=== PATIENT | male | born 1980 | race Caucasian/White ===

== ENCOUNTER 2016-07-14 01:48 | Emergency (ER) | payer MEDICARE, MEDICAID ==
[~2016-07-14] VITALS: Ht 182.9 cm; Wt 108.9 kg
[~2016-07-14 01:48] MED LIST: /OLAN5ZYD OR; FLEXERIL OR; NAPR500T OR; NEUR600T OR; RISP1TAB OR; TRAM50TA2 OR; TRIL600T OR; ZYPR5TAB OR
[2016-07-14] MEDS ORDERED: VITA50003 (02:06)
[2016-07-14] MEDS ORDERED: FLUO20CA9 (02:06)
[2016-07-14] MEDS ORDERED: RANI150T (02:06)
[2016-07-14] MEDS ORDERED: OLAN10TA2 (02:06)
[2016-07-14] MEDS ORDERED: PRAV40TA2 (02:06)
[2016-07-14] MEDS ORDERED: OXCA600T (02:06)
[2016-07-14] MEDS ORDERED: MIRT30TA3 (02:06)
[2016-07-14] MEDS ORDERED: VITA-130 (02:06)
[2016-07-14] MEDS ORDERED: TIZA4CAP3 (02:06)
[2016-07-14] MEDS ORDERED: LISI10TA4 (02:06)
[2016-07-14] MEDS ORDERED: KETOROLAC 60 MG/2 ML VIAL (J1885) IM ONE (04:00)
--- NOTE | 2016-07-14 04:10 | REPUSA ---
REASON FOR EXAM: Pain. TECHNIQUE: Axial CT scan images without contrast. Reformatted coronal and sagittal images. COMPARISON: None FINDINGS: There is normal signal intensity from the visualized bone marrow without evidence of replacement or a cute fracture. The conus is unremarkable. Straightening of the lumbar lordosis. This can secondary to muscular spasm and pain. The vertebral alignment is within normal limits. Evaluation of the individual levels revealed the following: L5-S1: There is mild diffuse disc bulge. The spinal canal is not narrowed. There is mild bilateral ne ural foramina narrowing. L4-5: There is 3.2 mm retrolisthesis of L4 on L5. Moderate diffuse disc bulge. Superimposed broad-bas ed right paracentral/posterolateral disc protrusion measuring 4.7 mm in its largest anteroposterior d imension. The spinal canal is mildly narrowed. There is moderate bilateral neural foramina narrowing. L3-4: There is moderate diffuse disc bulge. The spinal canal is not narrowed. There is mild bilateral neural foramina narrowing. L2-3: There is mild diffuse disc bulge. The spinal canal is not narrowed. There is no evidence of sal ral foramina narrowing. L1-2: There is mild diffuse disc bulge. The spinal canal is not narrowed. There is no evidence of sal ral foramina narrowing. Normal visualized paraspinous soft tissue structures. Impression: Straightening of normal lordosis. Spondylosis. Multilevel degenerative disc disease. Findings are more prominent at L3-L4 and L4-L5 levels.
[2016-07-14 04:52] VITALS: BP 121/56
== END 2016-07-14 04:53 | disposition home or self-care (01) ==
LOC: M ED 04:15
DX: M54.9 Dorsalgia, unspecified (principal); G89.29 Other chronic pain; M51.36 Other intervertebral disc degeneration, lumbar region; M51.37 Other intervertebral disc degeneration, lumbosacral region; I10 Essential (primary) hypertension; E78.5 Hyperlipidemia, unspecified; F17.200 Nicotine dependence, unspecified, uncomplicated; Z88.5 Allergy status to narcotic agent; Z79.899 Other long term (current) drug therapy
CPT/HCPCS: 72131; 96372; 99282; J1885

== ENCOUNTER → 2016-08-07 | Outpatient (CLI) | payer MEDICARE, MEDICAID ==
[~2016-08-07] MED LIST changes: +FLUO20CA9; +LISI10TA4; +MIRT30TA3; +OLAN10TA2; +OXCA600T; +PRAV40TA2; +RANI150T; +TIZA4CAP3; +VITA-130; +VITA50003
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
== END ==
LOC: M PAIN 13:20
PROVIDERS: ATTEND Nurse Practitioner Family
DX: G89.29 Other chronic pain (principal); M51.26 Other intervertebral disc displacement, lumbar region; M54.16 Radiculopathy, lumbar region; K21.9 Gastro-esophageal reflux disease without esophagitis; I10 Essential (primary) hypertension; F31.9 Bipolar disorder, unspecified; F17.210 Nicotine dependence, cigarettes, uncomplicated; E78.00 Pure hypercholesterolemia, unspecified; E55.9 Vitamin D deficiency, unspecified; J45.909 Unspecified asthma, uncomplicated; Z79.1 Long term (current) use of non-steroidal anti-inflammatories (NSAID); Z79.899 Other long term (current) drug therapy; Z88.5 Allergy status to narcotic agent; Z88.6 Allergy status to analgesic agent

== ENCOUNTER → 2016-08-27 | Outpatient (CLI) | payer MEDICARE, MEDICAID ==
[~2016-08-27] MED LIST changes: +ISOVUE-M 300 61% 15ML VIAL (Q9967) As Ordered ONE; +LIDOCAINE 1% SDV INJ 30 ML VIAL As Ordered ONE; +diazePAM 5 MG TAB As Ordered ONE; +methylPREDNISolone SUSP 40 MG/ML (DEPO-medrol) VIAL (J1030) As Ordered ONE; +oxyCODONE 5MG TAB As Ordered ONE
--- NOTE | 2016-08-27 14:48 | REP ---
FLUOROSCOPIC GUIDANCE SPINAL INJECTION: The images were reviewed with Dr. Sheldon. The patient has a history of back pain. The portable C-arm is provided in the OR for Dr. Marrero for fluoroscopic guidance. Three intraoperative fluoroscopic spot films are obtained for needle placement verification for lumbar epidural injection The films are on the PACS system and are available for review. 24 seconds of fluoroscopy time was utilized for this procedure. Reviewed by LLUVIA Gandhi 08/27/2016 05:05 PEdited and Signed by Krishna Sheldon MD 08/27/2016 05:15 P
--- NOTE | 2016-09-07 00:24 | ECWPNPC ---
PATIENT NAME: BENITA ANGEL : 1980 GENDER: MALE VISIT DATE: 08/27/2016 DISCHARGE DATE: 08/27/16 1411 VISIT LOCKED DATE TIME: PHYSICIAN: SANTOSH COLBERT RESOURCE: SANTOSH COLBERT REASON FOR APPOINTMENT 1. INTERFARAMINAL LE, L4/5 HISTORY OF PRESENT ILLNESS HISTORY OF PRESENT ILLNESS: PAIN THE PATIENT DESCRIBES THE PAIN... FALL RISK SCREENING: SCREENING :NO FALLS IN THE PAST YEAR CURRENT MEDICATIONS TAKING PROZAC 10 MG CAPSULE 1 CAPSULE IN THE MORNING ORALLY ONCE A DAY, NOTES: 08/26/16 0900 TAKING TRILEPTAL 300 MG TABLET ORALLY , NOTES: 08/26/162099 TAKING EPIPEN SUBCUTANEOUSLY PRN, NOTES: NEVER USED TAKING ZANTAC 150 MAXIMUM STRENGTH 150 MG TABLET 1 TABLET AT BEDTIME ORALLY BID, NOTES: 08/26/162099 TAKING LISINOPRIL 10 MG TABLET 1 TABLET ORALLY ONCE A DAY, NOTES: 08/26/16899 TAKING ERGOCALCIFEROL 78273 UNIT CAPSULE 1 CAPSULE ORALLY WEEKLY, NOTES: 08/22/16 TAKING PRAVACHOL 40 MG TABLET 1 TABLET ORALLY ONCE A DAY, NOTES: 08/26/162099 TAKING PRAVASTATIN SODIUM 40 MG TABLET 1 TABLET ORALLY ONCE A DAY, NOTES: 08/26/162099 TAKING OXCARBAZEPINE 600 MG TABLET 1 CAP ORALLY BID, NOTES: 08/26/162099 TAKING SYMBYAX 6-25 MG CAPSULE 1 CAPSULE IN THE EVENING ORALLY ONCE A DAY, NOTES: 08/26/162099 TAKING OLANZAPINE-FLUOXETINE HCL 6-25 MG CAPSULE 1 CAPSULE IN THE EVENING ORALLY ONCE A DAY, NOTES: 08/26/162099 TAKING IBUPROFEN 800 MG TABLET 1 TABLET WITH FOOD OR MILK ORALLY THREE TIMES A DAY, NOTES: 1 WEEK AGO TAKING VITAMIN C 1000 MG TABLET CHEWABLE 1 TABLET ORALLY ONCE A DAY, NOTES: 08/26/162099 TAKING TIZANIDINE HCL 4 MG TABLET 1 TABLET NEEDED ORALLY THREE TIMES A DAY, NOTES: 08/26/162099 NOT-TAKING DRISDOL 22864 UNIT CAPSULE 1 CAPSULE ORALLY WEEKLY UNKNOWN CHANTIX 1 MG TABLET 1 TABLET ORALLY TWICE A DAY MEDICATION LIST REVIEWED AND RECONCILED WITH THE PATIENT PAST MEDICAL HISTORY GERD HTN BIPOLAR HYPERCHOLESTEROLEMIA INTERVERTEBRAL DISC DEGENERATION VITAMIN D DEFICIANCY HYPERCHOLESTEROLEMIA ASTHMA ALLERGIES TYLENOL: NAUSEA/VOMITING CODEINE SULFATE: HIVES REVIEW OF SYSTEMS REVIEWED BY: PROVIDER: . CONSTITUTIONAL: ANY CHANGE IN YOUR MEDICAL CONDITION? NO . CHILLS NO . FEVER NO . INFECTION: DO YOU HAVE NEW INFECTIONS? NO . DO YOU HAVE HISTORY OF MRSA? NO . MUSCULOSKELETAL: ANY NEW PATTERNS OF PAIN OR NUMBNESS? NO . GASTROENTEROLOGY: ANY NEW CHANGE IN BOWEL CONTROL? NO . GENITOURINARY: ANY NEW CHANGE IN BLADDER CONTROL? NO . IS THERE A CHANCE YOU COULD BE ? NO . HEMATOLOGY/LYMPH: DO YOU TAKE ANY BLOOD THINNERS? (FOR EXAMPLE- COUMADIN, PLAVIX, AGGRENOX, PLATEL, PRADAXA, OR XARELTO) NO . WHEN WAS YOUR LAST DOSE? DATE: TIME: . NEUROLOGY: HAVE YOU FALLEN IN THE PAST 6 MONTHS? NO . ANY NEW EXTREMITY NUMBNESS OR WEAKNESS? NO . CARDIOLOGY: DO YOU HAVE A PACEMAKER OR DEFIBRILLATOR? NO . RESPIRATORY: HAVE YOU BEEN SICK IN THE PAST WEEK? NO . FEVER NO . FLU LIKE SYMPTOMS? NO . COUGH NO . INTEGUMENTARY: DO YOU HAVE ANY RASHES OR OPEN SORES? NO . ALLERGIC/IMMUNO: ARE YOU ALLERGIC TO SHELLFISH OR IV DYE? NO . ANY NEW ALLERGIES? NO . PSYCHIATRIC: DO YOU HAVE THOUGHTS OF HURTING YOURSELF OR SOMEONE ELSE? NO . ARE YOU ABUSED, NEGLECTED, OR IN AN UNSAFE ENVIRONMENT? NO . ENDOCRINOLOGY: ARE YOU DIABETIC? NO . OTHER: DO YOU NEED ANY PRESCRIPTIONS? NO . IF YES, PLEASE LIST: ____ . ANY NEW PROBLEMS WITH YOUR MEDICATIONS? NO . WHEN DID YOU LAST EAT? ____08/26/16 1900 . WHEN DID YOU LAST DRINK? ____08/26/16 2400 . WHAT DID YOU LAST DRINK? ____WATER . NAME OF PERSON DRIVING YOU HOME? ____WOODY . DO YOU HAVE ANY OTHER QUESTIONS OR CONCERNS NO . VITAL SIGNS WT 229.8 LBS, HT 70 IN, BMI 32.97 INDEX, BP 140/73 MM HG, HR 71 /MIN, RR 16 /MIN, TEMP 98.0 F, OXYGEN SAT % 94%, NA INITIALS TL 1154, REVIEWED BY: NL. ASSESSMENTS INTERVERTEBRAL DISC DISORDERS WITH RADICULOPATHY, LUMBOSACRAL REGION - M51.17 (PRIMARY) PROCEDURES PRE PROCEDURE DIAGNOSIS LUMBOSACRAL DISC DISORDER WITH RADICULOPATHY POST PROCEDURE DIAGNOSIS LUMBOSACRAL DISC DISORDER WITH RADICULOPATHY PROCEDURE LUMBAR EPIDURAL STEROID INJECTION UNDER FLUOROSCOPIC GUIDANCE SURGEON DR. SANTOSH COLBERT COMPUTER SYSTEMS TECHNOLOGY INSTRUCTOR NONE ANESTHESIA LOCAL PRE PROCEDURE NOTE THE PATIENT HAS A HISTORY OF CHRONIC LOW BACK PAIN. I EVALUATE THE PATIENT AND REVIEWED THE CHART. I WENT OVER THE RISKS, ALTERNATIVES, AND BENEFITS ASSOCIATED WITH THIS PROCEDURE. THE PATIENT WOULD LIKE TO PROCEED AND GIVE CONSENT TO PERFORMED THE PROCEDURE. THE PATIENT DENIES UNEXPLAINABLE WEIGHT LOSS, FEVER, CHILLS, OR NEW CHANGES IN URINARY OR BOWEL CONTROL DESCRIPTION OF PROCEDURE THE PATIENT WAS BROUGHT TO THE PROCEDURE ROOM AND PLACED IN THE PRONE POSITION. THE LUMBOSACRAL AREA WAS CLEANED WITH BETADINE SOLUTION AND DRAPED ASEPTICALLY. THE PROCEDURE WAS DONE UNDER STERILE CONDITIONS. I CHECKED LATERALITY AND THE LEVEL WHERE THE PROCEDURE WAS GOING TO BE PERFORMED WITH THE PATIENT AND THE SUPPORTING STAFF AT THE MOMENT OF THE TIME OUT IN THE PROCEDURE ROOM. UNDER FLUOROSCOPIC GUIDANCE, THE TARGET POINT WAS SELECTED AT THE INTERLAMINAR LEVEL OF L5-S1. LIDOCAINE WAS USED TO NUMB THE SKIN AND THE SUBCUTANEOUS TISSUE BELOW IT. EPIDURAL TUOHY NEEDLE, 17-GAUGE, WAS ADVANCED UNDER FLUOROSCOPIC GUIDANCE AND FOLLOWING PATIENT FEEDBACK UNTIL THE EPIDURAL SPACE WAS REACHED, 7 CM DEEP INTO THE SKIN BY THE LOSS OF RESISTANCE TECHNIQUE. ISOVUE M DYE 30%, 0.25 ML, WAS INJECTED SHOWING ADEQUATE SPREAD OF THE DYE. THEN, A SOLUTION OF 3 ML OF NORMAL SALINE WITH DEPO-MEDROL 60 MG WAS INJECTED SLOWLY FOLLOWING PATIENT FEEDBACK. THERE WAS NO EVIDENCE OF BLOOD, PARESTHESIA OR CEREBROSPINAL FLUID DURING THE PROCEDURE. THE PATIENT WAS SENT TO THE RECOVERY ROOM. THE PATIENT WAS MOVING THE EXTREMITIES AND DOING WELL. THERE WAS NO COMPLICATION DURING THE PROCEDURE. FLUOROSCOPY TIME WAS 24 SECONDS POST PROCEDURE NOTE THE PATIENT WILL BE SEEN IN A FOLLOW UP IN THE NEXT FEW WEEKS. INSTRUCTIONS WERE GIVEN, QUESTIONS WERE ANSWERED, AND THE PATIENT EXPRESSED UNDERSTANDING AND AGREES WITH THE PLAN. I, ERIC ELIAS, DOCUMENTED THE ABOVE INFORMATION ACTING A SCRIBE FOR DR. COLBERT. I HAVE REVIEWED THE ABOVE DOCUMENT, WRITTEN BY ERIC HARMON AND I VERIFY THAT IT IS ACCURATE DIAGNOSTIC IMAGING [facility] FLUORO GUIDE SPINE INJECTION (PAIN)[id number] PROCEDURE CODES 05825 LUMBAR/SACRAL W/ IMAGING 6045F RADXPS IN END [id number] PXD DISPOSITION & COMMUNICATION FOLLOW UP 3 WEEKS ELECTRONICALLY SIGNED BY SANTOSH COLBERT MD ON 09/06/2016 AT 12:32 PM EDT DISCLAIMER : THIS IS A VISIT SUMMARY EXTRACTED FROM THE [employer] CHART. IT IS NOT A COPY OF THE [employer] PROGRESS NOTE. ZONIA
== END ==
LOC: M PAIN 11:40
PROVIDERS: ATTEND Anesthesiology
DX: G89.29 Other chronic pain (principal); M51.17 Intervertebral disc disorders with radiculopathy, lumbosacral region; K21.9 Gastro-esophageal reflux disease without esophagitis; I10 Essential (primary) hypertension; F31.9 Bipolar disorder, unspecified; E78.00 Pure hypercholesterolemia, unspecified; E55.9 Vitamin D deficiency, unspecified; J45.909 Unspecified asthma, uncomplicated; Z88.5 Allergy status to narcotic agent; Z88.6 Allergy status to analgesic agent; Z79.1 Long term (current) use of non-steroidal anti-inflammatories (NSAID); Z79.899 Other long term (current) drug therapy
CPT/HCPCS: 62323; J1030; Q9967

== ENCOUNTER 2016-09-23 03:32 | Emergency (ER) | payer MEDICARE, MEDICAID ==
[~2016-09-23 03:32] MED LIST changes: +FLUO20CA19; -FLUO20CA9; -ISOVUE-M 300 61% 15ML VIAL (Q9967) As Ordered ONE; -LIDOCAINE 1% SDV INJ 30 ML VIAL As Ordered ONE; -VITA-130; +VITA1CAP40; -VITA50003; +VITA500T; -diazePAM 5 MG TAB As Ordered ONE; -methylPREDNISolone SUSP 40 MG/ML (DEPO-medrol) VIAL (J1030) As Ordered ONE; -oxyCODONE 5MG TAB As Ordered ONE
== END 2016-09-23 03:46 | disposition left against medical advice (07) ==
LOC: M ED 03:32
DX: H92.20 Otorrhagia, unspecified ear (principal); Z53.29 Procedure and treatment not carried out because of patient's decision for other reasons

== ENCOUNTER → 2017-02-11 | Outpatient (CLI) | payer MEDICARE, MEDICAID | LOC: M PAIN 14:00 | PROVIDERS: ATTEND Nurse Practitioner Family | DX: M51.26 Other intervertebral disc displacement, lumbar region (principal); M54.16 Radiculopathy, lumbar region; G89.29 Other chronic pain; F17.210 Nicotine dependence, cigarettes, uncomplicated; Z79.899 Other long term (current) drug therapy; Z88.8 Allergy status to other drugs, medicaments and biological substances; Z88.5 Allergy status to narcotic agent ==

== ENCOUNTER → 2017-04-02 | Outpatient (CLI) | payer MEDICARE, MEDICAID ==
[~2017-04-02] MED LIST changes: -/OLAN5ZYD OR; -FLEXERIL OR; -FLUO20CA19; +ISOVUE-M 300 61% 15ML VIAL (Q9967) As Ordered; +LIDOCAINE 1% SDV INJ 30 ML VIAL As Ordered; -LISI10TA4; -MIRT30TA3; -NAPR500T OR; -NEUR600T OR; -OLAN10TA2; -OXCA600T; -PRAV40TA2; -RANI150T; -RISP1TAB OR; -TIZA4CAP3; -TRAM50TA2 OR; -TRIL600T OR; -VITA1CAP40; -VITA500T; -ZYPR5TAB OR; +diazePAM 5 MG TAB As Ordered; +methylPREDNISolone SUSP 40 MG/ML (DEPO-medrol) VIAL (J1030) As Ordered; +oxyCODONE 5MG TAB As Ordered
== END ==
LOC: M PAIN 14:00
DX: G89.29 Other chronic pain (principal); M51.16 Intervertebral disc disorders with radiculopathy, lumbar region; I10 Essential (primary) hypertension; F31.9 Bipolar disorder, unspecified; E78.00 Pure hypercholesterolemia, unspecified; J45.909 Unspecified asthma, uncomplicated; F17.210 Nicotine dependence, cigarettes, uncomplicated; Z88.5 Allergy status to narcotic agent; Z88.8 Allergy status to other drugs, medicaments and biological substances; Z79.899 Other long term (current) drug therapy
CPT/HCPCS: J1030

== ENCOUNTER 2017-04-24 19:55 | Emergency (ER) | payer MEDICARE, MEDICAID ==
[2017-04-24] MEDS: traMADol 50 MG TAB PO (22:36)
== END 2017-04-24 23:12 | disposition home or self-care (01) ==
LOC: M ED 19:55
DX: S92.424A Nondisplaced fracture of distal phalanx of right great toe, initial encounter for closed fracture (principal); X58.XXXA Exposure to other specified factors, initial encounter; Y92.009 Unspecified place in unspecified non-institutional (private) residence as the place of occurrence of the external cause; J45.909 Unspecified asthma, uncomplicated; I10 Essential (primary) hypertension; K21.9 Gastro-esophageal reflux disease without esophagitis; M54.9 Dorsalgia, unspecified; G89.29 Other chronic pain; E78.9 Disorder of lipoprotein metabolism, unspecified; F31.9 Bipolar disorder, unspecified; Z79.899 Other long term (current) drug therapy; Z88.5 Allergy status to narcotic agent
CPT/HCPCS: 73630

== ENCOUNTER 2017-06-03 00:09 | Emergency (ER) | payer MEDICARE, MEDICAID ==
[2017-06-03] MEDS: KETOROLAC 30 MG/ML VIAL (J1885) IV (02:07)
[2017-06-03] MEDS: dexameTHASONE 20 MG/5 ML VIAL (J1100) IV (02:10)
== END 2017-06-03 02:59 | disposition home or self-care (01) ==
LOC: M ED 00:09
DX: J42 Unspecified chronic bronchitis (principal); R07.89 Other chest pain; I10 Essential (primary) hypertension; E78.5 Hyperlipidemia, unspecified; F33.9 Major depressive disorder, recurrent, unspecified; F17.200 Nicotine dependence, unspecified, uncomplicated; Z88.5 Allergy status to narcotic agent; Z79.899 Other long term (current) drug therapy
CPT/HCPCS: J1100

== ENCOUNTER 2017-12-20 07:24 | Emergency (ER) | payer MEDICARE, MEDICAID ==
[2017-12-20] MEDS: LIDOCAINE 2% MDV 20 ML VIAL SC (08:00)
[2017-12-20] MEDS: CLINDAMYCIN 150 MG CAP PO (08:01)
[2017-12-20] MEDS: NORCO, ANEXSIA 5/325MG TABLET (HYDROcodone/ACETAMINOPHEN) PO (08:01)
[2017-12-20] MEDS: ONDANSETRON 4 MG ORAL DISINTEGRATING TAB (Q0162 PER 1MG) PO (09:53)
== END 2017-12-20 10:00 | disposition home or self-care (01) ==
LOC: M ED 07:24
DX: L02.214 Cutaneous abscess of groin (principal); I10 Essential (primary) hypertension
CPT/HCPCS: Q0162

== ENCOUNTER 2017-12-22 16:26 | Emergency (ER) | payer MEDICARE, MEDICAID | END 2017-12-22 17:09 | disposition home or self-care (01) | LOC: M ED 16:26 | DX: L02.214 Cutaneous abscess of groin (principal); Z48.00 Encounter for change or removal of nonsurgical wound dressing; I10 Essential (primary) hypertension; E78.5 Hyperlipidemia, unspecified; E11.9 Type 2 diabetes mellitus without complications; R51 Headache; Z77.098 Contact with and (suspected) exposure to other hazardous, chiefly nonmedicinal, chemicals; Z79.899 Other long term (current) drug therapy; Z79.2 Long term (current) use of antibiotics; Z79.84 Long term (current) use of oral hypoglycemic drugs | CPT/HCPCS: 99282 ==

== ENCOUNTER 2017-12-25 13:01 | Emergency (ER) | payer MEDICARE, MEDICAID | END 2017-12-25 14:13 | disposition home or self-care (01) | LOC: M ED 13:01 | DX: Z48.00 Encounter for change or removal of nonsurgical wound dressing (principal); I10 Essential (primary) hypertension; J45.909 Unspecified asthma, uncomplicated; F31.9 Bipolar disorder, unspecified; Z79.899 Other long term (current) drug therapy; Z88.5 Allergy status to narcotic agent | CPT/HCPCS: 99283 ==

== ENCOUNTER → 2018-01-27 | Outpatient (REF) | payer MEDICARE, MEDICAID ==
[2018-01-27 18:14] LABS: RUBELLA IgG QUALITATIVE IMMUNE (IMMUNE)
[2018-01-29 08:15] LABS: MUMPS VIRUS IgG ANTIBODY <9.0 AU/mL (Immune >10.9)
[2018-01-29 08:15] LABS: RUBEOLA IgG ANTIBODY >300.0 AU/mL (Immune >29.9)
== END ==
LOC: M LAB REF 16:50
DX: Z01.84 Encounter for antibody response examination (principal)
CPT/HCPCS: 86762

== ENCOUNTER → 2018-05-09 | Outpatient (REF) | payer MEDICARE, MEDICAID ==
[~2018-05-09] MED LIST changes: +/OLAN5ZYD OR; +AMOX875T2; +CLEO300C2 PO; +CLON0.2T; +DULO1CAP3; +FLEXERIL OR; +FLUO20CA19; +GABA600T4; -ISOVUE-M 300 61% 15ML VIAL (Q9967) As Ordered; +KETO10TAB PO; -LIDOCAINE 1% SDV INJ 30 ML VIAL As Ordered; +LISI10TA4; +METF10004; +MIRT30TA3; +NAPR-50 PO; +NAPR500T OR; +NEUR600T OR; +NORCOTAB PO; +OLAN10TA2; +OXCA600T8; +PRAV40TA2; +PRED20TA PO; +RANI150T; +RISP1TAB OR; +TIZA4CAP; +TRAM50TA2 OR; +TRIL600T OR; +VITA50005; +VITA500T; +ZYPR5TAB OR; -diazePAM 5 MG TAB As Ordered; -methylPREDNISolone SUSP 40 MG/ML (DEPO-medrol) VIAL (J1030) As Ordered; -oxyCODONE 5MG TAB As Ordered
[2018-05-09 19:37] LABS: BASO % 0.3 % (0.0-1.0); EOS # 0.2 10^3/uL (0.0-0.50); EOS % 1.9 % (0.0-3.0); HEMATOCRIT 45.9 % (42.0-52.0); HEMOGLOBIN 15.7 g/dl (13.5-17.5); LYMPH # 2.2 10^3/uL (1.5-4.5); LYMPH % 21.4 % (24.0-44.0); MEAN CORPUSCULAR HEMOGLOBIN 29.3 pg (27.0-33.0); MEAN CORPUSCULAR HGB CONC 34.2 g/dl (32.0-36.5); MEAN CORPUSCULAR VOLUME 85.8 fl (80.0-96.0); MONO # 0.6 10^3/uL (0.0-0.8); MONO % 5.8 % (0.0-5.0); NEUTROPHILS # 7.3 10^3/uL (1.8-7.7); NEUTROPHILS % 70.3 % (36.0-66.0); PLATELET COUNT, AUTOMATED 235 10^3/uL (150-450); RED BLOOD COUNT 5.35 10^6/uL (4.30-6.10); WHITE BLOOD COUNT 10.3 10^3/uL (4.0-10.0)
[2018-05-09 19:51] LABS: ALBUMIN 3.9 GM/DL (3.2-5.2); ALT/SGPT 39 U/L (12-78); BILIRUBIN,TOTAL 0.4 MG/DL (0.2-1.0); BLOOD UREA NITROGEN 5 MG/DL (7-18); CALCIUM LEVEL 8.6 MG/DL (8.5-10.1); CARBON DIOXIDE LEVEL 27 MEQ/L (21-32); CHLORIDE LEVEL 105 MEQ/L (98-107); CHOLESTEROL LEVEL 203 MG/DL (<200); CHOLESTEROL RISK RATIO 4.833 (<5); CREATININE FOR GFR 0.89 MG/DL (0.70-1.30); GLOMERULAR FILTRATION RATE > 60.0 (>60); GLUCOSE, FASTING 99 MG/DL (70-100); HDL CHOLESTEROL 42 MG/DL (>40); LDL CHOLESTEROL 125 MG/DL (<100); NON-HDL-C 161 MG/DL; POTASSIUM SERUM 3.8 MEQ/L (3.5-5.1); SODIUM LEVEL 142 MEQ/L (136-145); TOTAL PROTEIN 7.4 GM/DL (6.4-8.2); TRIGLYCERIDES LEVEL 181 MG/DL (<150)
[2018-05-09 19:53] LABS: HEMOGLOBIN A1c 5.9 %
[2018-05-09 19:54] LABS: TOTAL 25(OH) VITAMIN D 8.7 NG/ML (30.0-100.0); VITAMIN B12 LEVEL 538 PG/ML
[2018-05-12 11:24] LABS: FOLATE 6.1 NG/ML
== END ==
LOC: M LAB REF 19:16
PROVIDERS: ATTEND Nurse Practitioner Family
DX: I10 Essential (primary) hypertension (principal); Z13.9 Encounter for screening, unspecified

== ENCOUNTER 2018-05-30 10:09 | Emergency (ER) | payer MEDICARE, MEDICAID ==
[~2018-05-30] VITALS: Ht 182.9 cm; Wt 116.3 kg
[2018-05-30] MEDS ORDERED: TRAM50TA2 (10:43)
[2018-05-30] MEDS ORDERED: MIRT30TA3 PO (10:43)
[2018-05-30] MEDS ORDERED: KETOROLAC TROMETHAMINE 10 MG TAB PO ONE (10:45)
--- NOTE | 2018-05-30 11:53 | REP ---
RIGHT ANKLE COMPLETE: 05/30/2018. Clinical history: Ankle pain. Findings: Four views were provided. The mortise joint is symmetric and preserved. There is no talar dome osteochondral defect. No fracture or focal bone lesion in the distal tibia or fibula. No avulsion. Subtalar joints are intact. No heel spurs. Calcaneus and talus and their articulations with the tarsal bones and each other are normal. Impression: 1. Negative right ankle series for fracture, avulsion, disruption of the mortise joint nor any acute bony finding. I see no heel spurs. Subtalar joints intact. Electronically Signed by Jordy Burciaga MD 05/30/2018 06:35 P
[2018-05-30] MEDS ORDERED: IBUP80TA PO (12:03)
[2018-05-30 12:21] VITALS: BP 123/64
== END 2018-05-30 12:23 | disposition home or self-care (01) ==
LOC: M ED 10:09
DX: S93.411A Sprain of calcaneofibular ligament of right ankle, initial encounter (principal); W19.XXXA Unspecified fall, initial encounter; Y92.410 Unspecified street and highway as the place of occurrence of the external cause

== ENCOUNTER 2018-08-06 01:48 | Emergency (ER) | payer MEDICARE, MEDICAID ==
[~2018-08-06] VITALS: Ht 182.9 cm; Wt 118.2 kg
[~2018-08-06 01:48] MED LIST changes: -/OLAN5ZYD OR; +HYDR-3715 PO; +IBUP80TA PO; +MIRT30TA3 PO; -NAPR-50 PO; +NAPR-837 PO; -NORCOTAB PO; +TRAM50TA2; +ZYPR1TAB3 OR
[2018-08-06] MEDS ORDERED: KETOROLAC 30 MG/ML VIAL (J1885) IV ONE (03:30)
[2018-08-06] MEDS ORDERED: METOCLOPRAMIDE INJ 10MG/2ML VIAL (J2765) IV ONE (03:30)
[2018-08-06] MEDS ORDERED: PSEU30TA88 PO (04:46)
[2018-08-06 04:53] VITALS: BP 120/80
== END 2018-08-06 04:56 | disposition home or self-care (01) ==
LOC: M ED 01:48
DX: R51 Headache (principal); I10 Essential (primary) hypertension; F31.9 Bipolar disorder, unspecified; F11.11 Opioid abuse, in remission; Z79.899 Other long term (current) drug therapy; Z88.5 Allergy status to narcotic agent; F17.210 Nicotine dependence, cigarettes, uncomplicated
CPT/HCPCS: 96374; 96375; 99284; J1885; J2765

== ENCOUNTER 2018-08-24 21:00 | Emergency (ER) | payer MEDICARE, MEDICAID ==
[~2018-08-24] VITALS: Ht 180.3 cm; Wt 122.7 kg
[~2018-08-24 21:00] MED LIST changes: +PSEU30TA88 PO
[2018-08-24] MEDS ORDERED: NS 1,000 ML IV ONE (21:15)
[2018-08-24 22:45] VITALS: BP 140/77
--- NOTE | 2018-08-25 07:08 | ECGEPIP ---
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
== END 2018-08-24 22:55 | disposition home or self-care (01) ==
LOC: M ED 21:00
DX: E86.0 Dehydration (principal); F31.9 Bipolar disorder, unspecified; J45.909 Unspecified asthma, uncomplicated; Z72.0 Tobacco use; Z79.899 Other long term (current) drug therapy; Z88.5 Allergy status to narcotic agent; Z79.84 Long term (current) use of oral hypoglycemic drugs

== ENCOUNTER 2018-09-08 03:53 | Emergency (ER) | payer MEDICARE, MEDICAID ==
[~2018-09-08] VITALS: Ht 180.3 cm; Wt 111.4 kg
[2018-09-08 05:44] VITALS: BP 135/76
[2018-09-08] MEDS ORDERED: KETOROLAC 60 MG/2 ML VIAL (J1885) IM ONE (05:45)
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
--- NOTE | 2018-09-08 07:02 | REP ---
Clinical: Trauma. Technique: AP, lateral, bilateral oblique views left wrist . Findings: The carpal bones, surrounding osseous structures, soft tissues, and joint spaces are normal. There is no evidence for acute fracture or dislocation. No subcutaneous emphysema or radiodense foreign body. Impression: Normal left wrist series. No acute fracture or dislocation Electronically Signed by Medhat Peterson MD 09/08/2018 06:53 A
== END 2018-09-08 05:54 | disposition home or self-care (01) ==
LOC: M ED 03:53
DX: S96.212A Strain of intrinsic muscle and tendon at ankle and foot level, left foot, initial encounter (principal); S66.912A Strain of unspecified muscle, fascia and tendon at wrist and hand level, left hand, initial encounter; X58.XXXA Exposure to other specified factors, initial encounter; Y92.830 Public park as the place of occurrence of the external cause; Y93.64 Activity, baseball; G89.29 Other chronic pain; F17.200 Nicotine dependence, unspecified, uncomplicated; Z88.5 Allergy status to narcotic agent; Z79.899 Other long term (current) drug therapy; Z79.84 Long term (current) use of oral hypoglycemic drugs
CPT/HCPCS: 73110; 73610; 96372; 99283; J1885

== ENCOUNTER → 2018-09-16 | Outpatient (CLI) | payer MEDICARE, MEDICAID ==
[~2018-09-16] MED LIST changes: -DULO1CAP3; +DULO1CAP6
--- NOTE | 2018-09-16 16:41 | REP ---
Clinical: Wrist sprain. Technique: AP and lateral views of the left wrist. Findings: The carpal bones, surrounding osseous structures, soft tissues, and joint spaces are normal. There is no evidence for acute fracture or dislocation. No subcutaneous emphysema or radiodense foreign body. Impression: Normal wrist series. No acute fracture or dislocation Electronically Signed by Medhat Peterson MD 09/16/2018 04:32 P
== END ==
LOC: M RAD 16:23
PROVIDERS: ATTEND Physician Assistant Medical
DX: S63.502A Unspecified sprain of left wrist, initial encounter (principal); X58.XXXA Exposure to other specified factors, initial encounter; Y92.9 Unspecified place or not applicable

== ENCOUNTER 2019-09-17 20:36 | Emergency (ER) | payer MEDICARE, MEDICAID ==
[~2019-09-17] VITALS: Ht 182.9 cm; Wt 115.2 kg
[2019-09-17 20:36] VITALS: BP 165/87
[~2019-09-17 20:36] MED LIST changes: -FLUO20CA19; +FLUO20CA22; +VITA-243; -VITA500T
[2019-09-17] MEDS ORDERED: FLUTISP (20:42)
[2019-09-17] MEDS ORDERED: AZEL0.055 (20:42)
[2019-09-17] MEDS ORDERED: LATU40TA (20:42)
[2019-09-17] MEDS ORDERED: QUET100T2 (20:42)
[2019-09-17] MEDS ORDERED: ASPE4PAD TOP (21:45)
[2019-09-17] MEDS ORDERED: methocarbamoL 750 MG TAB PO ONE (21:45)
[2019-09-17] MEDS ORDERED: ROBA750T4 PO (21:45)
[2019-09-17] MEDS ORDERED: BIOF4GEL4 TOP (21:45)
== END 2019-09-17 21:50 | disposition home or self-care (01) ==
LOC: M ED 20:36
DX: M54.5 Low back pain (principal); F17.200 Nicotine dependence, unspecified, uncomplicated; G43.709 Chronic migraine without aura, not intractable, without status migrainosus; I10 Essential (primary) hypertension; E78.00 Pure hypercholesterolemia, unspecified; J45.909 Unspecified asthma, uncomplicated; F41.9 Anxiety disorder, unspecified; F32.9 Major depressive disorder, single episode, unspecified; Z79.899 Other long term (current) drug therapy; Z88.5 Allergy status to narcotic agent

== ENCOUNTER → 2019-09-24 | Outpatient (REF) | payer MEDICARE, MEDICAID ==
[~2019-09-24] MED LIST changes: +ASPE4PAD TOP; +AZEL0.055; +BIOF4GEL4 TOP; +FLUTISP; +LATU40TA; +MEDR4PAK PO; +QUET100T2; +ROBA750T4 PO
[2019-09-24 15:54] LABS: BASO % 0.3 % (0.0-1.0); EOS # 0.2 10^3/uL (0.0-0.5); EOS % 1.5 % (0.0-3.0); HEMATOCRIT 46.3 % (42.0-52.0); HEMOGLOBIN 15.9 g/dl (13.5-17.5); LYMPH # 2.7 10^3/uL (1.5-5.0); LYMPH % 23.1 % (24.0-44.0); MEAN CORPUSCULAR HEMOGLOBIN 29.9 pg (27.0-33.0); MEAN CORPUSCULAR HGB CONC 34.3 g/dl (32.0-36.5); MONO # 0.9 10^3/uL (0.0-0.8); MONO % 7.9 % (0.0-5.0); NEUTROPHILS # 7.8 10^3/uL (1.5-8.5); NEUTROPHILS % 66.9 % (36.0-66.0); PLATELET COUNT, AUTOMATED 243 10^3/uL (150-450); RED BLOOD COUNT 5.32 10^6/uL (4.30-6.10); WHITE BLOOD COUNT 11.7 10^3/uL (4.0-10.0)
[2019-09-24 16:29] LABS: ALBUMIN 3.6 GM/DL (3.2-5.2); ALT/SGPT 32 U/L (12-78); BILIRUBIN,TOTAL 0.2 MG/DL (0.2-1.0); BLOOD UREA NITROGEN 10 MG/DL (7-18); CALCIUM LEVEL 9.2 MG/DL (8.5-10.1); CARBON DIOXIDE LEVEL 28 MEQ/L (21-32); CHLORIDE LEVEL 108 MEQ/L (98-107); CHOLESTEROL LEVEL 201 MG/DL (<200); CHOLESTEROL RISK RATIO 5.911 (<5); CREATININE FOR GFR 0.91 MG/DL (0.70-1.30); FREE T4 1.24 NG/DL (0.76-1.46); GLOMERULAR FILTRATION RATE > 60.0 (>60); GLUCOSE, FASTING 75 MG/DL (70-100); HDL CHOLESTEROL 34 MG/DL (>40); LDL CHOLESTEROL 134 MG/DL (<100); NON-HDL-C 167 MG/DL; SODIUM LEVEL 142 MEQ/L (136-145); TOTAL PROTEIN 7.4 GM/DL (6.4-8.2); TRIGLYCERIDES LEVEL 167 MG/DL (<150)
[2019-09-24 17:02] LABS: HEMOGLOBIN A1c 5.9 %
== END ==
LOC: M LAB REF 15:22
PROVIDERS: ATTEND Nurse Practitioner Family
DX: R73.03 Prediabetes (principal); Z13.9 Encounter for screening, unspecified; M54.89 Other dorsalgia; F17.290 Nicotine dependence, other tobacco product, uncomplicated; I10 Essential (primary) hypertension; Z79.899 Other long term (current) drug therapy

== ENCOUNTER 2019-10-17 09:10 | Emergency (ER) | payer MEDICARE, MEDICAID ==
[~2019-10-17 09:10] MED LIST changes: +ACETAMINOPHEN 500 MG TAB As Ordered ONE; +ACETAMINOPHEN 500 MG TAB ONE; +IBUPROFEN 600MG TAB As Ordered ONE; +IBUPROFEN 600MG TAB ONE; -MEDR4PAK PO
== END 2019-10-17 10:45 | disposition home or self-care (01) ==
LOC: M ED 09:10
DX: S99.911A Unspecified injury of right ankle, initial encounter (principal); X50.1XXA Overexertion from prolonged static or awkward postures, initial encounter; Y92.410 Unspecified street and highway as the place of occurrence of the external cause; M54.9 Dorsalgia, unspecified; F31.9 Bipolar disorder, unspecified; F17.220 Nicotine dependence, chewing tobacco, uncomplicated; Z88.5 Allergy status to narcotic agent

== ENCOUNTER 2019-10-30 18:57 | Emergency (ER) | payer MEDICARE, MEDICAID ==
[~2019-10-30 18:57] MED LIST changes: -ACETAMINOPHEN 500 MG TAB As Ordered ONE; -ACETAMINOPHEN 500 MG TAB ONE; -IBUPROFEN 600MG TAB As Ordered ONE; -IBUPROFEN 600MG TAB ONE
--- NOTE | 2019-11-30 14:18 | ECGEPIP ---
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
== END 2019-10-30 20:59 | disposition left against medical advice (07) ==
LOC: M ED 18:57
DX: Z53.21 Procedure and treatment not carried out due to patient leaving prior to being seen by health care provider (principal)

== ENCOUNTER 2019-12-05 07:20 | Emergency (ER) | payer MEDICARE, MEDICAID ==
[~2019-12-05] VITALS: Ht 182.9 cm; Wt 112.1 kg
[2019-12-05] MEDS ORDERED: MEDR4PAK PO (08:48)
[2019-12-05 08:58] VITALS: BP 140/67
== END 2019-12-05 08:59 | disposition home or self-care (01) ==
LOC: M ED 07:20
DX: G89.29 Other chronic pain (principal); M54.5 Low back pain; E11.9 Type 2 diabetes mellitus without complications; I10 Essential (primary) hypertension; E78.5 Hyperlipidemia, unspecified; J45.909 Unspecified asthma, uncomplicated; F41.9 Anxiety disorder, unspecified; F31.9 Bipolar disorder, unspecified; F17.200 Nicotine dependence, unspecified, uncomplicated; Z88.6 Allergy status to analgesic agent; Z79.899 Other long term (current) drug therapy

== ENCOUNTER 2019-12-09 23:15 | Emergency (ER) | payer MEDICARE, MEDICAID ==
[~2019-12-09] VITALS: Ht 185.4 cm; Wt 112.8 kg
[2019-12-09 23:15] VITALS: BP 151/88
[~2019-12-09 23:15] MED LIST changes: +MEDR4PAK PO
== END 2019-12-10 00:04 | disposition home or self-care (01) ==
LOC: M ED 23:15
DX: S80.812A Abrasion, left lower leg, initial encounter (principal); W18.49XA Other slipping, tripping and stumbling without falling, initial encounter; Y92.320 Baseball field as the place of occurrence of the external cause; Y93.64 Activity, baseball; Y99.9 Unspecified external cause status; Z88.6 Allergy status to analgesic agent; F17.200 Nicotine dependence, unspecified, uncomplicated; Z79.899 Other long term (current) drug therapy

== ENCOUNTER 2021-01-11 02:31 | Emergency (ER) | payer MEDICARE, MEDICAID ==
[~2021-01-11] VITALS: Ht 182.9 cm; Wt 118.2 kg
[~2021-01-11 02:31] MED LIST changes: +LISI10TA22; -LISI10TA4; -OLAN10TA2; +OLAN1TAB20
--- OUTSIDE RECORDS SUMMARY | 2021-01-11 02:38 | CCD ---
Author Author Curtis Perez Organization Unknown Address [address] [address] Phone Care Team Providers Care Radial Arm Saw Operator Name Role Phone ChrisVladimirJulieta PCP Allergies, Adverse Reactions, Alerts Concept Allergy Name Reaction Severity Onset Date Status Documentation Date Phone Number Npid Taxonomy Code Taxonomy Desc Author Last Name Author Fi rst Name Concept Type 2670 codeine sulfate vomiting 12/30/2014 Active 12/30/2014 3 [id number] Psych[facility] RX NORM Problem List Concept Problem Description Status Start Date Created Date Resolv ed Date Snomed Code F31.31 Bipolar I Disorder, Current or most rece nt episode depressed, Mild Active 02/17/2015 02/17/2015 F63.81 Intermittent Explosive Disorder Active 02/17/2015 015 F17.219 Nicotine dependence, cigarettes, wunsp disorders Activ e 07/02/2016 07/02/2016 M54.31 Sciatica, right side Active 07/19/2016 07/19/2016 Medications Rx Norm Medication Route Route Concept Start Date Stop Date Dosage Chalo quency Duration Formula Strength Dosage Form Dosage Form Code Dosage Description Medication Id Account Npid Author First Name Author Last Name Taxonomy Code Taxonomy Desc Phone Number [id number] Cymbalta 08/16/2016 once a day 60 mg capsule,delayed release(DR/EC) 73559 [id number] Claribel Duckworth [id number] Nurse Practitioner [phone] [id number] quetiapine by mouth T18770 07/22/2019 at bedtime 100 mg ta blet 64388 350575 [id number] Claribel Duckworth [id number] Nurse Practitioner [phone] [id number] Zyprexa Zydis by mouth L12815 10/18/2020 11/17/2020 at bedtime 30 15 mg tablet,disintegrating as needed 25221 554044 [phone] Claribel evangelista [id number] Nurse Practitioner [phone] Latuda by mouth [id number] 10/06/2019 01/16/2021 once a day 30 60 m g tablet 68052 332227 [phone] Claribel Duckworth [id number] Nurse Pra ctitioner [phone] 251929 gabapentin 01/06/2019 02/15/2021 three times a day 30 600 mg tablet as needed 33137 828769 [id number] Claribel Duckworth [id number] Nurse P ractitioner [phone] Social History Social History Element Description Concept Effective Date Smoking Status Unknown if ever smoked [id number] Immunizations No Data in Section Vital Signs No Data in Section Procedures Date Concept Id Description Targeted Site Concept Targeted Site Concept Type 10/26/2020 45036 Extended Individual Psychotherapy - 45 min CPT Patient has no history of implantable de vices Encounters Encounter Start Date End Date Encounter Type Description Diagnosis Di agnosis Desc Location Author First Name Author Last Name Npid Taxonomy Cod e Taxonomy Desc Phone Number Location Addr1 Location Addr2 Location [facility] Location Sta te Location Zip [id number] 10/26/2020 10/26/2020 76260 Extended Individual Psych otherapy - 45 min F31.31 Bipolar Disorder, Current Episode Depressed, Mild Comm [facility] Chris Julieta [phone] [id number] Watch Assembler [id number] [address] Plan of Treatment No Data in Section Lab Results No Data in Section Instructions No Data in Section Insurance Providers Insurance Id Policy Effective Date Policy Thru Date Company [employer] [id number] 2016 MEDICARE [id number] MEDICAID
--- OUTSIDE RECORDS SUMMARY | 2021-01-11 02:38 | CCD ---
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 12/30/2014 Active 12/30/2014 3 [id number] Psychiatric/[facility]ental [facility] RX NORM Problem [...] Name Taxonomy Code Taxonomy Desc Phone Number [id number] Cymbalta 08/16/2016 once a day 60 mg capsule,delayed release(DR/EC) 85980 935324 [id number] Claribel Duckworth [id number] 0000X Nurse Practitioner [id number] 127370 quetiapine by mouth [id number] 07/22/2019 at bedtime 100 mg ta blet 10014 556470 [id number] Claribel Duckworth [id number] Nurse Practitioner [phone] 228521 gabapentin 01/06/2019 03/15/2021 three times a day 30 600 mg tablet as needed 27205 174647 [id number] Claribel Duckworth [id number] Nurse P ractitioner [id number] Latuda by mouth [id number] 10/06/2019 02/13/2021 once a day 30 60 m g tablet 80893 525575 [id number] Claribel Duckworth [id number] Nurse Bryan ctitioner [id number] 130485 Zyprexa Zydis by mouth [id number] 10/18/2020 12/15/2020 at bedtime 30 15 mg tablet,disintegrating as needed 97349 648374 [id number] Claribeljoby Grady tonja [id number] Nurse Practitioner [id number] Social History Social History Element Description Concept Effective Date Smoking Status Unknown if ever smoked [id number] Immunizations No Data in Section Vital Signs No Data in Section Procedures Date Concept Id Description Targeted Site Concept Targeted Site Concept Type 12/01/2020 25095 Extended Individual Psychotherapy - 45 min CPT Patient has no history of implantable de vices Encounters Encounter Start Date End Date Encounter Type Description Diagnosis Di agnosis Desc Location Author First Name Author Last Name Npid Taxonomy Cod e Taxonomy Desc Phone Number Location Addr1 Location Addr2 Location [facility] Location Sta te Location Zip [id number] 12/01/2020 12/01/2020 93526 Extended Individual Psych otherapy - 45 min F31.31 Bipolar Disorder, Current Episode Depressed, Mild Comm [facility] Chris Julieta [phone] [id number] [place] [id number] [address] Plan of Treatment No Data in Section Lab Results No Data in Section Instructions No Data in Section Insurance Providers Insurance Id Policy Effective Date Policy Thru Date Company [employer] [id number] 2016 MEDICARE [id number] 2016 MEDICAID
--- OUTSIDE RECORDS SUMMARY | 2021-01-11 02:38 | CCD ---
Author Author Curtis Duckworth Organization Unknown Address [address] [place] [address] Phone Care Team Providers Care Child Development Consultant Name Role Phone Claribel Duckworth PCP Allergies, Adverse Reactions, Alerts Concept Allergy Name Reaction Severity Onset Date Status Documentation Date Phone Number Npid Taxonomy Code Taxonomy Desc Author Last Name Author Fi rst Name Concept Type 2670 codeine sulfate vomiting 12/30/2014 Active 12/30/2014 3 [id number] Psychiatric/Mental [facility] RX NORM Problem [...] Name Taxonomy Code Taxonomy Desc Phone Number [id number] Cymbalta 08/16/2016 once a day 60 mg capsule,delayed release(DR/EC) 82032 994129 [id number] Claribel Duckworth [id number] 0000X Nurse Practitioner [phone] 652341 quetiapine by mouth [id number] 07/22/2019 at bedtime 100 mg ta blet 66901 250103 [id number] Claribel Duckworth [id number] Nurse Practitioner [phone] 019995 gabapentin 01/06/2019 01/18/2021 three times a day 30 600 mg tablet as needed 17250 199570 [id number] Claribel Duckworth [id number] Nurse Mario bahenatitionvandana [phone] 0368255 Latuda by mouth [id number] 10/06/2019 12/19/2020 once a day 30 60 m g tablet 23647 563646 [id number] Claribel Duckworth [id number] Nurse Bryan ctitionvandana [id number] Social History Social History Element Description Concept Effective Date Smoking Status Unknown if ever smoked [id number] Immunizations No Data in Section Vital Signs No Data in Section Procedures Date Concept Id Description Targeted Site Concept Targeted Site Concept Type 10/18/2020 48557 E/M Level 3 - Established Patient CPT Patient has no history of implantable de vices Encounters Encounter Start Date End Date Encounter Type Description Diagnosis Di agnosis Desc Location Author First Name Author Last Name Npid Taxonomy Cod e Taxonomy Desc Phone Number Location Addr1 Location Addr2 Location City Location [place] Location Zip [id number] 10/18/2020 10/18/2020 81485 E/M Level 3 - Established [place] rosendo F31.31 Bipolar Disorder, Current Episode Depressed, Mild Community [facility] Gucci Chavezia [phone] [id number] Nurse Practitioner [phone] [phone] [address] Plan of Treatment No Data in Section Lab Results No Data in Section Instructions No Data in Section Functional Cognitive Status No Data in Section Insurance Providers Insurance Id Policy Effective Date Policy Thru Date Company [employer] [id number] 2016 MEDICARE [id number] 2016 MEDICAID
--- OUTSIDE RECORDS SUMMARY | 2021-01-11 02:38 | CCD ---
Author Author Curtis Duckworth Organization Unknown Address [address] [address] Phone Care Team Providers Care Apprentice Plumber Name Role Phone Claribel Duckworth PCP Allergies, Adverse Reactions, Alerts Concept Allergy Name Reaction Severity Onset Date Status Documentation Date Phone Number Npid Taxonomy Code Taxonomy Desc Author Last Name Author Fi rst Name Concept Type 2670 codeine sulfate vomiting 12/30/2014 Active 12/30/2014 3 [id number] Psychiatric[facility]ental [facility] RX NORM Problem [...] Name Taxonomy Code Taxonomy Desc Phone Number [id number] Cymbalta 08/16/2016 once a day 60 mg capsule,delayed release(DR/EC) 63597 052466 [id number] Claribel Duckworth [id number] 0000X Nurse Practitioner [phone] 311002 quetiapine by mouth [id number] 07/22/2019 at bedtime 100 mg ta blet 71010 162498 [phone] Claribel Duckworth [id number] Nurse Practitioner [id number] Zyprexa Zydis by mouth [id number] 10/18/2020 12/15/2020 at bedtime 30 15 mg tablet,disintegrating as needed 42108 572426 [id number] Claribel evangelista [id number] Nurse Practitioner [id number] 3117988 Latuda by mouth [id number] 10/06/2019 02/13/2021 once a day 30 60 m g tablet 21823 377986 [id number] Claribel Duckworth [id number] Nurse Pra ctitioner [id number] 229247 gabapentin 01/06/2019 03/15/2021 three times a day 30 600 mg tablet as needed 37035 396776 [id number] Claribel Duckworth [id number] Nurse P ractitioner [id number] Social History Social History Element Description Concept Effective Date Smoking Status Unknown if ever smoked [id number] Immunizations No Data in Section Vital Signs No Data in Section Procedures Date Concept Id Description Targeted Site Concept Targeted Site Concept Type 12/13/2020 19940 E/M Level 3 - Established Patient CPT Patient has no history of implantable de vices Encounters Encounter Start Date End Date Encounter Type Description Diagnosis Di agnosis Desc Location Author First Name Author Last Name Npid Taxonomy Cod e Taxonomy Desc Phone Number Location Addr1 Location Addr2 Location City Location [place] Location Zip [id number] 12/13/2020 12/13/2020 16804 E/M Level 3 - Established [place] rosendo F31.31 Bipolar Disorder, Current Episode Depressed, Mild Community [facility] Gucci Claribel [phone] [id number] Nurse Practitioner [phone] [address] Plan of Treatment No Data in Section Lab Results No Data in Section Instructions No Data in Section Functional Cognitive Status No Data in Section Insurance Providers Insurance Id Policy Effective Date Policy Thru Date Company N hermila [id number] 2016 MEDICARE [id number] 2016 MEDICAID
--- OUTSIDE RECORDS SUMMARY | 2021-01-11 02:39 | CCD ---
Author Author Curtis Perez Organization Unknown Address [address] [address] Phone Care Team Providers Care Fur Buyer Name Role Phone ChrisGopal rodrigueza PCP Allergies, Adverse Reactions, Alerts Concept Allergy Name Reaction Severity Onset Date Status Documentation Date Phone Number Npid Taxonomy Code Taxonomy Desc Author Last Name Author Fi rst Name Concept Type 2670 codeine sulfate vomiting 12/30/2014 Active 12/30/2014 3 [id number] Psychiatric/Mental [facility] RX NORM Problem [...] Name Taxonomy Code Taxonomy Desc Phone Number [id number] Cymbalta 08/16/2016 once a day 60 mg capsule,delayed release(DR/EC) 58168 166472 [id number] Claribel Gucci [id number] 0000X Nurse Practitioner [phone] 054617 gabapentin 01/06/2019 01/18/2021 three times a day 30 600 mg tablet as needed 36261 258307 [id number] Claribel Gucci [id number] Nurse P landener [phone] [id number] Latuda by mouth [id number] 10/06/2019 12/19/2020 once a day 30 60 m g tablet 82059 366850 [id number] Claribel Duckworth [id number] Nurse Pra ctitioner [phone] 016732 quetiapine by mouth [id number] 07/22/2019 at bedtime 100 mg ta blet 21436 763801 [id number] Claribel Duckworth [id number] Nurse Practitioner [id number] Social History Social History Element Description Concept Effective Date Smoking Status Unknown if ever smoked [id number] Immunizations No Data in Section Vital Signs No Data in Section Procedures Date Concept Id Description Targeted Site Concept Targeted Site Concept Type 10/12/2020 43667 Extended Individual Psychotherapy - 45 min CPT Patient has no history of implantable de vices Encounters Encounter Start Date End Date Encounter Type Description Diagnosis Di agnosis Desc Location Author First Name Author Last Name Npid Taxonomy Cod e Taxonomy Desc Phone Number Location Addr1 Location Addr2 Location [facility] Location Sta te Location [facility] [id number] 10/12/2020 10/12/2020 41184 Extended Individual Psych otherapy - 45 min F31.31 Bipolar Disorder, Current Episode Depressed, Mild Comm [facility] Chris Herrona [phone] [id number] Benefit Director [id number] [address] [address] Plan of Treatment No Data in Section Lab Results No Data in Section Instructions No Data in Section Insurance Providers Insurance Id Policy Effective Date Policy Thru Date Company [employer] [id number] 2016 MEDICARE [id number] 2016 MEDICAID
--- OUTSIDE RECORDS SUMMARY | 2021-01-11 02:39 | CCD ---
Author Author [facility] Organization [facility] Address Unknown Phone Unavailable Care Team Providers Care Senior Ui Web Developer Name Role Phone KevinKeeshaMago CDL FLATBED TRUCK DRIVER CDL FLATBED TRUCK DRIVER Unavailable Unavailable Peña Benoit MD Unavailable Unavailable Peña Benoit MD Unavailable Unavailable Peña Benoit MD Unavailable Unavailable Peña Benoit MD Unavailable Unavailable Peña Benoit MD Unavailable Unavailable Peña Benoit MD Unavailable Unavailable Peña Benoit MD Unavailable Unavailable Peña Benoit MD Unavailable Unavailable Peña Benoit MD Unavailable Unavailable Peña Benoit MD Unavailable Unavailable Peña Benoit MD Unavailable Unavailable Peña Benoit MD Unavailable Unavailable Peña Benoit MD Unavailable Unavailable Peña Benoit MD Unavailable Unavailable Peña Benoit MD Unavailable Unavailable Peña Benoit MD Unavailable Unavailable Peña Benoit MD Unavailable Unavailable Peña Benoit MD Unavailable Unavailable Peña Benoit MD Unavailable Unavailable Peña Benoit MD Unavailable Unavailable Peña Benoit MD Unavailable Unavailable Peña Benoit MD Unavailable Unavailable Peña Benoit MD Unavailable Unavailable Peña Benoit MD Unavailable Unavailable Peña Benoit MD Unavailable Unavailable Peña Benoit MD Unavailable Unavailable Peña Benoit MD Unavailable Unavailable Peña Benoit MD Unavailable Unavailable Peña Benoit MD Unavailable Unavailable Peña Benoit MD Unavailable Unavailable Peña Benoit MD Unavailable Unavailable Peña Benoit MD Unavailable Unavailable Peña Benoit MD Unavailable Unavailable Peña Benoit MD Unavailable Unavailable Peña Benoit MD Unavailable Unavailable Peña Benoit MD Unavailable Unavailable Peña Benoit MD Unavailable Unavailable Peña Benoit MD Unavailable Unavailable Peña Benoit MD Unavailable Unavailable Peña Benoit MD Unavailable Unavailable Peña Benoit MD Unavailable Unavailable Peña Benoit MD Unavailable Unavailable Peña Benoit MD Unavailable Unavailable Peña Benoit MD Unavailable Unavailable Peña Benoit MD Unavailable Unavailable Peña Benoit MD Unavailable Unavailable Peña Benoit MD Unavailable Unavailable Peña Benoit MD Unavailable Unavailable Peña Benoit MD Unavailable Unavailable Peña Benoit MD Unavailable Unavailable Peña Benoit MD Unavailable Unavailable Peña Benoit MD Unavailable Unavailable Peña Benoit MD Unavailable Unavailable Peña Benoit MD Unavailable Unavailable Peña Benoit MD Unavailable Unavailable Peña Benoit MD Unavailable Unavailable Peña Benoit MD Unavailable Unavailable Peña Benoit MD Unavailable Unavailable Peña Benoit MD Unavailable Unavailable Peña Benoit MD Unavailable Unavailable Peña Benoit MD Unavailable Unavailable Peña Benoit MD Unavailable Unavailable Peña Benoit MD Unavailable Unavailable Peña Benoit MD Unavailable Unavailable Peña Benoit MD Unavailable Unavailable Peña Benoit MD Unavailable Unavailable Peña Benoit MD Unavailable Unavailable Peña Benoit MD Unavailable Unavailable Peña Benoit MD Unavailable Unavailable Peña Benoit MD Unavailable Unavailable Peña Benoit MD Unavailable Unavailable Peña Benoit MD Unavailable Unavailable Peña Benoit MD Unavailable Unavailable Peña Benoit MD Unavailable Unavailable Peña Benoit MD Unavailable Unavailable Peña Benoit MD Unavailable Unavailable Peña Benoit MD Unavailable Unavailable Peña Benoit MD Unavailable Unavailable Peña Benoit MD Unavailable Unavailable Peña Benoit MD Unavailable Unavailable Peña Benoit MD Unavailable Unavailable Peña Benoit MD Unavailable Unavailable Peña Benoit MD Unavailable Unavailable Peña Benoit MD Unavailable Unavailable Peña Benoit MD Unavailable Unavailable Peña Benoit MD Unavailable Unavailable Peña Benoit MD Unavailable Unavailable Peña Benoit MD Unavailable Unavailable Peña Benoit MD Unavailable Unavailable Peña eBnoit MD Unavailable Unavailable Peña Benoit MD Unavailable Unavailable Peña Benoit MD Unavailable Unavailable Peña Benoit MD Unavailable Unavailable Feola, T Ariadne PA Unavailable Unavailable Feola, T Ariadne PA Unavailable Unavailable Feola, T Ariadne PA Unavailable Unavailable Feola, T Ariadne PA Unavailable Unavailable Feola, T Ariadne PA Unavailable Unavailable Feola, T Ariadne PA Unavailable Unavailable Feola, T Ariadne PA Unavailable Unavailable Feola, T Ariadne PA Unavailable Unavailable Feola, T Ariadne PA Unavailable Unavailable Feola, T Ariadne PA Unavailable Unavailable Feola, T Ariadne PA Unavailable Unavailable Feola, T Ariadne PA Unavailable Unavailable Feola, T Ariadne PA Unavailable Unavailable Feola, T Ariadne PA Unavailable Unavailable Feola, T Ariadne PA Unavailable Unavailable Feola, T Ariadne PA Unavailable Unavailable Feola, T Ariadne PA Unavailable Unavailable Feola, T Ariadne PA Unavailable Unavailable Feola, T Ariadne PA Unavailable Unavailable Feola, T Ariadne PA Unavailable Unavailable Feola, T Ariadne PA Unavailable Unavailable Feola, T Ariadne PA Unavailable Unavailable Feola, T Ariadne PA Unavailable Unavailable Feola, T Ariadne PA Unavailable Unavailable Feola, T Ariadne PA Unavailable Unavailable Feola, T Ariadne PA Unavailable Unavailable Feola, T Ariadne PA Unavailable Unavailable Feola, T Ariadne PA Unavailable Unavailable Feola, T Ariadne PA Unavailable Unavailable Feola, T Ariadne PA Unavailable Unavailable Feola, T Ariadne PA Unavailable Unavailable Feola, T Ariadne PA Unavailable Unavailable Feola, T Ariadne PA Unavailable Unavailable Feola, T Ariadne PA Unavailable Unavailable Feola, T Ariadne PA Unavailable Unavailable Feola, T Ariadne PA Unavailable Unavailable Feola, T Ariadne PA Unavailable Unavailable Feola, T Ariadne PA Unavailable Unavailable Feola, T Ariadne PA Unavailable Unavailable Feola, T Ariadne PA Unavailable Unavailable Feola, T Ariadne PA Unavailable Unavailable Ede Pillai MD Unavailable Unavailable Ede Pillai MD Unavailable Unavailable Ede Pillai MD Unavailable Unavailable Ede Pillai MD Unavailable Unavailable Ede Pillai MD Unavailable Unavailable Ede Pillai MD Unavailable Unavailable WHYTE, G EDWARD RPA Unavailable Unavailable WHYTE, G EDWARD RPA Unavailable Unavailable WHYTE, G EDWARD RPA Unavailable Unavailable WHYTE, G EDWARD RPA Unavailable Unavailable WHYTE, G EDWARD RPA Unavailable Unavailable WHYTE, G EDWARD RPA Unavailable Unavailable WHYTE, G EDWARD RPA Unavailable Unavailable WHYTE, G EDWARD RPA Unavailable Unavailable WHYTE, G EDWARD RPA Unavailable Unavailable WHYTE, G EDWARD RPA Unavailable Unavailable WHYTE, G EDWARD RPA Unavailable Unavailable WHYTE, G EDWARD RPA Unavailable Unavailable WHYTE, G EDWARD RPA Unavailable Unavailable WHYTE, G EDWARD RPA Unavailable Unavailable WHYTE, G EDWARD RPA Unavailable Unavailable WHYTE, G EDWARD RPA Unavailable Unavailable WHYTE, G EDWARD RPA Unavailable Unavailable WHYTE, G EDWARD RPA Unavailable Unavailable WHYTE, G EDWARD RPA Unavailable Unavailable WHYTE, G EDWARD RPA Unavailable Unavailable WHYTE, G EDWARD RPA Unavailable Unavailable WHYTE, G EDWARD RPA Unavailable Unavailable WHYTE, G EDWARD RPA Unavailable Unavailable WHYTE, G EDWARD RPA Unavailable Unavailable WHYTE, G EDWARD RPA Unavailable Unavailable WHYTE, G EDWARD RPA Unavailable Unavailable WHYTE, G EDWARD RPA Unavailable Unavailable WHYTE, G EDWARD RPA Unavailable Unavailable WHYTE, G EDWARD RPA Unavailable Unavailable WHYTE, G EDWARD RPA Unavailable Unavailable WHYTE, G EDWARD RPA Unavailable Unavailable WHYTE, G EDWARD RPA Unavailable Unavailable WHYTE, G EDWARD RPA Unavailable Unavailable WHYTE, G EDWARD RPA Unavailable Unavailable WHYTE, G EDWARD RPA Unavailable Unavailable GUCCI, H MALATHI MEDICAL I D SALES Unavailable Unavailable GUCCI, H MALATHI MEDICAL I D SALES Unavailable Unavailable GUCCI, H MALATHI MEDICAL I D SALES Unavailable Unavailable GUCCI, H MALATHI MEDICAL I D SALES Unavailable Unavailable GUCCI, H MALATHI MEDICAL I D SALES Unavailable Unavailable GUCCI, H MALATHI MEDICAL I D SALES Unavailable Unavailable GUCCI, H MALATHI MEDICAL I D SALES Unavailable Unavailable GUCCI, H MALATHI MEDICAL I D SALES Unavailable Unavailable GUCCI, H MALATHI MEDICAL I D SALES Unavailable Unavailable Oscar LESTER MD Unavailable Unavailable Oscar LESTER MD Unavailable Unavailable Oscar LESTER MD Unavailable Unavailable Oscar LESTER MD Unavailable Unavailable Oscar LESTER MD Unavailable Unavailable Oscar LESTER MD Unavailable Unavailable Oscar LESTER MD Unavailable Unavailable Oscar LESTER MD Unavailable Unavailable Oscar LESTER MD Unavailable Unavailable Julieta Perez Unavailable Kevin, A Mago CDL FLATBED TRUCK DRIVER Unavailable Unavailable Kevin, A Mago CDL FLATBED TRUCK DRIVER Unavailable Unavailable Kevin, A Mago CDL FLATBED TRUCK DRIVER Unavailable Unavailable Kevin, A Mago CDL FLATBED TRUCK DRIVER Unavailable Unavailable Kevin, A Mago CDL FLATBED TRUCK DRIVER Unavailable Unavailable Kevin, A Mago CDL FLATBED TRUCK DRIVER Unavailable Unavailable Kevin, A Mago CDL FLATBED TRUCK DRIVER Unavailable Unavailable Kevin, A Mago CDL FLATBED TRUCK DRIVER Unavailable Unavailable Kevin, A Mago CDL FLATBED TRUCK DRIVER Unavailable Unavailable Kevin, A Mago CDL FLATBED TRUCK DRIVER Unavailable Unavailable Kevin, A Mago CDL FLATBED TRUCK DRIVER Unavailable Unavailable Kevin, A Mago CDL FLATBED TRUCK DRIVER Unavailable Unavailable Kevin, A Mago CDL FLATBED TRUCK DRIVER Unavailable Unavailable Kevin, A Mago CDL FLATBED TRUCK DRIVER Unavailable Unavailable Kevin, A Mago CDL FLATBED TRUCK DRIVER Unavailable Unavailable Kevin, A Mago CDL FLATBED TRUCK DRIVER Unavailable Unavailable Kevin, A Mago CDL FLATBED TRUCK DRIVER Unavailable Unavailable Kevin, A Mago CDL FLATBED TRUCK DRIVER Unavailable Unavailable Kevin, A Mago CDL FLATBED TRUCK DRIVER Unavailable Unavailable Kevin, A Mago CDL FLATBED TRUCK DRIVER Unavailable Unavailable Kevin, A Mago CDL FLATBED TRUCK DRIVER Unavailable Unavailable Kevin, A Mago CDL FLATBED TRUCK DRIVER Unavailable Unavailable Kevin, A Mago CDL FLATBED TRUCK DRIVER Unavailable Unavailable Kevin, A Mago CDL FLATBED TRUCK DRIVER Unavailable Unavailable Kevin, A Mago CDL FLATBED TRUCK DRIVER Unavailable Unavailable Kevin, A Mago CDL FLATBED TRUCK DRIVER Unavailable Unavailable Kevin, A Mago CDL FLATBED TRUCK DRIVER Unavailable Unavailable Kevin, A Mago CDL FLATBED TRUCK DRIVER Unavailable Unavailable Kevin, A Mago CDL FLATBED TRUCK DRIVER Unavailable Unavailable Kevin, A Mago CDL FLATBED TRUCK DRIVER Unavailable Unavailable Kevin, A Mago CDL FLATBED TRUCK DRIVER Unavailable Unavailable Aaron Malgorzata Unavailable Re-disclosure Warning The records that you are about to access may contain information from federally-assisted alcohol or drug abuse programs. If such information is present, then the following federally mandated warning applies: This information has been disclosed to you from records protected by federal confidentiality rules (42 CFR part 2). The federal rules prohibit you from making any further disclosure of this information unless further disclosure is expressly permitted by the written consent of the person to whom it pertains or as otherwise permitted by 42 CFR part 2. A general authorization for the release of medical or other information is NOT sufficient for this purpose. The Federal rules restrict any use of the information to criminally investigate or prosecute any alcohol or drug abuse patient.The records that you are about to access may contain highly sensitive health information, the redisclosure of which is protected by Article 27-F of the [place] Public Health law. If you continue you may have access to information: Regarding HIV / AIDS; Provided by facilities licensed or operated by the [facility] Office of Mental Health; or Provided by the [facility] Office for People With Developmental Disabilities. If such information is present, then the following [facility] mandated warning applies: This information has been disclosed to you from confidential records which are protected by state law. State law prohibits you from making any further disclosure of this information without the specific written consent of the person to whom it pertains, or as otherwise permitted by law. Any unauthorized further disclosure in violation of state law may result in a fine or skilled nursing sentence or both. A general authorization for the release of medical or other information is NOT sufficient authorization for further disc losure. Allergies and Adverse Reactions Type Description Substance Reaction Status Data Source(s ) Propensity to adverse reactions to substance codeine sulfate Codein e vomiting Active [facility] ([facility]) Encounters Encounter Providers Location Date Indications Data Source(s ) Outpatient Attender: MALATHI BRUSH NP [facility] 12/13/2020 03:30:00 AM EDT - 12/13/2020 03:30:00 AM EDT [facility] ([facility]) Attender: MALATHI BRUSH NP 12/13/2020 12:00:00 AM EDT [facility] ([facility]) Extended Individual Psychotherapy - 45 min Attender: Robert ballard Chris [facility] 12/01/2020 03:00:00 AM EDT - 12/01/2020 03:00:00 AM EDT [facility] ([facility]) Attender: Julieta Perez 12/01/2020 12:00:00 AM EDT [facility] ([facility]) Extended Individual Psychotherapy - 45 min Attender: Robert ballard [facility] 10/26/2020 03:00:00 AM EDT - 10/26/2020 03:00:00 AM EDT [facility] ([facility]) Attender: Julieta Perez 10/26/2020 12:00:00 AM EDT [facility] ([facility]) Outpatient Attender: MALATHI BRUSH NP [facility] 10/18/2020 01:30:00 AM EDT - 10/18/2020 01:30:00 AM EDT [facility] ([facility]) Attender: MALATHI BRUSH NP 10/18/2020 12:00:00 AM EDT [facility] ([facility]) Attender: Julieta Perez 10/14/2020 12:00:00 AM EDT [facility] ([facility]) Extended Individual Psychotherapy - 45 min Attender: Robert Perez [facility] 10/12/2020 03:00:00 AM EDT - 10/12/2020 03:00:00 AM EDT [facility] ([facility]) Outpatient Attender: BRIAN WHYTE RPA 09/29 04:34:42 PM EDT - 09/29/2020 05:29:37 PM EDT [facility] ([facility] ) Outpatient Attender: MALATHI BRUSH NP [facility] 09/20/2020 01:30:00 AM EDT - 09/20/2020 01:30:00 AM EDT [facility] ([facility]) Attender: MALATHI BRUSH NP 09/20/2020 12:00:00 AM EDT [facility] ([facility]) Brief Individual Psychotherapy - 20 min Attender: Malgorzata villa [facility] 09/16/2020 11:30:00 AM EDT - 09/16/2020 11:30:00 AM EDT [facility] ([facility]) Attender: Malgorzata Walker 09/16/2020 12:00:00 AM E DT [facility] ([facility]) Extended Individual Psychotherapy - 45 min Attender: Robert Perez [facility] 08/17/2020 03:00:00 AM EDT - 08/17/2020 03:00:00 AM EDT [facility] ([facility]) Attender: Julieta Perez 08/17/2020 12:00:00 AM EDT [facility] ([facility]) Outpatient Attender: Ariadne OLMSTEAD 06:29:15 PM EDT - 08/04/2020 07:30:31 PM EDT [facility] ([facility] ) Extended Individual Psychotherapy - 45 min Attender: Robert Perez [facility] 08/03/2020 03:00:00 AM EDT - 08/03/2020 03:00:00 AM EDT [facility] ([facility]) Attender: Julieta Perez 08/03/2020 12:00:00 AM EDT [facility] ([facility]) Attender: Julieta Perez 07/01/2020 12:00:00 AM EDT [facility] ([facility]) Extended Individual Psychotherapy - 45 min Attender: [facility]ard [facility] 06/29/2020 02:00:00 AM EDT - 06/29/2020 02:00:00 AM EDT [facility] ([facility]) Attender: Julieta Perez 06/10/2020 12:00:00 AM EDT [facility] ([facility]) Extended Individual Psychotherapy - 45 min Attender: Robert ballard Chris [facility] 06/09/2020 04:00:00 AM EDT - 06/09/2020 04:00:00 AM EDT [facility] ([facility]) Outpatient Attender: MALATHI BRUSH NP [facility] Frank bush 05/17/2020 01:00:00 AM EST - 05/17/2020 01:00:00 AM EST [facility] ([facility]) Attender: MALATHI BRUSH NP 05/17/2020 12:00:00 AM EST [facility] ([facility]) Extended Individual Psychotherapy - 45 min Attender: Robert ballard Chris [facility] 05/11/2020 04:00:00 AM EST - 05/11/2020 04:00:00 AM EST [facility] ([facility]) Attender: Julieta Perez 05/11/2020 12:00:00 AM EST [facility] ([facility]) Attender: Julieta Perez 04/28/2020 12:00:00 AM EST [facility] ([facility]) Extended Individual Psychotherapy - 45 min Attender: Robert ballard Chris [facility] 04/27/2020 04:00:00 AM EST - 04/27/2020 04:00:00 AM EST [facility] ([facility]) Outpatient Attender: MALATHI BRUSH NP [facility] Frank bush 04/05/2020 02:30:00 AM EST - 04/05/2020 02:30:00 AM EST [facility] ([facility]) Attender: MALATHI BRUSH NP 04/05/2020 12:00:00 AM EST [facility] ([facility]) Extended Individual Psychotherapy - 45 min Attender: Robert ballard Chris [facility] 03/30/2020 04:00:00 AM EST - 03/30/2020 04:00:00 AM EST [facility] ([facility]) Attender: Julieta Perez 03/30/2020 12:00:00 AM EST [facility] ([facility]) Extended Individual Psychotherapy - 45 min Attender: Robert ballard Chris [facility] 02/24/2020 03:00:00 AM EST - 02/24/2020 03:00:00 AM EST [facility] ([facility]) Attender: Julieta Perez 02/24/2020 12:00:00 AM EST [facility] ([facility]) Outpatient Attender: MALATHI BRUSH NP [facility] Frank bush 02/08/2020 02:00:00 AM EST - 02/08/2020 02:00:00 AM EST [facility] ([facility]) Attender: MALATHI BRUSH NP 02/08/2020 12:00:00 AM EST [facility] ([facility]) Emergency Attender: Ede Pillai MDConsultant: César Benoit MD 01/17/2020 01:49:00 AM EST - 01/17/2020 03:08:00 AM EST [facility] Patient discharged. Attender: Julieta Perez 01/15/2020 12:00:00 AM EDT [facility] ([facility]) Extended Individual Psychotherapy - 45 min Attender: Robert ballard Chris [facility] 01/14/2020 03:00:00 AM EDT - 01/14/2020 03:00:00 AM EDT [facility] ([facility]) [id number]"Psychotherapy [facility] 05:00:00 AM EDT - 12/23/2019 05:00:00 AM EDT [facility] ([facility]) Attender: Julieta Perez 12/23/2019 12:00:00 AM EDT [facility] ([facility]) Outpatient Attender: TRINO POWELL 12/21/2019 06:32:23 A M EDT [facility] Outpatient Attender: Mago POWELL 12/21/2019 06:3 2:12 AM EDT [facility] Outpatient Attender: TRINO POWELL 12/16/2019 05:08:01 P M EDT [facility] Outpatient Attender: TRINO POWELL 12/16/2019 03:34:00 P M EDT [facility] Outpatient Attender: TRINO POWELL 12/11/2019 06:02:01 P M EDT [facility] Attender: Julieta Perez 12/11/2019 12:00:00 AM EDT [facility] ([facility]) TEMPMHCTelemed 30" Psychotherapy Attender: Julieta Chris [facility] 12/10/2019 06:30:00 AM EDT - 12/10/2019 06:30:00 AM EDT [facility] ([facility]) Outpatient Attender: Mago JAMESON 12/09/2019 01:5 7:01 PM EDT [facility] Emergency Attender: CHRIS LESTER MDConsultant: César duong MD 12/05/2019 05:02:00 AM EDT - 12/05/2019 06:38:00 AM EDT [facility] Patient discharged. TEMPMHCTelemed 30" Psychotherapy Attender: Julieta Chris [facility] 11/20/2019 03:00:00 AM EDT - 11/20/2019 03:00:00 AM EDT [facility] ([facility]) Attender: Julieta Perez 11/20/2019 12:00:00 AM EDT [facility] ([facility]) Outpatient Attender: TRINO Kevin CDL FLATBED TRUCK DRIVER FP 11/16/2019 12:26:00 P M EDT [facility] Outpatient Attender: Mago Brown CDL FLATBED TRUCK DRIVER [facility] 11/13/2019 09:5 8:03 AM EDT [facility] Functional Status Medications Medication Brand Name Start Date Product Form Dose Route Admi nistrative Instructions Pharmacy Instructions Status Indications Reaction Description Data Source(s) 15 mg 12/14/2020 12:00:00 AM EDT tablet,disintegrating [address] ONE TABLET BY MOUTH AT BEDTIME NEEDED PLACE ONE TABLET BY MOUTH AT BEDTIME NEEDED SOLD: 12/17/2020 [facility] 60 mg 11/17/2020 12:00:00 AM EDT tablet 30 TAKE ONE TABLET BY MOUTH EVERY DAY WITH FOOD (BREAKFAST) TAKE ONE TABLET BY MOUTH EVERY DAY WITH FOOD (BREAKFAST) SOLD: 11/17/2020 [facility] 15 mg 11/17/2020 12:00:00 AM EDT tablet,disintegrating [address] ONE TABLET BY MOUTH AT BEDTIME NEEDED PLACE ONE TABLET BY MOUTH AT BEDTIME NEEDED SOLD: 11/17/2020 [facility] 600 mg 11/17/2020 12:00:00 AM EDT tablet 90 TAKE ONE TABLET BY MOUTH THREE TIMES A DAY NEEDED TAKE ONE TABLET BY MOUTH THREE TIMES A DAY NEEDED S OLD: 11/17/2020 [facility] 600 mg 11/17/2020 12:00:00 AM EDT tablet 90 TAKE ONE TABLET BY MOUTH THREE TIMES A DAY NEEDED TAKE ONE TABLET BY MOUTH THREE TIMES A DAY NEEDED S OLD: 12/17/2020 [facility] 60 mg 11/17/2020 12:00:00 AM EDT capsule,delayed release (DR/EC) 30 TAKE ONE CAPSULE BY MOUTH EVERY DAY TAKE ONE CAPSULE BY MOUTH EVERY DAY SOLD: 11/17/2020 [facility] 60 mg 11/17/2020 12:00:00 AM EDT capsule,delayed release (DR/EC) 30 TAKE ONE CAPSULE BY MOUTH EVERY DAY TAKE ONE CAPSULE BY MOUTH EVERY DAY SOLD: 12/17/2020 [facility] 15 mg 10/19/2020 12:00:00 AM EDT tablet,disintegrating [address] ONE TABLET BY MOUTH AT BEDTIME NEEDED PLACE ONE TABLET BY MOUTH AT BEDTIME NEEDED SOLD: 10/20/2020 [facility] olanzapine 15 MG Disintegrating Oral Tablet [Zyprexa] Zyprex a Zydis 10/18/2020 12:00:00 AM EDT 15 mg by mouth completed <td ID="MedicationRxNorm_5">337890</td><td ID="MedicationMedication_5">Zyprexa Zydis</td><td ID="MedicationRoute_5">by mouth</td><td ID="MedicationRouteConcept_5">H10024</td><td ID="MedicationStartDate_5">10/18/2020</td><td ID="MedicationStopDate_5">12/15/2020</td><td ID="MedicationDosageFrequency_5">at bedtime</td><td ID="MedicationDuration_5">30</td><td ID="MedicationFormulaStrength_5">15 mg</td><td ID="MedicationDosageForm_5">tablet,disintegrating</td><td ID="MedicationDosageFormCode_5"></td><td ID="MedicationDosageDescription_5">as needed</td><td ID="MedicationMedicationId_5">[id number]</td><td ID="MedicationAccount_5">[id number]</td><td ID="MedicationNpid_5">[id number]</td><td ID="MedicationAuthorFirstName_5">Malathi</td><td ID="MedicationAuthorLastName_5">Gucci</td><td ID="MedicationTaxonomyCode_5">[id number]</td><td ID="MedicationTaxonomyDesc_5"> Nurse Practitioner</td><td ID="MedicationPhoneNumber_5">[phone]</td> [facility] ([facility]) olanzapine 15 MG Disintegrating Oral Tablet [Zyprexa] Zyprex a Zydis 10/18/2020 12:00:00 AM EDT 15 mg by mouth completed <td ID="MedicationRxNorm_3">[id number]</td><td ID="MedicationMedication_3">Zyprexa Zydis</td><td ID="MedicationRoute_3">by mouth</td><td ID="MedicationRouteConcept_3">[id number]</td><td ID="MedicationStartDate_3">10/18/2020</td><td ID="MedicationStopDate_3">12/15/2020</td><td ID="MedicationDosageFrequency_3">at bedtime</td><td ID="MedicationDuration_3">30</td><td ID="MedicationFormulaStrength_3">15 mg</td><td ID="MedicationDosageForm_3">tablet,disintegrating</td><td ID="MedicationDosageFormCode_3"></td><td ID="MedicationDosageDescription_3">as needed</td><td ID="MedicationMedicationId_3">[id number]</td><td ID="MedicationAccount_3">[id number]</td><td ID="MedicationNpid_3">[id number]</td><td ID="MedicationAuthorFirstName_3">Malathi</td><td ID="MedicationAuthorLastName_3">Gucci</td><td ID="MedicationTaxonomyCode_3">[id number]</td><td ID="MedicationTaxonomyDesc_3"> Nurse Practitioner</td><td ID="MedicationPhoneNumber_3">[phone]</td> [facility] ([facility]) 60 mg 10/08/2020 12:00:00 AM EDT tablet 30 TAKE ONE TABLET BY MOUTH EVERY DAY WITH BREAKFAST TAKE ONE TABLET BY MOUTH EVERY DAY WITH BREAKFAST SOLD : 10/19/2020 [facility] quetiapine 100 MG Oral Tablet QUETIAPINE FUMARATE 10/08/2020 12: 00:00 AM EDT tablet 30 TAKE ONE TABLET BY MOUTH AT BEDT DAX TAKE ONE TABLET BY MOUTH AT BEDTIME SOLD: 10/19/2020 [facility] 600 mg 10/08/2020 12:00:00 AM EDT tablet 90 TAKE ONE TABLET BY MOUTH THREE TIMES A DAY NEEDED TAKE ONE TABLET BY MOUTH THREE TIMES A DAY NEEDED S OLD: 10/19/2020 [facility] 60 mg 10/08/2020 12:00:00 AM EDT capsule,delayed release (DR/EC) 30 TAKE ONE CAPSULE BY MOUTH EVERY DAY TAKE ONE CAPSULE BY MOUTH EVERY DAY SOLD: 10/19/2020 [facility] 600 mg 07/28/2020 12:00:00 AM EDT tablet 90 TAKE ONE TABLET BY MOUTH THREE TIMES A DAY NEEDED TAKE ONE TABLET BY MOUTH THREE TIMES A DAY NEEDED S OLD: 08/24/2020 [facility] 600 mg 07/28/2020 12:00:00 AM EDT tablet 90 TAKE ONE TABLET BY MOUTH THREE TIMES A DAY NEEDED TAKE ONE TABLET BY MOUTH THREE TIMES A DAY NEEDED S OLD: 09/22/2020 [facility] 600 mg 07/28/2020 12:00:00 AM EDT tablet 90 TAKE ONE TABLET BY MOUTH THREE TIMES A DAY NEEDED TAKE ONE TABLET BY MOUTH THREE TIMES A DAY NEEDED S OLD: 07/30/2020 [facility] 500 mg 05/30/2020 12:00:00 AM EDT tablet 20 TAKE ONE TABLET BY MOUTH EVERY 12 HOURS FOR 10 DAYS TAKE ONE TABLET BY MOUTH EVERY 12 HOURS FOR 10 DAYS SO LD: 05/30/2020 [facility] quetiapine 100 MG Oral Tablet QUETIAPINE FUMARATE 04/06/2020 12: 00:00 AM EST tablet 30 TAKE ONE TABLET BY MOUTH AT BEDT DAX TAKE ONE TABLET BY MOUTH AT BEDTIME SOLD: 06/08/2020 [facility] 600 mg 04/06/2020 12:00:00 AM EST tablet 90 TAKE ONE TABLET BY MOUTH THREE TIMES A DAY NEEDED TAKE ONE TABLET BY MOUTH THREE TIMES A DAY NEEDED S OLD: 04/19/2020 [facility] 60 mg 04/06/2020 12:00:00 AM EST tablet 30 TAKE ONE TABLET BY MOUTH EVERY DAY WITH FOOD BREAKFAST TAKE ONE TABLET BY MOUTH EVERY DAY WITH FOOD BREAKFAST SOLD: 09/22/2020 [facility] 60 mg 04/06/2020 12:00:00 AM EST capsule,delayed release (DR/EC) 30 TAKE ONE CAPSULE BY MOUTH EVERY DAY TAKE ONE CAPSULE BY MOUTH EVERY DAY SOLD: 04/19/2020 [facility] 60 mg 04/06/2020 12:00:00 AM EST capsule,delayed release (DR/EC) 30 TAKE ONE CAPSULE BY MOUTH EVERY DAY TAKE ONE CAPSULE BY MOUTH EVERY DAY SOLD: 06/08/2020 [facility] quetiapine 100 MG Oral Tablet QUETIAPINE FUMARATE 04/06/2020 12: 00:00 AM EST tablet 30 TAKE ONE TABLET BY MOUTH AT BEDT DAX TAKE ONE TABLET BY MOUTH AT BEDTIME SOLD: 09/22/2020 [facility] 600 mg 04/06/2020 12:00:00 AM EST tablet 90 TAKE ONE TABLET BY MOUTH THREE TIMES A DAY NEEDED TAKE ONE TABLET BY MOUTH THREE TIMES A DAY NEEDED S OLD: 06/08/2020 [facility] 600 mg 04/06/2020 12:00:00 AM EST tablet 90 TAKE ONE TABLET BY MOUTH THREE TIMES A DAY NEEDED TAKE ONE TABLET BY MOUTH THREE TIMES A DAY NEEDED S OLD: 07/06/2020 [facility] 60 mg 04/06/2020 12:00:00 AM EST tablet 30 TAKE ONE TABLET BY MOUTH EVERY DAY WITH FOOD BREAKFAST TAKE ONE TABLET BY MOUTH EVERY DAY WITH FOOD BREAKFAST SOLD: 06/08/2020 [facility] 60 mg 04/06/2020 12:00:00 AM EST tablet 30 TAKE ONE TABLET BY MOUTH EVERY DAY WITH FOOD BREAKFAST TAKE ONE TABLET BY MOUTH EVERY DAY WITH FOOD BREAKFAST SOLD: 04/19/2020 [facility] 60 mg 04/06/2020 12:00:00 AM EST capsule,delayed release (DR/EC) 30 TAKE ONE CAPSULE BY MOUTH EVERY DAY TAKE ONE CAPSULE BY MOUTH EVERY DAY SOLD: 09/22/2020 [facility] quetiapine 100 MG Oral Tablet QUETIAPINE FUMARATE 04/06/2020 12: 00:00 AM EST tablet 30 TAKE ONE TABLET BY MOUTH AT BEDT DAX TAKE ONE TABLET BY MOUTH AT BEDTIME SOLD: 04/19/2020 [facility] 600 mg 04/06/2020 12:00:00 AM EST tablet 90 TAKE ONE TABLET BY MOUTH THREE TIMES A DAY NEEDED TAKE ONE TABLET BY MOUTH THREE TIMES A DAY NEEDED S OLD: 05/06/2020 [facility] 800 mg 03/29/2020 12:00:00 AM EST tablet 15 TAKE ONE TABLET BY MOUTH THREE TIMES A DAY FOR FIVE DAYS TAKE ONE TABLET BY MOUTH THREE TIMES A D AY FOR FIVE DAYS SOLD: 03/29/2020 [facility] Cyclobenzaprine hydrochloride 10 MG Oral Tablet CYCLOBENZAPR INE HCL 03/29/2020 12:00:00 AM EST tablet 10 TAKE ONE TABLET BY MOUTH AT BEDTIME FOR 10 DAYS TAKE ONE TABLET BY MOUTH AT BEDTIME FOR 10 DAYS SOLD: 03/29/2020 [facility] 4 % 03/29/2020 12:00:00 AM EST adhesive patch,medicate d 10 APPLY 1 PATCH ONCE DAILY 12 HOURS ON 12 HOURS OFF APPLY 1 PATCH ONCE DAILY 12 HOURS ON 12 HOURS OFF SOLD: 03/29/2020 [facility] 0.3 mg/0.3 mL 03/16/2020 12:00:00 AM EST auto-injector 2 USE DIRECTED FOR BEE STINGS USE DIRECTED FOR BEE STINGS SOLD: 03/16/2020 [facility] 60 mg 01/12/2020 12:00:00 AM EDT tablet 30 TAKE ONE TABLET BY MOUTH EVERY DAY WITH BREAKFAST TAKE ONE TABLET BY MOUTH EVERY DAY WITH BREAKFAST SOLD : 03/16/2020 [facility] 60 mg 01/12/2020 12:00:00 AM EDT tablet 30 TAKE ONE TABLET BY MOUTH EVERY DAY WITH BREAKFAST TAKE ONE TABLET BY MOUTH EVERY DAY WITH BREAKFAST SOLD : 01/13/2020 [facility] 60 mg 01/12/2020 12:00:00 AM EDT capsule,delayed release (DR/EC) 30 TAKE ONE CAPSULE BY MOUTH EVERY DAY TAKE ONE CAPSULE BY MOUTH EVERY DAY SOLD: 03/16/2020 [facility] 600 mg 01/12/2020 12:00:00 AM EDT tablet 90 TAKE ONE TABLET BY MOUTH THREE TIMES A DAY NEEDED TAKE ONE TABLET BY MOUTH THREE TIMES A DAY NEEDED S OLD: 02/08/2020 [facility] 60 mg 01/12/2020 12:00:00 AM EDT capsule,delayed release (DR/EC) 30 TAKE ONE CAPSULE BY MOUTH EVERY DAY TAKE ONE CAPSULE BY MOUTH EVERY DAY SOLD: 01/13/2020 [facility] quetiapine 100 MG Oral Tablet QUETIAPINE FUMARATE 01/12/2020 12: 00:00 AM EDT tablet 30 TAKE ONE TABLET BY MOUTH AT BEDT DAX TAKE ONE TABLET BY MOUTH AT BEDTIME SOLD: 01/13/2020 [facility] quetiapine 100 MG Oral Tablet QUETIAPINE FUMARATE 01/12/2020 12: 00:00 AM EDT tablet 30 TAKE ONE TABLET BY MOUTH AT BEDT DAX TAKE ONE TABLET BY MOUTH AT BEDTIME SOLD: 03/16/2020 [facility] quetiapine 100 MG Oral Tablet QUETIAPINE FUMARATE 01/12/2020 12: 00:00 AM EDT tablet 30 TAKE ONE TABLET BY MOUTH AT BEDT DAX TAKE ONE TABLET BY MOUTH AT BEDTIME SOLD: 02/08/2020 [facility] 600 mg 01/12/2020 12:00:00 AM EDT tablet 90 TAKE ONE TABLET BY MOUTH THREE TIMES A DAY NEEDED TAKE ONE TABLET BY MOUTH THREE TIMES A DAY NEEDED S OLD: 01/13/2020 [facility] 60 mg 01/12/2020 12:00:00 AM EDT capsule,delayed release (DR/EC) 30 TAKE ONE CAPSULE BY MOUTH EVERY DAY TAKE ONE CAPSULE BY MOUTH EVERY DAY SOLD: 02/08/2020 [facility] 600 mg 01/12/2020 12:00:00 AM EDT tablet 90 TAKE ONE TABLET BY MOUTH THREE TIMES A DAY NEEDED TAKE ONE TABLET BY MOUTH THREE TIMES A DAY NEEDED S OLD: 03/16/2020 [facility] meloxicam 7.5 MG Oral Tablet MELOXICAM 01/07/2020 12:00:00 AM EDT tabl et 20 TAKE ONE TABLET BY MOUTH EVERY DAY FOR 20 DAYS TAKE ONE TABLET BY MOUTH EVERY DAY FOR 20 DAYS SOLD: 01/07/2020 [facility] Cephalexin 500 MG Oral Capsule CEPHALEXIN 12/16/2019 12:00:00 AM EDT capsule 14 TAKE ONE CAPSULE BY MOUTH TWICE A DAY FOR 7 DAYS TAKE ONE CAPSULE BY MOUTH TWICE A DAY FOR 7 DAYS SOLD: 12/16/2019 [facility] 800 mg 12/16/2019 12:00:00 AM EDT tablet 60 TAKE ONE TABLET BY MOUTH TWICE A DAY NEEDED TAKE ONE TABLET BY MOUTH TWICE A DAY NEEDED SOLD: [facility] 800 mg 12/16/2019 12:00:00 AM EDT tablet 60 TAKE ONE TABLET BY MOUTH TWICE A DAY NEEDED TAKE ONE TABLET BY MOUTH TWICE A DAY NEEDED SOLD: [facility] 800 mg 12/05/2019 12:00:00 AM EDT tablet 30 TAKE ONE TABLET BY MOUTH EVERY 8 HOURS NEEDED FOR PAIN TAKE ONE TABLET BY MOUTH EVERY 8 HOURS A S NEEDED FOR PAIN SOLD: 12/05/2019 [facility] Cyclobenzaprine hydrochloride 5 MG Oral Tablet CYCLOBENZAPRI NE HCL 12/05/2019 12:00:00 AM EDT tablet 21 TAKE ONE TABLET BY MOUTH EVERY 8 HOURS NEEDED FOR MUSCLE SPASM/LOW BACK PAIN TAKE ONE TABLET BY MOUTH EVERY 8 HOURS A S NEEDED FOR MUSCLE SPASM/LOW BACK PAIN SOLD: 12/05/2019 [facility] 4 mg 12/05/2019 12:00:00 AM EDT tablets,dose pack 21 USE DIRECTED PER PACKAGE INSTRUCTIONS USE DIRECTED PER PACKAGE INSTRUCTIONS SOLD: 12/05/2019 [facility] 4 % 11/18/2019 12:00:00 AM EDT adhesive patch,medicate d 10 APPLY ONE TOPICALLY TO THE SKIN DIRECTED, 12 HOURS ON AND THEN 12 HOURS OFF APPLY ONE TOPICALLY TO THE SKIN DIRECTED, 12 HOURS ON AND THEN 12 HOURS OFF SOLD: 11/18/2019 [facility] quetiapine 100 MG Oral Tablet QUETIAPINE FUMARATE 11/04/2019 12: 00:00 AM EDT tablet 30 TAKE ONE TABLET BY MOUTH EVERY D AY AT BEDTIME TAKE ONE TABLET BY MOUTH EVERY DAY AT BEDTIME SOLD: 11/11/2019 [facility] 60 mg 11/04/2019 12:00:00 AM EDT tablet 30 TAKE ONE TABLET BY MOUTH EVERY DAY WITH FOOD (BREAKFAST) TAKE ONE TABLET BY MOUTH EVERY DAY WITH FOOD (BREAKFAST) SOLD: 11/11/2019 [facility] 600 mg 10/16/2019 12:00:00 AM EDT tablet 90 TAKE ONE TABLET BY MOUTH THREE TIMES A DAY NEEDED TAKE ONE TABLET BY MOUTH THREE TIMES A DAY NEEDED S OLD: 12/15/2019 [facility] 600 mg 10/16/2019 12:00:00 AM EDT tablet 90 TAKE ONE TABLET BY MOUTH THREE TIMES A DAY NEEDED TAKE ONE TABLET BY MOUTH THREE TIMES A DAY NEEDED S OLD: 11/11/2019 [facility] Lurasidone Hydrochloride 60 MG Oral Tablet [Latuda] Latuda 10/06/2019 12:00:00 AM EDT 60 mg by mouth completed <td ID="MedicationRxNorm_2">[id number]</td><td ID="MedicationMedication_2">Latuda</td><td ID="MedicationRoute_2">by mouth</td><td ID="MedicationRouteConcept_2">W49543</td><td ID="MedicationStartDate_2">10/06/2019</td><td ID="MedicationStopDate_2">10/17/2020</td><td ID="MedicationDosageFrequency_2">once a day</td><td ID="MedicationDuration_2">30</td><td ID="MedicationFormulaStrength_2">60 mg</td><td ID="MedicationDosageForm_2">tablet</td><td ID="MedicationDosageFormCode_2"></td><td ID="MedicationDosageDescription_2"></td><td ID="MedicationMedicationId_2">[id number]</td><td ID="MedicationAccount_2">[id number]</td><td ID="MedicationNpid_2">[id number]</td><td ID="MedicationAuthorFirstName_2">Malathi</td><td ID="MedicationAuthorLastName_2">Gucci</td><td ID="MedicationTaxonomyCode_2">[id number]</td><td ID="MedicationTaxonomyDesc_2">Nurse Practitioner</td><td ID="MedicationPhoneNumber_2">[phone]</td> [facility] ([facility]) Lurasidone Hydrochloride 60 MG Oral Tablet [Latuda] Latuda 10/06/2019 12:00:00 AM EDT 60 mg by mouth completed <td ID="MedicationRxNorm_3">[id number]</td><td ID="MedicationMedication_3">Latuda</td><td ID="MedicationRoute_3">by mouth</td><td ID="MedicationRouteConcept_3">I99731</td><td ID="MedicationStartDate_3">10/06/2019</td><td ID="MedicationStopDate_3">12/19/2020</td><td ID="MedicationDosageFrequency_3">once a day</td><td ID="MedicationDuration_3">30</td><td ID="MedicationFormulaStrength_3">60 mg</td><td ID="MedicationDosageForm_3">tablet</td><td ID="MedicationDosageFormCode_3"></td><td ID="MedicationDosageDescription_3"></td><td ID="MedicationMedicationId_3">[id number]</td><td ID="MedicationAccount_3">[id number]</td><td ID="MedicationNpid_3">[id number]</td><td ID="MedicationAuthorFirstName_3">Malathi</td><td ID="MedicationAuthorLastName_3">Gucci</td><td ID="MedicationTaxonomyCode_3">[id number]</td><td ID="MedicationTaxonomyDesc_3">Nurse Practitioner</td><td ID="MedicationPhoneNumber_3">[phone]</td> [facility] ([facility]) Lurasidone Hydrochloride 60 MG Oral Tablet [Latuda] Latuda 10/06/2019 12:00:00 AM EDT 60 mg by mouth completed <td ID="MedicationRxNorm_1">[id number]</td><td ID="MedicationMedication_1">Latuda</td><td ID="MedicationRoute_1">by mouth</td><td ID="MedicationRouteConcept_1">L49047</td><td ID="MedicationStartDate_1">10/06/2019</td><td ID="MedicationStopDate_1">10/17/2020</td><td ID="MedicationDosageFrequency_1">once a day</td><td ID="MedicationDuration_1">30</td><td ID="MedicationFormulaStrength_1">60 mg</td><td ID="MedicationDosageForm_1">tablet</td><td ID="MedicationDosageFormCode_1"></td><td ID="MedicationDosageDescription_1"></td><td ID="MedicationMedicationId_1">[id number]</td><td ID="MedicationAccount_1">[id number]</td><td ID="MedicationNpid_1">[id number]</td><td ID="MedicationAuthorFirstName_1">Malathi</td><td ID="MedicationAuthorLastName_1">Gucci</td><td ID="MedicationTaxonomyCode_1">[id number]</td><td ID="MedicationTaxonomyDesc_1">Nurse Practitioner</td><td ID="MedicationPhoneNumber_1">[phone]</td> [facility] ([facility]) gabapentin 600 MG Oral Tablet gabapentin 01/06/2019 12:00:00 AM EDT 600 mg completed <td ID="Medicat ionRxNorm_4">[id number]</td><td ID="MedicationMedication_4">gabapentin</td><td ID="MedicationRoute_4"></td><td ID="MedicationRouteConcept_4"></td><td ID="MedicationStartDate_4">01/06/2019</td><td ID="MedicationStopDate_4">11/16/2020</td><td ID="MedicationDosageFrequency_4">three times a day</td><td ID="MedicationDuration_4">30</td><td ID="MedicationFormulaStrength_4">600 mg</td><td ID="MedicationDosageForm_4">tablet</td><td ID="MedicationDosageFormCode_4"></td><td ID="MedicationDosageDescription_4">as needed</td><td ID="MedicationMedicationId_4">[id number]</td><td ID="MedicationAccount_4">[id number]</td><td ID="MedicationNpid_4">[id number]</td><td ID="MedicationAuthorFirstName_4">Malathi</td><td ID="MedicationAuthorLastName_4">Gucci</td><td ID="MedicationTaxonomyCode_4">[id number]</td><td ID="MedicationTaxonomyDesc_4">Nurse Practitioner</td><td ID="MedicationPhoneNumber_4">[phone]</td> [facility] Insurance Providers Payer name Policy type / Coverage type Policy ID Covered republican ID Covered republican's relationship to morris Policy [employer] Plan Information MEDICARE A [id number] Self [id number] MEDICARE A [id number] Self [id number] A MEDICARE [id number] SP [id number] A MEDICARE [id number] SP [id number] A MEDICAID [id number] SP [id number] MEDICAID [id number] SP [id number] Medicare P [id number] S [id number] A Medicare P [id number] S [id number] [id number] Medicaid S [id number] S [id number] Medicaid S [id number] S [id number] MEDICARE A [id number] Self [id number] A MEDICAID M [id number] Self [id number] Medicaid S [id number] Medicaid Medicaid [id number] Self [id number] [place] Part B [id number] Self [id number] MEDICARE [id number] SP [id number] EMEDNY [id number] SP [id number] MEDICAID -[id number] EMERGENCY ROOM [id number] 18 [id number] MEDICARE PART A -O/P [id number] 18 [id number] MEDICARE C [id number] S [id number] MEDICAID M [id number] S [id number] MEDICAID [id number] SP [id number] MEDICARE [id number] SP [id number] A MEDICARE C [id number] S [id number] A Medicaid Dental S [id number] Medicare P [id number] S [id number] A MEDICARE C [id number] S [id number] A [facility] MEDICAID [id number] SP [id number] M Problems, Conditions, and Diagnoses Code Display Name Description Problem Type Effective Dates Data Source(s) U54316 Nicotine dependence, cigarettes, uncompl icated Nicotine dependence, cigarettes, uncomplicated Diagnosis 01/17/2020 01:49:00 AM [facility] R197 Diarrhea, unspecified Diarrhea, unspecified Diagnosis 01/17/2020 01:49:00 AM [facility] R1084 Generalized abdominal pain Generalized abdominal pain Diagnosis 01/17/2020 01:49:00 AM [facility] [id number] Other athletic field as the place of occ urrence of the external cause Other athletic field as the place of occurrence of the external cause Diagnosis 12/05/2019 05:02:00 AM [facility] [id number] Other and unspecified overex ertion or strenuous movements or postures, initial encounter Other and unspecified overexertion or st renuous movements or postures, initial encounter Diagnosis 12/05/2019 05:02:[address] 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, lumbar region Other intervertebral disc degeneration, lumbar region Diagnosis 12/05/2019 05:02:00 AM EDT [facility] [id number] Strain of muscle, fascia and tendon of l ower back, initial encounter Strain of muscle, fascia and tendon of lower back, initial encounter Diagnosis 12/05/2019 05:02:00 AM EDT [facility] [id number] Unspecified injury of lower back, initia l encounter Unspecified injury of lower back, initial encounter Diagnosis 12/05/2019 05:02:00 AM EDT [facility] M54.31 Sciatica, right side Sciatica, right side Condition 12/13/2020 12:00:00 AM EDT [facility] ([facility]) F17.219 Nicotine dependence, cigaret romeo, with unspecified nicotine-induced disorders Nicotine dependence, cigarettes, wunsp disorders Condition 12/13/2020 12:00:00 AM EDT [facility] ([facility]) F63.81 Intermittent explosive disorder Intermittent Exp losive Disorder Condition 12/13/2020 12:00:00 AM EDT [facility] ([facility]) F31.31 Bipolar disorder, current episode depres sed, mild Bipolar I Disorder, Current or most recent episode depressed, Mild Condition 021 12:00:00 AM EDT [facility] ([facility]) F10.10 Alcohol abuse, uncomplicated Alcohol Use Disorder, Mil d Condition 02/24/2020 12:00:00 AM EST [facility] ([facility]) 719.46 Pain in left knee Pain in left knee 12/21/2019 01:08:16 AM EDT [facility] V65.8 Person consulting for explanation of exa mination or test findings Person consulting for explanation of examination or test findings 12/16/2019 05:06:34 PM EDT [facility] S80.812A Abrasion, left lower leg, initial encoun ter Abrasion, left lower leg, initial encounter 12/16/2019 05:06:34 PM EDT [facility] Surgeries/Procedures Procedure Description Date Indications Data Source(s) OFFICE OUTPATIENT VISIT 15 MINUTES 12/13 12:00:00 AM EDT - 12/13/2020 12:00:00 AM EDT [facility] ([facility]) OFFICE OUTPATIENT VISIT 15 MINUTES 12/13/2020 12:00:00 AM EDT [facility] ([facility]) Extended Individual Psychotherapy - 45 min 12/01/2020 12:00:00 AM EDT - 12/01/2020 12:00:00 AM EDT [facility] ([facility]) Extended Individual Psychotherapy - 45 min 12:00:00 AM EDT [facility] ([facility]) Extended Individual Psychotherapy - 45 min 10/26/2020 12:00:00 AM EDT - 10/26/2020 12:00:00 AM EDT [facility] ([facility]) Extended Individual Psychotherapy - 45 min 12:00:00 AM EDT [facility] ([facility]) OFFICE OUTPATIENT VISIT 15 MINUTES 10/18 12:00:00 AM EDT - 10/18/2020 12:00:00 AM EDT [facility] ([facility]) OFFICE OUTPATIENT VISIT 15 MINUTES 10/18/2020 12:00:00 AM EDT [facility] ([facility]) Extended Individual Psychotherapy - 45 min 10/14/2020 12:00:00 AM EDT - 10/14/2020 12:00:00 AM EDT [facility] ([facility]) Extended Individual Psychotherapy - 45 min 12:00:00 AM EDT [facility] ([facility]) OFFICE OUTPATIENT VISIT 15 MINUTES 09/20 12:00:00 AM EDT - 09/20/2020 12:00:00 AM EDT [facility] ([facility]) OFFICE OUTPATIENT VISIT 15 MINUTES 09/20/2020 12:00:00 AM EDT [facility] ([facility]) Brief Individual Psychotherapy - 20 min 09/16/2020 12:00:00 AM EDT - 09/16/2020 12:00:00 AM EDT [facility] ([facility]) Brief Individual Psychotherapy - 20 min 09/16/2020 12: 00:00 AM EDT [facility] ([facility]) Extended Individual Psychotherapy - 45 min 08/17/2020 12:00:00 AM EDT - 08/17/2020 12:00:00 AM EDT [facility] ([facility]) Extended Individual Psychotherapy - 45 min 12:00:00 AM EDT [facility] ([facility]) Extended Individual Psychotherapy - 45 min 08/03/2020 12:00:00 AM EDT - 08/03/2020 12:00:00 AM EDT [facility] ([facility]) Extended Individual Psychotherapy - 45 min 12:00:00 AM EDT [facility] ([facility]) Extended Individual Psychotherapy - 45 min 07/01/2020 12:00:00 AM EDT - 07/01/2020 12:00:00 AM EDT [facility] ([facility]) Extended Individual Psychotherapy - 45 min 12:00:00 AM EDT [facility] ([facility]) Extended Individual Psychotherapy - 45 min 06/10/2020 12:00:00 AM EDT - 06/10/2020 12:00:00 AM EDT [facility] ([facility]) Extended Individual Psychotherapy - 45 min 12:00:00 AM EDT [facility] ([facility]) OFFICE OUTPATIENT VISIT 15 MINUTES 05/17 12:00:00 AM EST - 05/17/2020 12:00:00 AM EST [facility] ([facility]) OFFICE OUTPATIENT VISIT 15 MINUTES 05/17/2020 12:00:00 AM EST [facility] ([facility]) Extended Individual Psychotherapy - 45 min 05/11/2020 12:00:00 AM EST - 05/11/2020 12:00:00 AM EST [facility] ([facility]) Extended Individual Psychotherapy - 45 min 12:00:00 AM EST [facility] ([facility]) Extended Individual Psychotherapy - 45 min 04/28/2020 12:00:00 AM EST - 04/28/2020 12:00:00 AM EST [facility] ([facility]) Extended Individual Psychotherapy - 45 min 12:00:00 AM EST [facility] ([facility]) OFFICE OUTPATIENT VISIT 15 MINUTES 04/05 12:00:00 AM EST - 04/05/2020 12:00:00 AM EST [facility] ([facility]) OFFICE OUTPATIENT VISIT 15 MINUTES 04/05/2020 12:00:00 AM EST [facility] ([facility]) Extended Individual Psychotherapy - 45 min 03/30/2020 12:00:00 AM EST - 03/30/2020 12:00:00 AM EST [facility] ([facility]) Extended Individual Psychotherapy - 45 min 12:00:00 AM EST [facility] ([facility]) Extended Individual Psychotherapy - 45 min 02/24/2020 12:00:00 AM EST - 02/24/2020 12:00:00 AM EST [facility] ([facility]) Extended Individual Psychotherapy - 45 min 0 12:00:00 AM EST [facility] ([facility]) MHC Telemed E/M Lvl 3--Est pt 02/08/2020 12:00:00 AM EST - 02/08/2020 12:00:00 AM EST [facility] ([facility]) MHC Telemed E/M Lvl 3--Est pt 02/08/2020 12:00:[address] [facility] ([facility]) Extended Individual Psychotherapy - 45 min 01/15/2020 12:00:00 AM EDT - 01/15/2020 12:00:00 AM EDT [facility] ([facility]) Extended Individual Psychotherapy - 45 min 0 12:00:00 AM EDT [facility] ([facility]) [id number]"Psychotherapy 0 12:00:00 AM EDT - 12/23/2019 12:00:00 AM EDT [facility] ([facility]) [id number]"Psychotherapy 12/23/2019 12:00:00 AM EDT [facility] ([facility]) TEMPMHCTelemed 30" Psychotherapy 020 12:00:00 AM EDT - 12/11/2019 12:00:00 AM EDT [facility] ([facility]) TEMPMHCTelemed 30" Psychotherapy 12/10/2019 12:00:00 A M EDT [facility] ([facility]) TEMPMHCTelemed 30" Psychotherapy 020 12:00:00 AM EDT - 11/20/2019 12:00:00 AM EDT [facility] ([facility]) TEMPMHCTelemed 30" Psychotherapy 11/20/2019 12:00:00 A M EDT [facility] ([facility]) Results ID Date Data Source [id number] 01/17/2020 01:49:00 AM EST [facility] 1 OrderSheet [facility] Emergency Department [address] [place] [address] Phone #: [phone] 01/17/2020 01:49 Patient: BENITA ANGEL Sex: M : 1980 Age: 39yWEIGHT:108.8 kg (S) HEIGHT:71 inches (S) BMI:33.5ALLERGIES: CodeineCHIEF COMPLAINT: abdominal painDIAGNOSIS: Abdominal pain, DiarrheaLAB ORDERSOrder Description Priority Entered Acknowledged InitialedCBC w Diff STAT :01/17/2020 02:02 Ede Squires ; [place] RNCMP STAT :01/17/2020 02:02 Ede Squires ; [place] RNLipase STAT :01/17/2020 02:02 Ede Squires ; [place] RUIZDIAGNOSTIC STUDY ORDERSOrder Description Priority Entered Acknowledged InitialedMEDICATION/IV/DRIP/FLUID ORDERSOrder Description Priority Entered Acknowledged InitialedIV NS : 1000 mL/hr 01:01/17/2020 02:04 German(NOW x1) Ede Pillai ; [place] RNBentyl PO 10 mg :01/17/2020 02:02 Ede Squires ; [place] RNGENERAL ORDERSOrder Description Priority Entered Acknowledged Initialed[Electronically signed by Lilian Zapata R.N. (03:12 01/17/2020)][Electronically signed by Ede Pillai (06:05 01/17/2020)][Electronically locked by Lilian Zapata R.N. (03:12 01/17/2020)] Name Value Range Interpretation Code Description Data Nena rce(s) Supporting Document(s) ID Date Data Source [id number] 01/17/2020 01:49:00 AM EST [facility] 1 Medication Reconciliation Report [facility] Emergency Department [address] [place] [address] Phone #: ext- [phone] 01/17/2020 01:49 Patient: BENITA ANGEL Sex: M : 1980 Age: 39yWeight: 108.8 kgHeight/Length: 71 in.BMI: 33.5ALLERGIES: CodeineThe patient's Home Medications are listed below:THE FOLLOWING MEDICATIONS NEED TO BE RECONCILED: Gabapentin Oral Trileptal OralThe source(s) of the original Home Medication information:patientThe following Medications were given to the patient in the Emergency Department:Bentyl [PO] PO 10 mg, administered: 01/17/2020 2:02:00 AMIV NS IV Fluids bolus 1000 mL, then 1000 mL/hr, administered: 01/17/2020 2:04:00 AMThe following Medications were prescribed to the patient:Lomotil: take 1 tablet orally every 8 hours for 2 days, as needed for control of diarrhea. Dispense eight (8).No refills. -- Amadou Pillaintyl 10 mg capsules: take 1 orally every 8 hours for 2 days as needed for abdominal cramps. Dispenseten (10). No refill. -- Ede Pillai Name Value Range Interpretation Code Description Data Nena rce(s) Supporting Document(s) ID Date Data Source [id number] 01/17/2020 01:49:00 AM EST [facility] 1 Medication Administration Record [facility] Emergency Department [address] [place] [address] Phone #: ext- [phone] 01/17/2020 01:49 Patient: BENITA ANGEL Sex: M : 1980 Age: 39yWeight: 108.8 kgHeight/Length: 71 inBMI: 33.5ALLERGIES: Codeine Date/Time Medication Administered Medication OrderedStart IV NS IV NS : 1000 mL/hr (NOW x1)02:04 01/17/2020 Dose: IV FluidsStmino Etienne RN Rate: 1000 mL/hr---- Bolus: 1000 mLStop Dispensed: 1000 mL bag03:02 01/17/2020 Site: #1 left Nailakj Nitish tEienne R.N.Given BENTYL [PO] (DICYCLOMINE HCL) Bentyl PO 10 mg02:02 01/17/2020 Dose: 10 mg Capsules POStmino Etienne RN Name Value Range Interpretation Code Description Data Nena rce(s) Supporting Document(s) ID Date Data Source [id number] 01/17/2020 01:49:00 AM EST [facility] 1 General Instructions [facility] Emergency Department [address] [place] [address] Phone #: ext- [phone] 01/17/2020 01:49 Patient: BENITA ANGEL Sex: M : 1980 Age: 39yAcute generalized abdominal pain.DiarrheaINSTRUCTIONSWarnings: GENERAL WARNINGS: Return or contact your physician immediately if your conditionworsens or changes unexpectedly, if not improving as expected, or if other problems arise.Prescription Medications:Lomotil: take 1 tablet orally every 8 hours for 2 days, as needed for control of diarrhea. Dispense eight (8).No refills.Bentyl 10 mg capsules: take 1 orally every 8 hours for 2 days as needed for abdominal cramps. Dispenseten (10). No refill.Follow-up:Follow up with your doctor in two days if not better.Understanding of the discharge instructions verbalized by patient. ADDITIONAL INFORMATIONUnknown Causes of Abdominal Pain (Male)Based on your visit today, the exact cause of your abdominal pain is not clear. Your exam and testsdon't suggest a dangerous cause at this time. However, the signs of a serious problem may takemore time to appear. Although your evaluation was reassuring today, sometimes early in the courseof many conditions, exam and lab tests can appear normal. Therefore, it is important for you to watchfor any new symptoms or worsening of your condition.It may not be obvious what caused your symptoms. Pay attention to things that do seem to makeyour symptoms worse or better and discuss this with your doctor when you follow up.The evaluation of abdominal pain in the emergency department may only require an exam by thedoctor or it may include blood, urine or imaging studies, depending on many factors. Sometimesexams and tests can identify a cause but in many cases, a clear cause is not found. Further testing at 2 General Instructions [facility] Emergency Department [address] [place] [address] Phone #: ext- [phone] 01/17/2020 01:49 Patient: BENITA ANGEL Sex: M : 1980 Age: 39yfollow up visits may help to suggest a clear diagnosis.Home care Rest as much as you can until your next exam. Try to avoid any med icines (unless otherwise directed by your doctor), foods, activities, or other factors that may have contributed to your symptoms. Try to eat foods that you know that you have tolerated well in the past. Certain diets may be recommended for some conditions that cause abdominal pain. However, since the cause of your symptoms may not be clear, discuss your diet more with your healthcare provider or specialist for further recommendations. If you have diarrhea, it may help to avoid dairy (lactose) for the time being. A low fat, low fiber diet can also help. Eating several small meals per day as opposed to 2 or 3 larger meals may help. Avoid dehydration. Make sure to drink plenty of water. Other options include broth, soup, gelatin, sports drinks, or other clear liquids. Watch closely for anything that may make your symptoms worse or better. Pay close attention to symptoms below that may mean your condition is getting worse.Follow-up careFollow up with your [facility] provider if your symptoms are not improving, or as advised. In somecases, you may need more testing.When to seek medical adviceCall your healthcare provider right away if any of these occur: Pain is becoming worse You are unable to take your medicines or can't keep water down due to excessive vomiting Swelling of the abdomen Fever of 100.4F (38C) or higher, or as directed by your healthcare provider Blood in vomit or bowel movements (dark red or black color) Jaundice (yellow color of eyes and skin) New onset of weakness, dizziness or fainting 3 General Instructions [facility] Emergency Department [address] [place] [address] Phone #: ext- [phone] 01/17/2020 01:49 Patient: BENITA ANGEL Sex: M : 1980 Age: 39y New onset of chest, arm, back, neck or jaw pain [id number] [employer]. [address] [place] [address]. All rights reserved. This information is not intended as asubstitute for professional medical care. Always follow your healthcare professional's instructions.Diarrhea with Uncertain Cause (Adult)Diarrhea is when stools are loose and watery. This can be caused by: Viral infections Bacterial infections Food poisoning Parasites Irritable bowel syndrome (IBS) Inflammatory bowel diseases such as ulcerative colitis, Crohn's disease, and celiac disease 4 General Instructions [facility] Emergency Department [address] [place] [address] Phone #: ext- [phone] 01/17/2020 01:49 Patient: BENITA ANGEL Sex: M : 1980 Age: 39y Food intolerance, such as to lactose, the sugar found in milk and milk products Reaction to medicines like antibiotics, laxatives, cancer drugs, and antacidsAlong with diarrhea, you may also have: Abdominal pain and cramping Nausea and vomiting Loss of bowel control Fever and chills Bloody stoolsIn some cases, antibiotics may help to treat diarrhea. You may have a stool sample test. This is doneto see what is causing your diarrhea, and if antibiotics will help treat it. The results of a stool sampletest may take up to 2 days. The healthcare provider may not give you antibiotics until he or she hasthe stool test results.Diarrhea can cause dehydration. This is the loss of too much water and other fluids from the body.When this occurs, body fluid must be replaced. This can be done with oral rehydration solutions. Oralrehydration solutions are available at drugstores and grocery stores without a prescription. Sportsdrinks are not the best choice if you are very dehydrated. They have too much sugar and not enoughelectrolytes.Home careFollow all instructions given by your healthcare provider. Rest at home for the next 24 hours, or untilyou feel better. Avoid caffeine, tobacco, and alcohol. These can make diarrhea, cramping, and painworse.If taking medicines: Rjbi-njm-xmfuchr nausea and diarrhea medicines are generally OK unless you experience fever or blood stool. Check with your doctor first in those circumstances. You may use acetaminophen or NSAID medicines like ibuprofen or naproxen to reduce pain and fever. Don't use these if you have chronic liver or kidney disease, or ever had a stomach ulcer or gastrointestinal bleeding. Don't use NSAID medicines if you are already taking one for another condition (like arthritis) or are on daily aspirin therapy (such as for heart disease or after a stroke). Talk with your healthcare provider first. If antibiotics were prescribed, be sure you take them until they are finished. Don't stop taking them even when you feel better. Antibiotics must be taken as a full course. 5 General Instructions [facility] Emergency Department [address] [place] [address] Phone #: ext- [phone] 01/17/2020 01:49 Patient: BENITA ANGEL Sex: M : 1980 Age: 39yTo prevent the spread of illness: Remember that washing with soap and water and using alcohol-based process laboratory specialist is the best way to prevent the spread of infection. Dry your hands with a single use towel (like a paper towel). Clean the toilet after each use. Wash your hands before eating. Wash your hands before and after preparing food. Keep in mind that people with diarrhea or vomiting should not prepare food for others. Wash your hands after using cutting boards, countertops, and knives that have been in contact with raw foods. Wash and then peel fruits and vegetables. Keep uncooked meats away from cooked and mrpsn-ot-kyi foods. Use a food thermometer when cooking. Cook poultry to at least 165F (74C). Cook ground meat (beef, veal, pork, badillo) to at least 160F (71C). Cook fresh beef, veal, badillo, and pork to at least 145F (63C). Don't eat raw or undercooked eggs (poached or sharmin side up), poultry, meat, or unpasteurized milk and juices.Food and drinksThe main goal while treating vomiting or diarrhea is to prevent dehydration. This is done by takingsmall amounts of liquids often. Keep in mind that liquids are more important than food right now. Drink only small amounts of liquids at a time. Don't force yourself to eat, especially if you are having cramping, vomiting, or diarrhea. Don't eat large amounts at a time, even if you are hungry. If you eat, avoid fatty, greasy, spicy, or fried foods. Don't eat dairy foods or drink milk if you have diarrhea. These can make diarrhea worse.During the first 24 hours you can try: Oral rehydration solutions. Sports drinks may be used if you are not too dehydrated and are otherwise healthy. Soft drinks without caffeine 6 General Instructions [facility] Emergency Department [address] [place] [address] Phone #: ext- [phone] 01/17/2020 01:49 Patient: BENITA ANGEL Sex: M : 1980 Age: 39y Laurie destinee Water (plain or flavored) Decaf tea or coffee Clear broth, consomm, or bouillon Gelatin, popsicles, or frozen fruit juice barsThe second 24 hours, if you are feeling better, you can add: Hot cereal, plain toast, bread, rolls, or crackers Plain noodles, rice, mashed potatoes, chicken noodle soup, or rice soup Unsweetened canned fruit (no pineapple) BananasAs you recover: Limit fat intake to less than 15 grams per day. Don't eat margarine, butter, oils, mayonnaise, sauces, gravies, fried foods, peanut butter, meat, poultry, or fish. Limit fiber. Don't eat raw or cooked vegetables, fresh fruits except bananas, or bran cereals. Limit caffeine and chocolate. Limit dairy. Don't use spices or seasonings except salt. Go back to your normal diet over time, as you feel better and your symptoms improve. If the symptoms come back, go back to a simple diet or clear liquids.Follow-up careFollow up with your healthcare provider, or as advised. If a stool sample was taken or cultures weredone, call the healthcare provider for the results as instructed.Call [phone] if you have any of these symptoms: Trouble breathing Confusion 7 General Instructions [facility] Emergency Department [address] [place] [address] Phone #: ext- [phone] 01/17/2020 01:49 Patient: BENITA ANGEL Sex: M : 1980 Age: 39y Extreme drowsiness or trouble walking Loss of consciousness Rapid heart rate Chest pain Stiff neck SeizureWhen to seek medical adviceCall your healthcare provider right away if any of these occur: Abdominal pain that gets worse Constant lower right abdominal pain Continued vomiting and inability to keep liquids down Diarrhea more than 5 times a day Blood in vomit or stool Dark urine or no urine for 8 hours, dry mouth and tongue, tiredness, weakness, or dizziness Drowsiness New rash You don't get better in 2 to 3 days Fever of 100.4F (38C) or higher, or as directed by your healthcare provider [phone] [employer]. [address] [place] [address], [place] [address]. All rights reserved. This information is not intended as asubstitute for professional medical care. Always follow your healthcare professional's instructions.Atropine; Diphenoxylate tabletsWhat is this medicine?ATROPINE; DIPHENOXYLATE (A troe peen dye fen OX i late) is used to treat diarrhea.How should I use this medicine?Take this medicine by mouth with a glass of water. Follow the directions on the prescription label. Youcan take the tablets with food. Take your doses at regular intervals. Do not take your medicine more 8 General Instructions [facility] Emergency Department [address] [place] [address] Phone #: [phone]- [phone] 01/17/2020 01:49 Patient: BENITA ANGEL Sex: M : 1980 Age: 39yoften than directed. Once your diarrhea has been brought under control your doctor or health careprofessional may reduce your doses.Talk to your developer automatic regarding the use of this medicine in children. Special care may be needed.Elderly patients may be more sensitive to the effects of this medicine.What side effects may I notice from receiving this medicine?Side effects that you should report to your doctor or health director of patient care as soon as possible: allergic reactions like skin rash, itching or hives, swelling of the face, lips, or tongue bloated, swollen feeling breathing problems changes in vision fast, irregular heartbeat stomach painSide effects that usually do not require medical attention (report to your doctor or health careprofessional if they continue or are bothersome): headache loss of appetite mood changes nausea, vomiting numbness or tingling in the hands and feetWhat may interact with this medicine? alcohol antihistamines for allergy, cough and cold barbiturate medicines for inducing sleep or treating seizures certain medicines for depression, anxiety, or psychotic disturbances certain medicines for sleep medicines for movement abnormalities as in Parkinson's disease, or for gastrointestinal problems 9 General Instructions [facility] Emergency Department [address] [place] [address] Phone #: [phone]- [phone] 01/17/2020 01:49 Patient: BENITA ANGEL Sex: M : 1980 Age: 39y muscle relaxants narcotic medicines (opiates) for painWhat if I miss a dose?If you miss a dose, take it as soon as you can. If it is almost time for your next dose, take only thatdose. Do not take double or extra doses.Where should I keep my medicine?Keep out of the reach of children. This medicine can be abused. Keep your medicine in a safe placeto protect it from theft. Do not share this medicine with anyone. Selling or giving away this medicine isdangerous and against the law.This medicine may cause accidental overdose and if taken by other adults, children, or pets.Mix any unused medicine with a substance like cat litter or coffee grounds. Then throw the medicineaway in a sealed container like a sealed bag or a coffee can with a lid. Do not use the medicine afterthe expiration date.Store at room temperature between 15 and 30 degrees C (59 and 86 degrees F). Protect from light.Keep container tightly closed.What should I tell my health care provider before I take this medicine?They need to know if you have any of these conditions: bacterial food poisoning colitis dehydration Down's syndrome jaundice or liver disease an unusual or allergic reaction to atropine, diphenoxylate, other medicines, foods, dyes, or preservatives or trying to get breast-feedingWhat should I watch for while using this medicine?If your symptoms do not start to get better after taking this medicine for two days, check with your 10 General Instructions [facility] Emergency Department [address] [id number] Phone #: ext- [phone] 01/17/2020 01:49 Patient: BENITA ANGEL Sex: M : 1980 Age: 39ydoctor or health director of patient care, you may have a problem that needs further evaluation. Check withyour doctor or health director of patient care right away if you develop a fever or bloody diarrhea.You may get drowsy or dizzy. Do not drive, use machinery, or do anything that needs mentalalertness until you know how this medicine affects you. Alcohol can increase possible drowsiness anddizziness. Avoid alcoholic drinks.Your mouth may get dry. Chewing sugarless gum or sucking hard candy, and drinking plenty of watermay help. Contact your doctor if the problem does not go away or is severe. Drinking plenty of watercan also help prevent dehydration that can occur with diarrhea.NOTE:This sheet is a summary. It may not cover all possible information. If you have questions about this medicine, talk to your doctor, pharmacist, orhealth care provider. Copyright 2019 [employer] You have been given the following additional information: Unknown Causes of Abdominal Pain (Male) Diarrhea, Unknown Cause Atropine; Diphenoxylate tablets(Electronically signed by Ede Pillai, 01/17/2020 06:05) Name Value Range Interpretation Code Description Data Nena rce(s) Supporting Document(s) ID Date Data Source [id number] 01/17/2020 01:49:00 AM EST [facility] 1 Clinical Report - Nurses [facility] Emergency Department [address] [place] [address] Phone #: [phone] [phone] 01/17/2020 01:49 Patient: BENITA ANGEL Sex: M : 1980 Age: 39yTRIAGEArrived by private vehicle. Historian: patient.Triage time: 01:52 01/17/2020. Acuity: LEVEL 3.Chief Complaint: ABDOMINAL PAIN.This started yesterday. Onset was gradual. Symptoms are constant and still present (1600 hours). Fernandohayoung had sharp, intermittent abdominal pain. 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 (Pepto,).SEPSIS SCREEN: SIRS Screen negative. Sepsis Screen negative. No suspected or confirmed signs ofinfection present. --01:57 01/17/20 German Etienne RN01:52 01/17/20. BP: 156/85 (regular adult cuff) taken on the right arm, via an automated monitor, whilelying. MAP: 108. HR: 81 (regular, normal rate and strong). RR: 18 (regular, unlabored and normal). U4kcgoevkkal: 94% on room air. Temp: 97.1 F (oral). Pain level now: 04/27. --01:57 01/17/20 German Etienne RN.Weight: 108.8 kg stated. Height/Length: 71 inches Per Patient. BMI: 33.5. --01:54 01/17/20 German Etienne RN.MedicationsGabapentin Oral. Trileptal Oral. --01:54 01/17/20 German Etienne RN.AllergiesCodeine. --01:54 01/17/20 German Etienne RN.PROBLEMS:Bipolar Disorder.Chronic Back Pain.Knee Effusion. --01:54 01/17/20 German Etienne RN.Medication/allergy information source: the patient. --01:57 01/17/20 German Etienne RN.HistoryPAST MEDICAL HX: Immunizations: up-to-date.SOCIAL HX: Current every day heavy tobacco smoker (cigarette)- 1-2 packs per day. No alcohol use ordrug use. No recent travel. No known contact with a sick individual. He was offered HIV testing but 2 Clinical Report - Nurses [facility] Emergency Department [address] [place] [address] Phone #: ext- [phone] 01/17/2020 01:49 Patient: BENITA ANGEL Sex: M : 1980 Age: 39y declined and hepatitis C testing but declined. Unknown if he has traveled outside the [place] Infectious disease exposure: No infectious disease exposure. SELF HARM ASSESSMENT: Self harm assessment was performed. The patient answered "no" to the question(s) "Have you recently felt down, depressed, or hopeless?", "Do you have thoughts of harming or killing yourself?", "Do you have a plan for harming or killing yourself?", "Have you recently had thoughts about harming or killing others?", "Do you have any dangerous items in your possession?", "Have you noticed less interest or pleasure in doing things?", "Are you here because you tried to hurt yourself?" and "Have you ever tried to hurt yourself before today?". ABUSE ASSESSMENT: No report of abuse. FALL RISK ASSESSMENT: Fall risk assessment completed. No risk factors identified. --:57 01/17/20 German Etienne RN. FAMILY HX: No significant family medical history. --01:44 01/17/20 Ede Pillai. Assessment The patient states feels the same. --:57 01/17/20 German Etienne RN.PHYSICAL ASSESSMENTAmbulatory to room.GENERAL / NEURO / PSYCH: Alert. Oriented X 4. Appears in no acute distress.HEENT: Mucous membranes are pink.RESPIRATORY: Respirations not labored. Breath sounds within normal limits.CVS: Capillary refill less than 2 seconds.GI / : Abdomen soft. Abdominal tenderness diffusely. Bowel sounds within normal limits. No nauseanoted. No diarrhea.SKIN: Skin is warm and dry. --:57 01/17/20 German Etienne RN.NURSING PROGRESS NOTESPatient gowned. Head of bed elevated 30 degrees. Reassurance given. Call light placed in reach.Bed placed in lowest pos ition. Brakes of bed on. Patient ready for evaluation- ED physician notified.--01:58 01/17/20 German Etienne RN 02:02 01/17/2020 Bentyl (Dicyclomine HCl) PO Capsules 10 mg given. Allergies verified and confirmed 5 rights. Information reviewed with patient including reason for taking this medication, signs of allergic reaction and precautions. Verbalizes understanding. --02:02 01/17/20 German Etienne RN 02:03 01/17/2020 Site #1 started via IV in the left antecubital space with an 20g angiocath, with aseptic technique and good blood return; one attempt. Blood drawn: rainbow set. Saline lock flushed with 10 mL saline. --02:04 01/17/20 German Etienne RN 02:04 01/17/2020 Started bag #1 1000 mL IV Fluids IV NS; bolus of 1000 mL then at 1000 mL/hr via site 3 Clinical Report - Nurses [facility] Emergency Department [address] [place] [address] Phone #: [phone] 01/17/2020 01:49 Patient: BENITA ANGEL Sex: M : 1980 Age: 39y #1 via IV pump. Allergies verified and confirmed 5 rights. IV patency established. IV site checked: no pain, redness, or swelling. IV flushed thoroughly pre- and post-medication administration. Information reviewed with patient. --02:04 01/17/20 German Etienne RN 03:02 01/17/2020 IV Fluids IV NS via IV site #1 Discontinued: bag #1 completed. Total amount infused: 1000 mL. IV patency established. IV site checked: no pain, redness, or swelling. IV flushed thoroughly. --03:07 01/17/20 Lilian Etienne R.N.DISPOSITION / DISCHARGE 03:00 01/17/2020 Site #1 removed upon discharge. Bandage applied. --03:00 01/17/20 Lilian Etienne R.N. Departure time: 03:03 01/17/2020. Condition at departure: improved and stable. No learning barriers present. Discharge instructions provided and reviewed with the patient. Reviewed medication(s). Prescription(s) sent electronically to pharmacy. Patient verbalized understanding. Written instructions provided in Rwandan. The patient was discharged by the physician. He was discharged home. He left ambulatory and via private vehicle. --03:03 01/17/20 Lilian Etienne R.N. 02:59 01/17/20. BP: 147/94. MAP: 111. HR: 64. RR: 16. O2 saturation: 99%. Temp: 97.1 F. Pain level now: 0/10. --03:03 01/17/20 Lilian Etienne R.N.Locked/Released at 01/17/2020 03:12 by Lilian Etienne R.N. Name Value Range Interpretation Code Description Data Nena rce(s) Supporting Document(s) ID Date Data Source [id number] 01/17/2020 01:49:00 AM EST [facility] 1 Clinical Report - Physicians/Mid Levels [facility] Emergency Department [address] [place] [address] Phone #: ext- [phone] 01/17/2020 01:49 Patient: BENITA ANGEL Sex: M : 1980 Age: 39y Time Seen: 01:32 01/17/2020. Arrived- By private vehicle. Historian- patient.HISTORY OF PRESENT ILLNESS Chief Complaint: ABDOMINAL PAIN. This started just prior to arrival 4 PM Jan 16, 2020 and is still present. It is described as stabbing, cramping and diffuse. No radiation. It is described as located in the right upper quadrant, right abdomen and left abdomen, in the upper abdomen and in the periumbilical area. It is described as located in the lower abdomen. At its maximum, severity described as 2 / 10. Modifying factors. Not worsened by anything. Not relieved by anything. No nausea, loss of appetite or vomiting. He has had diarrhea. No additional abdominal pain. (cramping is waxing and waning and moves throughout abdomen. No recent antibiotic use. nonbloody diarrhea. He estimates 4-5 loose BM's in one day.). No recent travel. Similar symptoms previously. None. Recent medical care: Not recently seen/assessed.REVIEW OF SYSTEMSNo constipation, black stools, difficulty with urination, pain with urination or fever. No headache, sorethroat, chest pain, cough or joint pain. No back pain. All other systems reviewed and are negative.PAST HISTORYSee nurses notes. No history of peptic ulcer. Problems: Bipolar Disorder. Chronic Back Pain. Knee Effusion. Additional Surgeries: Dental Surgery. Vasectomy.SOCIAL HISTORYCurrent every day smoker. No alcohol use.FAMILY HISTORYNo significant family medical history.ADDITIONAL NOTES 2 Clinical Report - Physicians/Mid Levels [facility] Emergency Department [address] [place] [address] Phone #: ext- [phone] 01/17/2020 01:49 Patient: BENITA ANGEL Sex: M : 1980 Age: 39y The nursing notes have been reviewed.PHYSICAL EXAMVital Signs: 2019 01:52 BP: lying 156/85. MAP: 108. HR: 81. RR: 18. O2 saturation: 94% on roomair. Temp: 97.1 F. Pain level now: 2/10.Appearance: Alert. Oriented X3. No acute distress.Eyes: Pupils equal, round and reactive to light.ENT: Ears normal. Nose normal. Pharynx normal.Neck: Normal inspection. Neck supple.CVS: Normal heart rate and rhythm.Respiratory: No respiratory distress. Breath sounds normal.Abdomen: Soft. Mild tenderness diffusely. Abnormal bowel sounds: hyperactive. Obese. Nodistention.Back: Normal inspection.Skin: Skin warm and dry. Normal skin color. Normal skin turgor.Extremities: Extremities exhibit normal ROM. No lower extremity edema.Neuro: Oriented X 3. No motor deficit. No sensory deficit.LABS, X-RAYS, AND EKGLaboratory Tests: CBC w Diff: (ENRIQUE: 01/17/2020 01:51) ( MsgRcvd 01/17/2020 02:17) Final results Test Result Flag Units (Reference) CBC W/AUTOMATED DIFF COMPLETE BLOOD COUNT WBC 14.5 H 10/uL (4.2 - 11.0) RBC 5.16 10/uL (4.50 - 6.30) HEMOGLOBIN 15.7 g/dL (14.0 - 16.0) HEMATOCRIT 44.4 % (41.0 - 51.0) MCV 86.0 fL (80.0 - 94.0) MCH 30.4 pg (27.0 - 34.0) MCHC 35.4 g/dL (31.0 - 36.0) RDW 12.4 % (11.5 - 14.8) PLATELETS 265 10/uL (150 - 450) MPV 10.6 H fL (7.4 - 10.4) NEUT 73.0 % (37.0 - 80.0) LYMPH 19.5 L % (25.0 - 40.0) MONO 5.6 % (3.0 - 8.0) EOS 1.4 % (0.0 - 7.0) BASO 0.2 % (0.0 - 2.0) %IG 0.3 H % (0.0 - 0.0) %NRBC 0.0 % (0.0 - 0.0) #NEUT 10.59 H 10/uL (2.00 - 6.90) #LYMPH 2.83 10/uL (0.60 - 3.40) #MONO 0.81 10/uL (0.00 - 0.90) #EOS 0.20 10/uL (0.00 - 0.70) #BASO 0.03 10/uL (0.00 - 0.20) #IG 0.05 10/uL (0.00 - 0.10) #NRBC 0.00 10/uL (0.00 - 0.00) MANUAL DIFF NOT INDICATED RBC MORPH NOT INDICATED CMP: (ENRIQUE: 01/17/2020 01:51) ( MsgRcvd 03/2019 02:17) Final results 3 Clinical Report - Physicians/Mid Levels [facility] Emergency Department [address] [place] [address] Phone #: ext- [phone] 01/17/2020 01:49 Patient: BENITA ANGEL Sex: M : 1980 Age: 39y Test Result Flag Units (Reference) COMPREHENSIVE METABOLIC PANEL COMPREHENSIVE METABOLIC PANEL SODIUM 138 mEq/L (134 - 153) POTASSIUM 3.8 mEq/L (3.6 - 5.0) CHLORIDE 102 mEq/L (98 - 107) CO2 27 MEQ/L (22 - 30) GLUCOSE 113 H MG/DL (65 - 110) BUN 8 MG/DL (7 - 21) CREATININE 0.8 MG/DL (0.7 - 1.5) BUN/CREAT 10 (8 - 27) TOTAL PROTEIN 7.5 G/DL (6.3 - 8.2) ALBUMIN 4.3 G/DL (3.9 - 5.0) GLOBULIN 3.2 GM/DL (2.4 - 3.2) A/G RATIO 1.3 (0.8 - 2.0) CALCIUM 9.0 MG/DL (8.4 - 10.2) TOTAL BILI <0.7 MG/DL (0.2 - 1.3) ALKALINE PHOS 93 U/L (38 - 126) SGOT/AST 15 U/L (5 - 40) SGPT/ALT 17 U/L (7 - 56) ANION GAP 9.0 mmol/L (8.0 - 16.0) AGE 39 yrs NON-AA GFR >60 mL/min AFR AMER GFR >60 mL/min Male GFR Interprentation 20-49 yrs >60 mL/min Normal 50-59 yrs >56 mL/min Normal 60- 69 yrs >49 mL/min Normal 70-79yrs >42 mL/min Normal 80 and above >35 mL/min Normal Female GFR Interpretation 20-39 yrs >60 mL/min Normal 40-49 yrs >58 mL/min Normal 50-59 yrs >51 mL/min Normal 60-69 yrs >45 mL/min Normal 70-79 yrs >39 mL/min Normal 80 and above >32 mL/min Normal Lipase: (ENRIQUE: 01/17/2020 01:51) ( MsgRcvd 01/17/2020 02:17) Final results Test Result Flag Units (Reference) LIPASE 28 U/L (13 - 60).PROGRESS AND PROCEDURESCourse of Care: 02:21 01/17/20. Resting comfortably. No diarrhea in ED. Abdominal pain is waxing andwaning and diffuse. No tenderness in RLQ. 02:37 01/17/20. Discharge on bentyl and immodium. Disposition: Discharged. Condition: stable.CLINICAL IMPRESSION Acute generalized abdominal pain. Diarrhea 4 Clinical Report - Physicians/Mid [facility] Emergency Department [address] [place] [address] Phone #: ext- [phone] 01/17/2020 01:49 Patient: BENITA ANGEL Sex: M : 1980 Age: 39yINSTRUCTIONS Warnings: GENERAL WARNINGS: Return or contact your physician immediately if your condition worsens or changes unexpectedly, if not improving as expected, or if other problems arise. Prescription Medications: Lomotil: take 1 tablet orally every 8 hours for 2 days, as needed for control of diarrhea. Dispense eight (8). No refills. Bentyl 10 mg capsules: take 1 orally every 8 hours for 2 days as needed for abdominal cramps. Dispense ten (10). No refill. Follow-up: Follow up with your doctor in two days if not better. Understanding of the discharge instructions verbalized by patient.(Electronically signed by Ede Pillai, 01/17/2020 06:05) Name Value Range Interpretation Code Description Data Nena rce(s) Supporting Document(s) ID Date Data Source [id number] 01/17/2020 02:16:00 AM EST [facility] Name Value Range Interpretation Code Description Data [facility] rce(s) Supporting Document(s) COMPREHENSIVE METABOLIC PANEL [facility] COMPREHENSIVE METABOLIC PANEL Sodium [Moles/volume] in Serum or Plasma 138 mEq/L 134 - 153 [facility] Potassium [Moles/volume] in Serum or Plasma 3.8 mEq/L 3.6 - 5.0 [facility] Chloride [Moles/volume] in Serum or Plasma 102 mEq/L 98 - 107 [facility] Carbon dioxide, total [Moles/volume] in Serum or Plasma 27 MEQ/L 22 - 30 [facility] Glucose [Mass/volume] in Serum or Plasma 113 MG/DL 65 - 110 H [facility] BUN 8 MG/DL 7 - 21 [facility] al Creatinine [Mass/volume] in Serum or Plasma 0.8 MG/DL 0.7 - 1.5 [facility] BUN/CREAT 10 8 - 27 [facility] al Protein [Mass/volume] in Serum or Plasma 7.5 G/DL 6.3 - 8.2 [facility] Albumin [Mass/volume] in Serum or Plasma 4.3 G/DL 3.9 - 5.0 [facility] Globulin [Mass/volume] in Serum by calculation 3.2 GM/DL 2.4 - 3.2 [facility] A/G RATIO 1.3 0.8 - 2.0 [facility] Calcium [Mass/volume] in Serum or Plasma 9.0 MG/DL 8.4 - 10.2 [facility] Bilirubin.total [Mass/volume] in Serum or Plasma <0.7 MG/DL 0.2 - 1.3 [facility] Alkaline phosphatase [Enzymatic activity/volume] in Serum or Plasma 93 U/L 38 - 126 [facility] Aspartate aminotransferase [Enzymatic activity/volume] in Serum or Plasma 15 U/L 5 - 40 [facility] Alanine aminotransferase [Enzymatic activity/volume] in Seru m or Plasma 17 U/L 7 - 56 [facility] Anion gap 3 in Serum or Plasma 9.0 mmol/L 8.0 - 16.0 [facility] AGE 39 yrs [facility] NON-AA GFR >60 mL/min [facility] AFR AMER GFR >60 mL/min [facility] Male GFR In terprentation 20-49 yrs >60 mL/min Normal 50-59 yrs >56 mL/min Normal 60-69 yrs >49 mL/min Normal 70-79yrs >42 mL/min Normal 80 and above >35 mL/min Normal Female GFR Interpretation 20-39 yrs >60 mL/min Normal 40-49 yrs >58 mL/min Normal 50-59 yrs >51 mL/min Normal 60-69 yrs >45 mL/min Normal 70-79 yrs >39 mL/min Normal 80 and above >32 mL/min Normal ID Date Data Source [id number] 01/17/2020 02:16:00 AM [facility] Name Value Range Interpretation Code Description Data Nena rce(s) Supporting Document(s) Lipase [Enzymatic activity/volume] in Serum or Plasma 28 U/L 13 - 60 [facility] ID Date Data Source [id number] 01/17/2020 02:04:00 AM [facility] Name Value Range Interpretation Code Description Data Nena rce(s) Supporting Document(s) CBC W/AUTOMATED DIFF [facility] COMPLETE BLOOD COUNT Leukocytes [#/volume] in Blood by Automated count 14.5 10^3/uL 4.2 - 11.0 H [facility] Erythrocytes [#/volume] in Blood by Automated count 5.16 10^6/uL 4. 50 - 6.30 [facility] Hemoglobin [Mass/volume] in Blood 15.7 g/dL 14.0 - 16.0 [facility] Hematocrit [Volume Fraction] of Blood by Automated count 44.4 % 4 1.0 - 51.0 [facility] Erythrocyte mean corpuscular volume [Entitic volume] by Auto mated count 86.0 fL 80.0 - 94.0 [facility] Erythrocyte mean corpuscular hemoglobin [Entitic mass] by Automated count 30.4 pg 27.0 - 34.0 [facility] Erythrocyte mean corpuscular hemoglobin concentration [Mass/volume] by Automated count 35.4 g/dL 31.0 - 36.0 [facility] Erythrocyte distribution width [Ratio] by Automated count 12.4 % 11.5 - 14.8 [facility] Platelets [#/volume] in Blood by Automated count 265 10^3/uL 150 - 45 0 [facility] Platelet mean volume [Entitic volume] in Blood by Automated count 10.6 fL 7.4 - 10.4 H [facility] Neutrophils/100 leukocytes in Blood by Automated count 73.0 % 37. 0 - 80.0 [facility] Lymphocytes/100 leukocytes in Blood by Manual count 19.5 % 25.0 - 40.0 L [facility] Monocytes/100 leukocytes in Blood by Automated count 5.6 % 3.0 - 8.0 [facility] Eosinophils/100 leukocytes in Blood by Automated count 1.4 % 0.0 - 7.0 [facility] Basophils/100 leukocytes in Blood by Automated count 0.2 % 0.0 - 2.0 [facility] %IG 0.3 % 0.0 - 0.0 H [facility] al %NRBC 0.0 % 0.0 - 0.0 [facility] al Neutrophils [#/volume] in Blood by Automated count 10.59 10^3/uL 2. 00 - 6.90 H [facility] Lymphocytes [#/volume] in Blood by Automated count 2.83 10^3/uL 0.60 - 3.40 [facility] Monocytes [#/volume] in Blood by Automated count 0.81 10^3/uL 0.00 - 0.90 [facility] Eosinophils [#/volume] in Blood by Automated count 0.20 10^3/uL 0.00 - 0.70 [facility] Basophils [#/volume] in Blood by Automated count 0.03 10^3/uL 0.00 - 0.20 [facility] #IG 0.05 10^3/uL 0.00 - 0.10 [facility] ospital #NRBC 0.00 10^3/uL 0.00 - 0.00 [facility] ospital MANUAL DIFF NOT INDICATED [facility] RBC MORPH NOT INDICATED [facility] spital ID Date Data Source [id number] 12/16/2019 04:06:11 PM EDT [facility] Measurements & CalculationsHeight: 72 inches (6 ft. 0 in.) 182.88 cm Weight: 244 pounds 6 oz. 111.08 kg Body Mass Index (BMI): 33.26BMI Interpretation: ObeseBody Surface Area (BSA): 2.32Weight Management Education Done (Nutrition/Physical Activity)Vital SignsTemperature: 98.0FPulse Rate: 70 beats/minuteRespiratory Rate: 16 respirat ions/minuteBlood Pressure: 132/87 O2 Saturation: 96% Vital Signs performed by: Debbie Oconnell LPN, December 16, 2019 4:06 PMVital Signs performed by: Debbie Oconnell LPN, December 16, 2019 4:07 PMInitial Intake Information From: patientRoom #: 9Infectious Disease / Travel ScreeningRecent travel for you or any close contacts? NoHave you had any close contact with anyone diagnosed with or under investigation for COVID-19 (coronavirus)? NoFever? NoRespiratory symptoms: cough, cold, congestion, shortness of breath, difficulty breathing? YesLoss of smell? NoLoss of taste? NoDetails: smokerSmo josh, Tobacco, Vaping or Smoke Exposure StatusSmoke Status: current every day smokerTobacco Use: YesAdv to Quit: YesDo you vape? NoHealthcare HistorySince your last office visit...Have you been admitted to the hospital? NoHave you been to an emergency room (ER) or urgent care clinic? Yes - [facility] ER Laceration to left lower leg Emergency room (ER) or urgent care date reported today: 12/04/2019Have you seen another healthcare provider? Yes - [facility] Have you seen a dentist? NoIntake performed by: Debbie Oconnell LPN, December 16, 2019 4:10 PMRate Your HealthIn general, would you say your health is? GoodPain AssessmentAre you currently having any pain which... You would like your provider to address? Yes Affects your activity level? YesPain AssessmentPain ScaleNumeric Rating Scale: 7 / 10Location: Low back Duration: chronicFrequency: OccasionallyCharacter/Quality: aching, sharp, stabbing and throbbingIs the pain radiating? NoScreening, Brief Intervention, & Referral to Treatment (SBIRT)Pre- Screening Questions How many times have you have 5 or more drinks in a day? 0How many times have you used an illegal drug or used a prescription medication for a non-medical reason? 0Performed by: Debbie Oconnell LPN, December 16, 2019 4:14 PMPatient History Medical History:bipolarhypertensionhigh chloesterol3 bulging discs lower backSurgical History:vasectomyteeth removedcyst on stomach drained Family History:No known family historySocial/Personal History: Advised to Quit/Tobacco Education: YesChief Complaintfollow-up visit lab results and Hospital D/C Room 9History of Present Illness (HPI)39 YO male here for follow up on labs and ER Visit. Pt states ER vist for left knee pain, from sports injury. Pt states occured one month ago. pt states left knee pain improving. Pt states concerns with chronic back pain. Pt states would like to be referred to ortho in [place] for second opinion. Pt states Abraision left almeida started about 2 weeks ago. pt states injuried while playing base ball. PT refused Flu Vaccine at this time HPI performed by: Mago GRIGGSP, December 16, 2019 4:46 PMTransitions of Care InboundProblem ReviewProblem List was reviewed and/or updated during this visit.Medication Reconciliation & ReviewMedication List was reviewed and/or updated during this visit, including review of any [id number] medications, herbal therapies, and/or supplements.Allergy Re viewAllergy List was reviewed and/or updated during this visit.Adult Preventive CareProvider Calculated and Reviewed all Clinical Protocols for patient today. Screening Tobacco Screening: Smoking Status: current every day smoker (12/16/2019) Tobacco Use: Currently (12/16/2019) Advised to Quit: Yes (12/16/2019)Labs/Meds/Other Counseling-Nutrition and Physical Activity:BMI Interpretation: Obese (12/16/2019) Counseling: Done (12/16/2019) Physical Activity: Done (12/16/2019)Review of Systems General: Denies loss of appetite, chills, dizziness, fatigue, fever, continued fever, headache, feeling ill, sweats, night sweats, sleep disturbances, weight loss. Eyes: Denies blurring of vision, double vision, irritation, discharge, vision loss, eye pain, eye swelling, droopy eyelid, sensitivity to light, redness, itching. Ears/Nose/Throat: Denies earache, ear discharge, ringing in ears, decreased hearing, nasal congestion, nosebleeds, runny nose, sore throat, hoarseness, difficulty swallowing, dry mouth, tooth pain, bleeding gums, swollen glands. Cardiovascular: Denies chest pain, palpitations, feeling faint, trouble breathing w/exertion, SOB upon lying down, SOB at night, peripheral edema, eleva bhaskar blood pressure, decreased heart rate. Respiratory: Denies cough, difficulty breathing, shortness of breath, excessive sputum, coughing up blood, wheezing, chest pain. Gastrointestinal: Denies nausea, vomiting, bleeding, burning, itching, irritation, cramps, diarrhea, constipation. Genitourinary: Denies urinary incontinence, pain with urination, burning with urination, urinary frequency, urinary hesitancy, urinary urgency, urinary urgency at night, incomplete emptying, blood in urine. Musculoskeletal: Denies back pain, joint pain, leg pain, other pain-see comments, joint swelling, body aches, muscle aches, muscle cramps, muscle weakness, stiffness, recent injury. Skin: Complains of redness. Denies rash, hives, itching, dryness, nail changes, suspicious lesions, athlete's foot, rash on palms, rash on bottom of feet. abraision, left legNeurologic: Denies muscle impairment, weakness, numbness/tingling, seizures, slurred speech, feeling faint, tremors, vertigo, paralysis on one side, paralysis on both sides. Psychiatric: Denies depression, anxiety, memory loss, mental disturbance, suicidal ideation, homicidal ideation, hallucinations, paranoia, feeling stressed, hearing voices. Endo crine: Denies cold intolerance, heat intolerance, excessive thirst, excessive hunger, excessive urination, weight loss, weight gain. Physical ExamGeneral Appearance: well nourished, well hydrated, no acute distressEyes, External: conjunctivae and lids normal, EOMIRespiratory, Auscultation: clear to auscultation bilaterally; no rales, rhonchi, or wheezesRespiratory, Effort: no intercostal retractions or use of accessory musclesCardiovascular, Auscultation: S1, S2 audible; no murmur, rub, or gallop; RRRPeripheral Circulation: no clubbing, cyanosis, edema, or varicositiesAbdomen: soft, non-tender, no masses, bowel sounds normalGait & Station: normalSkin, Inspection: left lateral leg abraisionOrientation: oriented to time, place, and personMood & Affect: no depression, anxiety, or agitationJudgment & Insight: intactCare Management Plan Transitions of CareInboundRate Your HealthIn general, would you say your health is? GoodAssessment & Plan Problems:Added: Abrasion, left lower leg, initial encounter (IQA29-J18.812A) Assessment: healing abraision with redness. no drainage at this time. Taking Ibuprofen as needed Instructions: Please continue Ibuprofen 800mg twice daily as needed. Will send a prescription to start Keflex. Please try to Keep Abraision clean and dry. If symptom worsen. Please return to clinic or the ER.Person consulting for explanation of examination or test findings (ICD-V65.8) (GXW71-B20.2) Assessment: Instructions: We have reviewed your lab results with you today.Abrasion, left lower leg, initial encounter (MRC50-F61.812A) Assessment: Pt states injuried leg playiing base ball Instructions: Please do not take meloxicam while taking Ibuprofen.Pain in left knee (ICD-719.46) (YOI35-I47.562) Assessment: Improved , per patient. sports injury one month ago.Assessed:Back pain, chronic (ICD- 724.5) (UCE23-S69.89) Assessment: Instructions: We have made a referral for you today. We will contact you to set this up.Essential hypertension (ICD- 401.9) (ZUI90-J77) Assessment: Instructions: Your Blood pressure is at goal today.Nicotine dependence, other tobacco product, uncomplicated (VMB77-E83.290) Assessment: Instructions: Please continue to try to cut back on your smoking with a goal to quit. Please let us know if you need assistance in doing so.Prediabetes (BNE15-B91.03) Assessment: Instructions: Please continue ADA diet, low in sugars and low in carbohydrates. Please try to limit/ avoid processed foods.Patient Instructions/Care Plan: Abrasion- left lower leg- initial encounter: Please continue Ibuprofen 800mg twice daily as needed. Will send a prescription to start Keflex. Please try to Keep Abraision clean and dry. If symptom worsen. Please return to clinic or the ER.Person consulting for explanation of examination or test findings: We have reviewed your lab results with you today.Back pain- chronic: We have made a referral for you today. We will contact you to set this up.Abrasion- left lower leg- initial encounter: Please do not take meloxicam while taking Ibuprofen.Essential hypertension: Your Blood pressure is at goal today.Nicotine dependence- other tobacco product- uncomplicated: Please continue to try to cut back on your smoking with a goal to quit. Please let us know if you need assistance in doing so.Prediabetes: Please continue ADA diet, low in sugars and low in carbohydrates. Please try to limit/ avoid processed foods. Plan developed in collaboration with patient and/or familyMedications:IBUPROFEN 800 MG ORAL TABLETKEFLEX 500 MG ORAL CAPSULEMELOXICAM 7.5 MG ORAL TABLETAMOXICILLIN-POT CLAVULANATE 875-125 MG ORAL TABLETCYCLOBENZAPRINE HCL 10 MG ORAL TABLETHM CETIRIZINE HCL 10 MG ORAL TABLETCIPRODEX 0.3-0.1 % OTIC SUSPENSIONOXCARBAZEPINE 600 MG ORAL TABLETGABAPENTIN 600 MG ORAL TABLETEPIPEN 2-VICKY 0.3 MG/0.3ML INJECTION SOLUTION AUTO-INJECTORMedication Changes:New Prescription:KEFLEX 500 MG ORAL CAPSULE-take one tablet by mouth twice daily x 7 days. Qty: 14[Capsule] Refills: 0 Method: ElectronicIBUPROFEN 800 MG ORAL TABLET-Take one tablet by mouth twice daily as needed. Qty: 60[Tablet] Refills: 1 Method: ElectronicAllergies:* CODIENE (Critical)* BEE STINGS (Critical)Orders:Orthopaedics Consult [CPT-29693] COMP METABOLIC PANEL [CPT-52406] CBC W/DIFF [CPT-92676] HgBA1c [CPT-34042] LIPID PANEL [CPT-40711] Vitamin D 250H Unspecified [CPT-67766] Adult - Ofc Vst, EST, Level IV [CPT-82009] Follow-Up Return to clinic: 3 months and as needed Clinical Visit Summary CompletedMedications:IBUPROFEN 800 MG ORAL TABLET (IBUPROFEN) Take one tablet by mouth twice daily as needed. #60[Tablet] x 1 Route:ORAL Entered and Authorized by: Mago JAMESON Method used: Electronically to [facility] (retail) [address] [place] [address] Fax: Note to Pharmacy: Route: ORAL; Indications: ABRASION, LEFT LOWER LEG, INITIAL ENCOUNTER RxID: [id number] 500 MG ORAL CAPSULE (CEPHALEXIN) take one tablet by mouth twice daily x 7 days. #14[Capsule] x 0 Route:ORAL Entered and Authorized by: Mago JAMESON Method used: Electronically to [facility] (retail) [address] [place] [address] Note to Pharmacy: Route: ORAL; Indications: ABRASION, LEFT LOWER LEG, INITIAL ENCOUNTER RxID: [id number] signed by Mago JAMESON on 12/21/2019 at 1:08 AM Name Value Range Interpretation Code Description Data Nena rce(s) Supporting Document(s) ID Date Data Source [id number] 12/05/2019 05:02:00 AM EDT [facility] 1 OrderSheet [facility] Emergency Department [address] [place] [address] Phone #: ext- [phone] 12/05/2019 05:02 Patient: BENITA ANGEL Sex: M : 1980 Age: 39yWEIGHT:122.4 kg (S) HEIGHT:73 inches (S) BMI:35.6ALLERGIES: CodeineCHIEF COMPLAINT: back pain, back injury, chronic back painDIAGNOSIS: BackacheLAB ORDERSOrder Description Priority Entered Acknowledged InitialedUrinalysis (Clean STAT 05:35 12/05/2019 05:36 StevenCatch) Chris Etienne RN Physician;CBC w Diff STAT 05:35 12/05/2019 05:36 German Etienne RN Phys ician;CMP STAT 05:35 12/05/2019 05:36 German Etienne RN Physician;DIAGNOSTIC STUDY ORDERSOrder Description Priority Entered Acknowledged InitialedCT ABD PEL W/O STAT 05:35 12/05/2019 Ack'd: 05:49 06:38 StevenOral W/O IV Chris Etienne RNContrast Physician;(Oxygen?(No))(IV?(No)) NOTES: Back pain - severe Reason for Study: Trauma/InjuryMEDICATION/IV/DRIP/FLUID ORDERSOrder Description Priority Entered Acknowledged InitialedToradol IM 60 mg 05:35 12/05/2019 Ack'd: 05:46 05:48 German(NOW) Chris Etienne RN Physician;THM Percocet 06:27 12/05/2019 06:38 German(5-325mg) PO 2 tab Chris Etienne RN(Two tabs to go Physician;home. Dispensein ED) 2 OrderSheet [facility] Emergency Department [address] [place] [address] Phone #: ext- [phone] 12/05/2019 05:02 Patient: BENITA ANGEL Sex: M : 1980 Age: 39yGENERAL ORDERSOrder Description Priority Entered Acknowledged Initialed[Electronically signed by German Etienne RN (06:38 12/05/2019)][Electronically signed by Chris Lester (21:27 0)][Electronically locked by German Etienne RN (06:38 12/05/2019)] Name Value Range Interpretation Code Description Data Nena rce(s) Supporting Document(s) ID Date Data Source [id number] 12/05/2019 05:02:00 AM EDT [facility] 1 Medication Reconciliation Report [facility] Emergency Department [address] [place] [address] Phone #: ext- [phone] 12/05/2019 05:02 Patient: BENITA ANGEL Sex: M : 1980 Age: 39yWeight: 122.4 kgHeight/Length: 73 in.BMI: 35.6ALLERGIES: CodeineThe patient's Home Medications are listed below:THE FOLLOWING MEDICATIONS NEED TO BE RECONCILED: Gabapentin Oral Trileptal OralThe source(s) of the original Home Medication information:patientThe following Medications were given to the patient in the Emergency Department:Toradol [IM] IM 60 mg, administered: 12/05/2019 5:48:00 AMPercocet [PO] PO 2 tab, administered: 12/05/2019 6:33:00 AMThe following Medications were prescribed to the patient:ibuprofen 800 mg tablet Take 1 tablet every eight hours as needed for 10 days -- for pain. Dispense 30tablet. Refills: 0. Substitution permitted.Pharmacy - [facility] - [address] [facility] ; [place] [address]. .cyclobenzaprine 5 mg tablet Take 1 tablet every eight hours as needed for 7 days -- for muscle spasm /low back pain. Dispense 21 tablet. Refills: 0. Substitution permitted.Pharmacy - [facility] #25 - [address] [facility] ; [place] [address]. . -- Physician JessicaPercocet 5/325mg Two tabs to go home. Dispense in ED. -- Physician Jessica Name Value Range Interpretation Code Description Data Nena rce(s) Supporting Document(s) ID Date Data Source [id number] 12/05/2019 05:02:00 AM EDT [facility] 1 Medication Administration Record [facility] Emergency Department [address] [place] [address] Phone #: ext- [phone] 12/05/2019 05:02 Patient: BENITA ANGEL Sex: M : 1980 Age: 39yWeight: 122.4 kgHeight/Length: 73 inBMI: 35.6ALLERGIES: Codeine Date/Time Medication Administered Medication OrderedGiven TORADOL [IM] (KETOROLAC Toradol IM 60 mg (NOW)05:48 12/05/2019 TROMETHAMINE)German Etienne RN Dose: 60 mg IMGiven PERCOCET [PO] THM Percocet (5-325mg) PO 2 tab06:33 12/05/2019 (OXYCODONE-ACETAMINOPHEN) (Two tabs to go home. DispenseStmino Etienne RN Dose: 2 tab 5/325 mg Tablets PO in ED) Name Value Range Interpretation Code Description Data Nena rce(s) Supporting Document(s) ID Date Data Source [id number] 12/05/2019 05:02:00 AM EDT [facility] 1 General Instructions [facility] Emergency Department [address] [place] [address] Phone #: ext- [phone] 12/05/2019 05:02 Patient: BENITA ANGEL Sex: M : 1980 Age: 39yAcute and chronic nontraumatic lumbar back pain associated with muscle strain; degenerative joint diseaseof the lumbar spine; degenerative disc disease of the lumbar spine; disc herniation in the lumbar spine.(Possible L4/L5 disc herniation.). No radiculopathy, sciatica or neur ological deficit.INSTRUCTIONSLimit lifting.(Need MRI of L-spine if symptoms persist or worsen).Warnings: GENERAL WARNINGS: Return or contact your physician immediately if your conditionworsens or changes unexpectedly, if not improving as expected, or if other problems arise.Prescription Medications:ibuprofen 800 mg tablet Take 1 tablet every eight hours as needed for 10 days -- for pain. Dispense 30tablet. Refills: 0. Substitution permitted.[facility] - [address] [place] [address]. .cyclobenzaprine 5 mg tablet Take 1 tablet every eight hours as needed for 7 days -- for muscle spasm /low back pain. Dispense 21 tablet. Refills: 0. Substitution permitted.[facility] - [address] [place] [address]. .Percocet 5/325mg Two tabs to go home. Dispense in ED.Follow-up:Follow up with your doctor in three days if not better. Call for an appointment. Reason for referral:evaluation, treatment and Lower back pain / Possible HNP.Understanding of the discharge instructions verbalized by patient.Limit lifting. 2 General Instructions [facility] Emergency Department [address] [place] [address] Phone #: ext- [phone] 12/05/2019 05:02 Patient: BENITA ANGEL Sex: M : 1980 Age: 39y(Electronically signed by Chris Lester, Physician 12/06/2019 21:27) Name Value Range Interpretation Code Description Data Nena rce(s) Supporting Document(s) ID Date Data Source [id number] 12/05/2019 05:02:00 AM EDT [facility] 1 Clinical Report - Nurses [facility] Emergency Department [address] [place] [address] Phone #: [phone] ext [phone] 12/05/2019 05:02 Patient: BENITA ANGEL Sex: M : 1980 Age: 39yTRIAGEArrived by private vehicle, and accompanied by family.Triage time: 05:04 12/05/2019. Acuity: LEVEL 4.Chief Complaint: BACK PAIN.This started last night. Onset. (2000 hours). ( 2 bugling discs and has seen a surgeon and needs to quitsmoking for 6 months before surgery). He has had trouble walking.SEPSIS SCREEN: SIRS Screen negative. Sepsis Screen negative. No suspected or confirmed signs ofinfection present. --05:10 12/05/19 German Etienne RN05:04 12/05/19. BP: 138/89 (regular adult cuff) taken on the right arm, via an automated monitor, whilesitting. MAP: 105. HR: 76 (regular, normal rate and strong). RR: 18 (regular, unlabored and normal). [id number]: 99% on room air. Temp: 97.6 F (oral). Pain level now: 07/25. --05:12/05/19 German Etienne RN.Weight: 122.4 kg stated. Height/Length: 73 inches Per Patient. BMI: 35.6. --05:03 12/05/19 German Etienne RN.MedicationsGabapentin Oral. Trileptal Oral. --05:12/05/19 German Etienne RN.AllergiesCodeine. --05:12/05/19 German Etienne RN.PROBLEMS:Bipolar Disorder.Chronic Back Pain.Knee Effusion. --05:12/05/19 German Etienne RN.Medication/allergy information source: the patient. --05:12/05/19 German Etienne RN.HistorySOCIAL HX: Current every day heavy tobacco smoker (cigarette)- 1 pack per day. No alcohol use or druguse. He was offered HIV testing but declined and hepatitis C testing but declined. He has not traveledoutside the [place]Infectious disease exposure: No infectious disease exposure.SELF HARM ASSESSMENT: Self harm assessment was performed. The patient answered "no" to the 2 Clinical Report - Nurses [facility] Emergency Department [address] [place] [address] Phone #: ext- [phone] 12/05/2019 05:02 Patient: BENITA ANGEL Sex: M : 1980 Age: 39y question(s) "Have you recently felt down, depressed, or hopeless?", "Do you have thoughts of harming or killing yourself?", "Do you have a plan for harming or killing yourself?", "Have you recently had thoughts about harming or killing others?", "Do you have any dangerous items in your possession?", "Have you noticed less interest or pleasure in doing things?", "Are you here because you tried to hurt yourself?" and "Have you ever tried to hurt yourself before today?". ABUSE ASSESSMENT: No report of abuse. FALL RISK ASSESSMENT: Fall risk assessment completed. No risk factors identified. --05:10 12/05/19 German Etienne RN. Assessment The patient states feels the same. --05:10 12/05/19 German Etienne RN.PHYSICAL ASSE SSMENTAmbulatory to room.GENERAL / NEURO / PSYCH: Alert. Oriented X 4. Appears in pain.RESPIRATORY: Respirations not labored. Chest nontender. Breath sounds within normal limits.CVS: Normal heart rate and rhythm. Capillary refill less than 2 seconds.GI / : Abdomen soft and nontender. Bowel sounds within normal limits.EXTREMITIES: Sensation intact in extremities. ROM of extremities within normal limits.BACK: Normal inspection of the neck and back. Limited ROM of the back. --05:10 12/05/19 SARA Huerta.NURSING PROGRESS NOTESHead of bed elevated 45 degrees. Reassurance given to the patient. Call light placed in reach. Bedplaced in lowest position. Brakes of bed on. Patient ready for evaluation- ED physician notified. --05: German Etienne RN 05:48 12/05/2019 Toradol (Ketorolac Tromethamine) IM 60 mg given. Given in the right deltoid. Allergies verified and confirmed 5 rights. Information reviewed with patient including reason for taking this medication, signs of allergic reaction and precautions. Verbalizes understanding. --05:49 12/05/19 German Etienne RN 06:33 12/05/2019 Percocet (oxyCODONE-Acetaminophen) PO 5/325 mg Tablets 2 tab given. Allergies verified and confirmed 5 rights. Information reviewed with patient including reason for taking this medication, signs of allergic reaction, precautions and sedative warning. Verbalizes understanding. (This is a take home medication to take 1 tab every 4 hours as needed for pain. Patient verbalizes understanding of these instructions). --06:38 12/05/19 German Etienne RN.DISPOSITION / DISCHARGE Kev Coma Scale: 15- eyes open- spontaneous (4); best verbal response- oriented (5); best motor response- obeys commands (6). Condition at departure: improved. No learning barriers present. Discharge instructions provided and reviewed with the patient. Reviewed medication(s) side effects, 3 Clinical Report - Nurses [facility] Emergency Department [address] [place] [address] Phone #: ext- [phone] 12/05/2019 05:02 Patient: BENITA ANGEL Sex: M : 1980 Age: 39y precautions, dosing and course information. Prescription(s) sent electronically to pharmacy. Reviewed referral to family practice for followup. Activity restrictions (light lifting) reviewed. Patient verbalized understanding. Written instructions provided in Rwandan. The patient was discharged home. He left ambulatory and via private vehicle. Patient driving. --06:36 12/05/19 German Etienne RN 06:34 12/05/19. BP: 134/84 (regular adult cuff) taken on the right arm, via an automated monitor, while sitting. MAP: 100. HR: 76 (regular, normal rate and strong). RR: 18 (regular, unlabored and normal). O2 saturation: 99% on room air. Temp: 97.6 F (oral). Pain level now: 10. --06:36 12/05/19 German Etienne RN Departure time: 06:36 12/05/2019. --06:36 12/05/19 German Etienne RN.Locked/Released at 12/05/2019 06:38 by German Etienne RN Name Value Range Interpretation Code Description Data Nena rce(s) Supporting Document(s) ID Date Data Source [id number] 12/05/2019 05:02:00 AM EDT [facility] 1 Clinical Report - Physicians/Mid Levels [facility] Emergency Department [address] [place] [address] Phone #: ext- [phone] 12/05/2019 05:02 [id number] Sex[facility] M : 1980 Age: 39y Time Seen: 05:28 12/05/2019. Arrived- By private vehicle. Historian- patient. RETURN VISIT: recently seen in this ED by me within past 30 days. Seen now for a new unrelated complaint. Disposition decision: 06:19 12/05/2019.HISTORY OF PRESENT ILLNESS Chief Complaint: BACK INJURY, BACK PAIN and CHRONIC BACK PAIN. It is described as being moderate in degree and in the area of the lower lumbar spine. The quality is noted to be burning, aching, "pain" and similar to prior episodes. Onset- several years ago; Low back pain now worse after softball practice yesterday. Hx of chronic back pain. and it is still present and now worse. It was abrupt in onset and has been waxing/waning. Modifying factors- worsened by standing, walking, rotation of the body to the right or left, bending over or lifting. No bladder dysfunction, bowel dysfunct ion, sensory loss or motor loss. Patient notes a recent injury and the possibility of a recent injury. Mechanism of injury- (Playing softball). Occurred at an athletic field. No injury to the head or neck or other injury. Similar symptoms previously. Patient has had similar symptoms chronically. Recent medical care: The patient was seen recently at this facility. ( [facility] less than a month ago for knee pain).REVIEW OF SYSTEMSNo fever, chills, eye irritation, difficulty with urination or urinary frequency. No hematuria, skin rash,headache, depression or sore throat. No cough, difficulty breathing, chest pain, abdominal pain ornausea. No diarrhea or black stools.PAST HISTORYPast history not negative. See nurses notes. Other disease. He has had prior back pain. BipolarKnee pain. Surgeries: Vasectomy. (Oral surgery).SOCIAL HISTORYHeavy tobacco smoker (cigarette)- 1-2 packs per day. No alcohol use or drug use. No recent travel.ADDITIONAL NOTESThe nursing notes have been reviewed with agreement regarding the chief complaint, HPI, ROS, PMH andpatient medications and allergies.PHYSICAL EXAMVital Signs: 12/05/2019 05:04 BP: sitting 138/89. MAP: 105. HR: 76. RR: 18. O2 saturation: 99% on roomair. Temp: 97.6 F. Pain level now: 5/10. Have been reviewed and appear to be correct. Blood pressure 2 Clinical Report - Physicians/Mid Levels [facility] Emergency Department [address] [place] [address] Phone #: ext- [phone] 12/05/2019 05:02 Patient: BENITA ANGEL Sex: M : 1980 Age: 39y normal. Heart rate normal. Respiratory rate normal. Temperature normal. Oxygen saturation normal. Appearance: Alert. Anxious. Appears to be in pain. Patient in moderate distress. In distress. HEENT: Normal external inspection. Eyes: Pupils equal, round and reactive to light. ENT: Pharynx normal. Neck: Normal inspection. Neck nontender. Painless ROM. CVS: Heart sounds normal. Pulses normal. Respiratory: No respiratory distress. Painless inspiration. Breath sounds normal. Abdomen: No visible injury. Soft and nontender. Bowel sounds normal. No organomegaly. No mass. Back: Moderate muscle spasm of the right and left posterior back. Abnormal inspection. Back tenderness present. Moderate vertebral point tenderness over the lower lumbar spine. Soft tissue tenderness in the right lower, left lower and lower central lumbar area. No painless ROM. Moderately limited ROM in the back- in the lumbar spine: decreased flexion, extension, right lateral bending, left lateral bending and rotation to the right and left. No CVA tenderness. Skin: Skin warm and dry. Normal skin color. No rash. Normal skin turgor. Extremities: Extremities exhibit normal ROM. Extremities nontender. Neuro: Oriented X 3. Mood/affect normal. No motor deficit. No sensory deficit.LABS, X-RAYS, AND EKGLaboratory Tests: Laboratory tests have been ordered, with results reviewed and considered in themedical decision making process. Urinalysis: (ENRIQUE: 12/05/2019 05:40) ( [facility] 12/05/2019 05:57) Final results Test Result Flag Units (Reference) URINALYSIS URINALYSIS SOURCE R COLOR yellow (NORMAL: Yello CLARITY clear (NORMAL: Clear SPEC GRAVITY 1.005 (1.001 - 1.030 pH 6 (5 - 9) GLUCOSE NORM (NORMAL: Negat BILIRUBIN NEG (NORMAL: Negat KETONE NEG (NORMAL: Negat PROTEIN NEG (NORMAL: Negat NITRITE NEG (NORMAL: Negat BLOOD NEG (NORMAL: Negat LEUK EST 25 (NORMAL: Negat UROBILINOGEN NOR (less than 1.0 MICROSCOPIC See Below WBC 0 - 1 (NORMAL: NONE EPITHELIAL FEW (NORMAL: NONE CBC w Diff: (ENRIQUE: 12/05/2019 05:40) ( [facility] 12/05/2019 05:53) Final results Test Result Flag Units (Reference) CBC W/AUTOMATED DIFF COMPLETE BLOOD COUNT WBC 12.3 H 10/uL (4.2 - 11.0) RBC 5.28 10/uL (4.50 - 6.30) HEMOGLOBIN 15.6 g/dL (14.0 - 16.0) 3 Clinical Report - Physicians/Mid Levels [facility] Emergency Department [address] [place] [address] Phone #: ext- [phone] 12/05/2019 05:02 Patient: BENITA ANGEL Sex: M : 1980 Age: 39y HEMATOCRIT 44.9 % (41.0 - 51.0) MCV 85.0 fL (80.0 - 94.0) MCH 29.5 pg (27.0 - 34.0) MCHC 34.7 g/dL (31.0 - 36.0) RDW 12.9 % (11.5 - 14.8) PLATELETS 250 10/uL (150 - 450) MPV 10.6 H fL (7.4 - 10.4) NEUT 66.6 % (37.0 - 80.0) LYMPH 24.3 L % (25.0 - 40.0) MONO 6.8 % (3.0 - 8.0) EOS 1.7 % (0.0 - 7.0) BASO 0.4 % (0.0 - 2.0) %IG 0.2 H % (0.0 - 0.0) %NRBC 0.0 % (0.0 - 0.0) #NEUT 8.18 H 10/uL (2.00 - 6.90) #LYMPH 2.98 10/uL (0.60 - 3.40) #MONO 0.83 10/uL (0.00 - 0.90) #EOS 0.21 10/uL (0.00 - 0.70) #BASO 0.05 10/uL (0.00 - 0.20) #IG 0.03 10/uL (0.00 - 0.10) #NRBC 0.00 10/uL (0.00 - 0.00) MANUAL DIFF NOT INDICATED RBC MORPH NOT INDICATEDCMP: (ENRIQUE: 12/05/2019 05:40) ( MsgRcvd 12/05/2019 06:12) Final results Test Result Flag Units (Reference) COMPREHENSIVE METABOLIC PANEL COMPREHENSIVE METABOLIC PANEL SODIUM 140 mEq/L (134 - 153) POTASSIUM 3.8 mEq/L (3.6 - 5.0) CHLORIDE 104 mEq/L (98 - 107) CO2 25 MEQ/L (22 - 30) GLUCOSE 84 MG/DL (65 - 110) BUN 5 L MG/DL (7 - 21) CREATININE 0.8 MG/DL (0.7 - 1.5) BUN/CREAT 6 L (8 - 27) TOTAL PROTEIN 7.7 G/DL (6.3 - 8.2) ALBUMIN 4.2 G/DL (3.9 - 5.0) GLOBULIN 3.5 H GM/DL (2.4 - 3.2) A/G RATIO 1.2 (0.8 - 2.0) CALCIUM 9.1 MG/DL (8.4 - 10.2) TOTAL BILI <0.7 MG/DL (0.2 - 1.3) ALKALINE PHOS 91 U/L (38 - 126) SGOT/AST 17 U/L (5 - 40) SGPT/ALT 22 U/L (7 - 56) ANION GAP 11.0 mmol/L (8.0 - 16.0) AGE 39 yrs NON- AA GFR >60 mL/min AFR AMER GFR >60 mL/min Male GFR Interprentation 20-49 yrs >60 mL/min Bjgtve46-63 yrs >56 mL/min Normal 60- 69 yrs >49 mL/min Normal 70-79yrs>42 mL/min Normal 80 and above >35 mL/min Normal Female GFRInterpretation 20-39 yrs >60 mL/min Normal 40-49 yrs >58 mL/minNormal 50-59 yrs >51 mL/min Normal 60-69 yrs >45 mL/min Imdbhq12-86 yrs >39 mL/min Normal 80 and above >32 mL/min NormalCT ABD PEL W/O Oral W/O IV Contrast: (ENRIQUE: 12/05/2019 05:35) ( MsgRcvd 12/05/2019 07:21)Final results 4 Clinical Report - Physicians/Mid Levels [facility] Emergency Department [address] [place] [address] Phone #: ext- [phone] 12/05/2019 05:02 Patient: BENITA ANGEL Sex: M : 1980 Age: 39yExamCT ABD //T// PELV W/O ORAL [place] [address]---------NAME--------- NUMBER SEX AGE ADMIT DISC. XRAY# F/C RADHAMES Eric [id number] M 39 12/05/19 12/05/19 [id number] E/R DATE OF : 1980 M/R# [id number] #: [id number] TR-05 LOCATION: TRANSCRIBED: 12/05/19 7:[address] ABD //T// PELV W/O ORAL W/[place] [id number] COMPLETED:12/05/19 6:18 DLA [id number] Reason(s): Trauma/Injury PHYSICIAN: TAYLER RAYMOND = R A D I O L O G Y R E P O R T PATIENT HISTORY:ACTUAL DOSE 1347.8 mGy*cm abdominal and severe back pain s/p fallPatient male. Verification of 2 patient identifiers performed.Time Out performed. correct body part and side all verified prior toexamination. Exam has been sent to [facility] - If further informationis needed, the number is . Report will be faxed to ED and/orXray. / ABD/PEL (DICOM Hx)EXAM: CT Abdomen and Pelvis Without IV contrastCLINICAL HISTORY: ACTUAL DOSE 1347.8 mGy*cm abdominal and severe back pain s/pfall Patient male. Verification of 2 patient identifiers performed. Time Outperformed. correct body part and side all verified prior to examination. Exam has been sent to [facility] - If further information isneeded, the number is . Report will be faxed to ED and/or Xray.TECHNIQUE: Axial computed tomography images of the abdomen and pelvis withoutintravenous contrast.CONTRAST: No IV contrast.COMPARISON: None provided.FINDINGS:LUNG BASES: The lung bases appear clear. No pleural effusions are seen.LIVER: Unremarkable.GALLBLADDER AND BILE DUCTS: The gallbladder appears within normal limits. Noradioopaque gallstones are seen. No biliary ductal dilatation is evident.PANCREAS: Unremarkable.SPLEEN: Unremarkable.ADRENAL GLANDS: Unremarkable.KIDNEYS, URETERS, AND BLADDER: The kidneys appear within normal limits. There isno hydronephrosis or hydroureter. No urinary calculi are seen.STOMACH AND BOWEL: Mild fatty infiltration is seen in the wall of the small bowel and colon. 5 Clinical Report - Physicians/[facility] Emergency Department [address] [place] [address] Phone #: ext- [phone] 12/05/2019 05:02 Patient: BENITA ANGEL Sex: M : 1980 Age: 39y APPENDIX: No evidence of acute appendicitis on CT examination. PERITONEUM: No free fluid. No free air. LYMPH NODES: No lymphadenopathy is evident. REPRODUCTIVE: Unremarkable as visualized. VASCULATURE: No evidence of abdominal aortic aneurysm. BONES: No aggressive appearing osseous lesion. No acute osseous pathology evident. IMPRESSIONS: No traumatic injury in the abdomen or pelvis. Mild fatty infiltration is seen in the wall of the small bowel and colon suggesting chronic enterocolitis. While performing the above CT examination, radiation dose reduction was accomplished utilizing automated exposure control, adjusting of the mA and kV based on the patient's body size and/or the use of imperative reconstructive techniques. Electronically Signed By: Shashi Campa M.D. , Radiologist Date/Time: 12/05/19 07:20 . Note - Tests: (CT abdomen / pelvis - Possibly disc bulge at L4/L5 level. No fxs.).PROGRESS AND PROCEDURESCourse of Care: 06:Dec 05 2019. Patient is stable. 06:Dec 05 2019. Pt. may have small disc bulge at L4/L5 level in lower back. No fxs and no other findings related to lower back pain. Will discharge home. Disposition: Discharged to work in good and improved condition (06:Dec 05 2019). Condition: good.CLINICAL IMPRESSION Acute and chronic nontraumatic lumbar back pain associated with muscle strain; degenerative joint disease of the lumbar spine; degenerative disc disease of the lumbar spine; disc herniation in the lumbar spine. (Possible L4/L5 disc herniation.). No radiculopathy, sciatica or neurological deficit.INSTRUCTIONS 6 Clinical Report - Physicians/Mid Levels [facility] Emergency Department [address] [place] [address] Phone #: ext- [phone] 12/05/2019 05:02 Patient: BENITA ANGEL Sex: M : 1980 Age: 39y Limit lifting. (Need MRI of L-spine if symptoms persist or worsen). Warnings: GENERAL WARNINGS: Return or contact your physician immediately if your condition worsens or changes unexpectedly, if not improving as expected, or if other problems arise. Prescription Medications: ibuprofen 800 mg tablet Take 1 tablet every eight hours as needed for 10 days -- for pain. Dispense 30 tablet. Refills: 0. Substitution permitted. [facility] [address] [place] [address]. . cyclobenzaprine 5 mg tablet Take 1 tablet every eight hours as needed for 7 days -- for muscle spasm / low back pain. Dispense 21 tablet. Refills: 0. Substitution permitted. [facility] [address] [place] [address]. . Percocet 5/325mg Two tabs to go home. Dispense in ED. Follow-up: Follow up with your doctor in three days if not better. Call for an appointment. Reason for referral: evaluation, treatment and Lower back pain / Possible HNP. Understanding of the discharge instructions verbalized by patient.(Electronically signed by Chris Lester, Physician 12/06/2019 21:27) Name Value Range Interpretation Code Description Data Nena rce(s) Supporting Document(s) ID Date Data Source [id number] 12/05/2019 07:20:00 AM EDT [facility] [address] [place] [place] [address] ---------NAME--------- NUMBER SEX AGE ADMIT DISC. XRAY# F/C TYPE STANLEY Eric [id number] M 39 12/05/19 12/05/19 [id number] E/R DATE OF : 1980 M/R# [id number] #: [id number] TR-05 LOCATION: TRANSCRIBED: 12/05/19 7:[address] ABD //T// PELV W/O ORAL W/[place] [id number] COMPLETED:12/05/19 6:18 DLA [id number] Reason(s): Trauma/Injury PHYSICIAN: TAYLER BR R A D I O L O G Y R E P O R T PATIENT HISTORY:ACTUAL DOSE 1347.8 mGy*cm abdominal and severe back pain s/p fallPatient male. Verification of 2 patient identifiers performed.Time Out performed. correct body part and side all verified prior toexamination. Exam has been sent to [facility] - If further informationis needed, the number is . Report will be faxed to ED and/orXray. / ABD/PEL (DICOM Hx)EXAM: CT Abdomen and Pelvis Without IV contrastCLINICAL HISTORY: ACTUAL DOSE 1347.8 mGy*cm abdominal and severe back pain s/pfall Patient male. Verification of 2 patient identifiers performed. Time Outperfo rmed. correct body part and side all verified prior to examination. Exam has been sent to [facility] - If further information isneeded, the number is . Report will be faxed to ED and/or Xray.TECHNIQUE: Axial computed tomography images of the abdomen and pelvis withoutintravenous contrast.CONTRAST: No IV contrast.COMPARISON: None provided.FINDINGS:LUNG BASES: The lung bases appear clear. No pleural effusions are seen.LIVER: Unremarkable.GALLBLADDER AND BILE DUCTS: The gallbladder appears within normal limits. Noradioopaque gallstones are seen. No biliary ductal dilatation is evident.PANCREAS: Unremarkable.SPLEEN: Unremarkable.ADRENAL GLANDS: Unremarkable.KIDNEYS, URETERS, AND BLADDER: The kidneys appear within normal limits. There isno hydronephrosis or hydroureter. No urinary calculi are seen.STOMACH AND BOWEL: Mild fatty infiltration is seen in the wall of the smallbowel and colon.APPENDIX: No evidence of acute appendicitis on CT examination.PERITONEUM: No free fluid. No free air.LYMPH NODES: No lymphadenopathy is evident.REPRODUCTIVE: Unremarkable as visualized.VASCULATURE: No evidence of abdominal aortic aneurysm.BONES: No aggressive appearing osseous lesion. No acute osseous pathologyevident.IMPRESSIONS:No traumatic injury in the abdomen or pelvis.Mild fatty infiltration is seen in the wall of the small bowel and colonsuggesting chronic enterocolitis.While performing the above CT examination, radiation dose reduction wasaccomplished utilizing automated exposure control, adjusting of the mA and kVbased on the patient's body size and/or the use of imperative reconstructivetechniques.Electronically Signed By:Shashi Campa M.D. , RadiologistDate/Time: 12/05/19 07:20 Name Value Range Interpretation Code Description Data Nena rce(s) Supporting Document(s) ID Date Data Source [id number] 12/05/2019 06:12:00 AM EDT [facility] Name Value Range Interpretation Code Description Data Nena rce(s) Supporting Document(s) COMPREHENSIVE METABOLIC PANEL [facility] COMPREHENSIVE METABOLIC PANEL Sodium [Moles/volume] in Serum or Plasma 140 mEq/L 134 - 153 [facility] Potassium [Moles/volume] in Serum or Plasma 3.8 mEq/L 3.6 - 5.0 [facility] Chloride [Moles/volume] in Serum or Plasma 104 mEq/L 98 - 107 [facility] Carbon dioxide, total [Moles/volume] in Serum or Plasma 25 MEQ/L 22 - 30 [facility] Glucose [Mass/volume] in Serum or Plasma 84 MG/DL 65 - 110 [facility] BUN 5 MG/DL 7 - 21 L [facility] al Creatinine [Mass/volume] in Serum or Plasma 0.8 MG/DL 0.7 - 1.5 [facility] BUN/CREAT 6 8 - 27 L [facility] Protein [Mass/volume] in Serum or Plasma 7.7 G/DL 6.3 - 8.2 [facility] Albumin [Mass/volume] in Serum or Plasma 4.2 G/DL 3.9 - 5.0 [facility] Globulin [Mass/volume] in Serum by calculation 3.5 GM/DL 2.4 - 3.2 H [facility] A/G RATIO 1.2 0.8 - 2.0 [facility] Calcium [Mass/volume] in Serum or Plasma 9.1 MG/DL 8.4 - 10.2 [facility] Bilirubin.total [Mass/volume] in Serum or Plasma <0.7 MG/DL 0.2 - 1.3 [facility] Alkaline phosphatase [Enzymatic activity/volume] in Serum or Plasma 91 U/L 38 - 126 [facility] Aspartate aminotransferase [Enzymatic activity/volume] in Serum or Plasma 17 U/L 5 - 40 [facility] Alanine aminotransferase [Enzymatic activity/volume] in Seru m or Plasma 22 U/L 7 - 56 [facility] Anion gap 3 in Serum or Plasma 11.0 mmol/L 8.0 - 16.0 [facility] AGE 39 yrs [facility] NON-AA GFR >60 mL/min [facility] ital AFR AMER GFR >60 mL/min [facility] Male GFR In terprentation 20-49 yrs >60 mL/min Normal 50-59 yrs >56 mL/min Normal 60-69 yrs >49 mL/min Normal 70-79yrs >42 mL/min Normal 80 and above >35 mL/min Normal Female GFR Interpretation 20-39 yrs >60 mL/min Normal 40-49 yrs >58 mL/min Normal 50-59 yrs >51 mL/min Normal 60-69 yrs >45 mL/min Normal 70-79 yrs >39 mL/min Normal 80 and above >32 mL/min Normal ID Date Data Source [id number] 12/05/2019 05:56:00 AM EDT [facility] Name Value Range Interpretation Code Description Data Nena rce(s) Supporting Document(s) [facility] COL[facility] yellow NORMAL: Yellow [facility] CLARITY clear NORMAL: Clear [facility] Specific gravity of Urine by Test strip 1.005 1.001 - 1.030 [facility] pH 6 5 - 9 [facility] al Glucose [Mass/volume] in Urine by Test strip NORM NORMAL: Negat [facility] Bilirubin.total [Presence] in Urine by Test strip NEG NORMAL: Negative [facility] Ketones [Presence] in Urine by Test strip NEG NORMAL: Negative [facility] Protein [Mass/volume] in Urine by Test strip NEG NORMAL: Negat [facility] Nitrite [Presence] in Urine by Test strip NEG NORMAL: Negative [facility] BLOOD NEG NORMAL: Negative [facility] Leukocyte esterase [Presence] in Urine by Test strip 25 CECI L: Negative [facility] Urobilinogen [Mass/volume] in Urine by Test strip NOR less elio n 1.0 mg/dL [facility] MICROSCOPIC See Below [facility] ital WBC 0 - 1 NORMAL: NONE SEEN [facility] EPITHELIAL FEW NORMAL: NONE SEEN [facility] ID Date Data Source [id number] 12/05/2019 05:52:00 AM EDT [facility] Name Value Range Interpretation Code Description Data Nena rce(s) Supporting Document(s) CBC W/AUTOMATED DIFF [facility] COMPLETE BLOOD COUNT Leukocytes [#/volume] in Blood by Automated count 12.3 10^3/uL 4.2 - 11.0 H [facility] Erythrocytes [#/volume] in Blood by Automated count 5.28 10^6/uL 4. 50 - 6.30 [facility] Hemoglobin [Mass/volume] in Blood 15.6 g/dL 14.0 - 16.0 [facility] Hematocrit [Volume Fraction] of Blood by Automated count 44.9 % 4 1.0 - 51.0 [facility] Erythrocyte mean corpuscular volume [Entitic volume] by Auto mated count 85.0 fL 80.0 - 94.0 [facility] Erythrocyte mean corpuscular hemoglobin [Entitic mass] by Automated count 29.5 pg 27.0 - 34.0 [facility] Erythrocyte mean corpuscular hemoglobin concentration [Mass/volume] by Automated count 34.7 g/dL 31.0 - 36.0 [facility] Erythrocyte distribution width [Ratio] by Automated count 12.9 % 11.5 - 14.8 [facility] Platelets [#/volume] in Blood by Automated count 250 10^3/uL 150 - 45 0 [facility] Platelet mean volume [Entitic volume] in Blood by Automated count 10.6 fL 7.4 - 10.4 H [facility] Neutrophils/100 leukocytes in Blood by Automated count 66.6 % 37. 0 - 80.0 [facility] Lymphocytes/100 leukocytes in Blood by Manual count 24.3 % 25.0 - 40.0 L [facility] Monocytes/100 leukocytes in Blood by Automated count 6.8 % 3.0 - 8.0 [facility] Eosinophils/100 leukocytes in Blood by Automated count 1.7 % 0.0 - 7.0 [facility] Basophils/100 leukocytes in Blood by Automated count 0.4 % 0.0 - 2.0 [facility] %IG 0.2 % 0.0 - 0.0 [facility] %NRBC 0.0 % 0.0 - 0.0 [facility] al Neutrophils [#/volume] in Blood by Automated count 8.18 10^3/uL 2.00 - 6.90 H [facility] Lymphocytes [#/volume] in Blood by Automated count 2.98 10^3/uL 0.60 - 3.40 [facility] Monocytes [#/volume] in Blood by Automated count 0.83 10^3/uL 0.00 - 0.90 [facility] Eosinophils [#/volume] in Blood by Automated count 0.21 10^3/uL 0.00 - 0.70 [facility] Basophils [#/volume] in Blood by Automated count 0.05 10^3/uL 0.00 - 0.20 [facility] #IG 0.03 10^3/uL 0.00 - 0.10 [facility] #NRBC 0.00 10^3/uL 0.00 - 0.00 [facility] MANUAL DIFF NOT INDICATED [facility] RBC MORPH NOT INDICATED [facility] spital Procedure Social History Code Duration Value Status Description Data Source(s ) Smoking 12/13/2020 12:00:00 AM EDT Unknown if ever smoked comp leted Unknown if ever smoked [facility]) Smoking 12/01/2020 12:00:00 AM EDT Unknown if ever smoked comp leted Unknown if ever smoked [facility] ([facility]) Smoking 10/26/2020 12:00:00 AM EDT Unknown if ever smoked comp leted Unknown if ever smoked [facility] ([facility]) Smoking 10/18/2020 12:00:00 AM EDT Unknown if ever smoked comp leted Unknown if ever smoked [facility] ([facility]) Smoking 10/14/2020 12:00:00 AM EDT Unknown if ever smoked comp leted Unknown if ever smoked [facility] ([facility]) Smoking 09/20/2020 12:00:00 AM EDT Unknown if ever smoked comp leted Unknown if ever smoked [facility] ([facility]) Smoking 09/16/2020 12:00:00 AM EDT Unknown if ever smoked comp leted Unknown if ever smoked [facility] ([facility]) Smoking 08/17/2020 12:00:00 AM EDT Unknown if ever smoked comp leted Unknown if ever smoked [facility] ([facility]) Smoking 08/03/2020 12:00:00 AM EDT Unknown if ever smoked comp leted Unknown if ever smoked [facility] ([facility]) Smoking 07/01/2020 12:00:00 AM EDT Unknown if ever smoked comp leted Unknown if ever smoked [facility] ([facility]) Smoking 06/10/2020 12:00:00 AM EDT Unknown if ever smoked comp leted Unknown if ever smoked [facility] ([facility]) Smoking 05/17/2020 12:00:00 AM EST Unknown if ever smoked comp leted Unknown if ever smoked [facility] ([facility]) Smoking 05/11/2020 12:00:00 AM EST Unknown if ever smoked comp leted Unknown if ever smoked [facility] ([facility]) Smoking 04/28/2020 12:00:00 AM EST Unknown if ever smoked comp leted Unknown if ever smoked [facility] ([facility]) Smoking 04/05/2020 12:00:00 AM EST Unknown if ever smoked comp leted Unknown if ever smoked [facility] ([facility]) Smoking 03/30/2020 12:00:00 AM EST Unknown if ever smoked comp leted Unknown if ever smoked [facility] ([facility]) Smoking 02/24/2020 12:00:00 AM EST Unknown if ever smoked comp leted Unknown if ever smoked [facility] ([facility]) Smoking 02/08/2020 12:00:00 AM EST Unknown if ever smoked comp leted Unknown if ever smoked [facility] ([facility]) Smoking 01/15/2020 12:00:00 AM EDT Unknown if ever smoked comp leted Unknown if ever smoked [facility] ([facility]) Smoking 12/23/2019 12:00:00 AM EDT Unknown if ever smoked comp leted Unknown if ever smoked [facility] ([facility]) Smoking 12/11/2019 12:00:00 AM EDT Unknown if ever smoked [facility] Smoking 11/20/2019 12:00:00 AM EDT Unknown if ever smoked comp leted Unknown if ever smoked [facility] Vital Signs ID Date Data Source UNK Name Value Range Interpretation Code Description Data Source(s) Body height 0.00 in Normal (applies to non-numeric resu lts) 0.00 in [facility] ([facility]) Body weight Measured 0.00 lbs Normal (applies to n on-numeric results) 0.00 lbs [facility] ([facility]) Body mass index (BMI) [Ratio] 0.00 kg/m2 No rmal (applies to non-numeric results) 0.00 kg/m2 [facility] ([facility]) Systolic blood pressure 0 mm[Hg] Normal (applies t o non-numeric results) 0 mm[Hg] [facility] ([facility]) Diastolic blood pressure 0 mm[Hg] Normal (applies to non-numeric results) 0 mm[Hg] [facility] ([facility]) Body height 0.00 in Normal (applies to non-numeric resu lts) 0.00 in [facility] ([facility]) Body weight Measured 0.00 lbs Normal (applies to n on-numeric results) 0.00 lbs [facility] ([facility]) Body mass index (BMI) [Ratio] 0.00 kg/m2 No rmal (applies to non-numeric results) 0.00 kg/m2 [facility] ([facility]) Systolic blood pressure 0 mm[Hg] Normal (applies t o non-numeric results) 0 mm[Hg] [facility] ([facility]) Diastolic blood pressure 0 mm[Hg] Normal (applies to non-numeric results) 0 mm[Hg] [facility] ([facility]) Body height 0.00 in Normal (applies to non-numeric resu lts) 0.00 in [facility] ([facility]) Body weight Measured 0.00 lbs Normal (applies to n on-numeric results) 0.00 lbs [facility] ([facility]) Body mass index (BMI) [Ratio] 0.00 kg/m2 No rmal (applies to non-numeric results) 0.00 kg/m2 [facility] ([facility]) Systolic blood pressure 0 mm[Hg] Normal (applies t o non-numeric results) 0 mm[Hg] [facility] ([facility]) Diastolic blood pressure 0 mm[Hg] Normal (applies to non-numeric results) 0 mm[Hg] [facility] ([facility])
[2021-01-11] MEDS ORDERED: OLAN15TA10 PO (02:45)
[2021-01-11 05:31] VITALS: BP 141/89
[2021-01-11] MEDS ORDERED: CEPH500C PO (05:48)
[2021-01-11] MEDS ORDERED: CEPHALEXIN 500 MG CAP PO ONE (05:50)
== END 2021-01-11 06:03 | disposition home or self-care (01) ==
LOC: M ED 02:31
DX: L03.311 Cellulitis of abdominal wall (principal); F99 Mental disorder, not otherwise specified; F17.290 Nicotine dependence, other tobacco product, uncomplicated; Z88.5 Allergy status to narcotic agent; Z79.899 Other long term (current) drug therapy

== ENCOUNTER 2021-06-04 13:59 | Emergency (ER) | payer MEDICARE, MEDICAID ==
[~2021-06-04] VITALS: Ht 182.9 cm; Wt 127.3 kg
[~2021-06-04 13:59] MED LIST changes: +CEPH500C PO; -LATU40TA; +LATU40TA2; +OLAN15TA10 PO
[2021-06-04] MEDS ORDERED: PERCOCET 5MG/325MG TAB PO ONE (15:40)
[2021-06-04] MEDS ORDERED: CEPH500C PO (16:15)
[2021-06-04 16:19] VITALS: BP 140/72
== END 2021-06-04 16:21 | disposition home or self-care (01) ==
LOC: M ED 13:59
DX: S90.411A Abrasion, right great toe, initial encounter (principal); M79.89 Other specified soft tissue disorders; W22.8XXA Striking against or struck by other objects, initial encounter; Y92.098 Other place in other non-institutional residence as the place of occurrence of the external cause; Y93.01 Activity, walking, marching and hiking; Y99.8 Other external cause status; I10 Essential (primary) hypertension; J44.9 Chronic obstructive pulmonary disease, unspecified; F17.210 Nicotine dependence, cigarettes, uncomplicated; Z88.5 Allergy status to narcotic agent; Z79.899 Other long term (current) drug therapy

== ENCOUNTER → 2022-04-11 | Outpatient (CLI) | payer MEDICARE, MEDICAID ==
[2022-04-11 12:50] LABS: HEMATOCRIT 47.7 % (42.0-52.0); HEMOGLOBIN 15.9 g/dl (13.5-17.5); MEAN CORPUSCULAR HEMOGLOBIN 29.6 pg (27.0-33.0); MEAN CORPUSCULAR HGB CONC 33.3 g/dl (32.0-36.5); MEAN CORPUSCULAR VOLUME 88.8 fl (80.0-96.0); PLATELET COUNT, AUTOMATED 270 10^3/uL (150-450); RED BLOOD COUNT 5.37 10^6/uL (4.30-6.10); WHITE BLOOD COUNT 10.8 10^3/uL (4.0-10.0)
[2022-04-11 13:20] LABS: ALBUMIN 3.7 G/DL (3.2-5.2); ALKALINE PHOSPHATASE 79 U/L (46-116); ALT/SGPT 28 U/L (7.0-40); AST/SGOT 17 U/L (<34); BILIRUBIN,TOTAL 0.3 MG/DL (0.3-1.2); BLOOD UREA NITROGEN 10 MG/DL (9-23); CALCIUM LEVEL 8.9 MG/DL (8.5-10.1); CARBON DIOXIDE LEVEL 29 MMOL/L (20-31); CHLORIDE LEVEL 108 MMOL/L (98-107); CHOLESTEROL LEVEL 210 MG/DL (<200); CHOLESTEROL RISK RATIO 5.27 (<5); CREATININE FOR GFR 0.93 MG/DL (0.70-1.30); GLOMERULAR FILTRATION RATE > 60.0 (>60); GLUCOSE, FASTING 99 MG/DL (60-100); HDL CHOLESTEROL 39.8 MG/DL (>40); LDL CHOLESTEROL 150.2 MG/DL (<100); NON-HDL-C 170 MG/DL; SODIUM LEVEL 141 MMOL/L (136-145); TOTAL PROTEIN 6.9 G/DL (5.7-8.2); TRIGLYCERIDES LEVEL 100 MG/DL (<150)
[2022-04-11 13:22] LABS: THYROID STIMULATING HORMONE 2.544 uIU/ML (0.55-4.78)
== END ==
LOC: M WUC 09:16
PROVIDERS: ATTEND Physician Assistant
DX: E78.2 Mixed hyperlipidemia (principal)

== ENCOUNTER 2022-05-06 14:06 | Emergency (ER) | payer MEDICARE, MEDICAID ==
[~2022-05-06] VITALS: Ht 182.9 cm; Wt 119.1 kg
[2022-05-06] MEDS ORDERED: LATU1TAB (14:20)
[2022-05-06] MEDS ORDERED: AMOX875T2 PO (14:49)
[2022-05-06] MEDS ORDERED: ACETAMINOPHEN TAB 650MG DOSE (2X325MG) PO ONE (14:50)
[2022-05-06] MEDS ORDERED: MUCI600T31 PO (14:50)
[2022-05-06] MEDS ORDERED: IBUPROFEN 600MG TAB PO ONE (14:50)
[2022-05-06 15:42] VITALS: BP 141/80
== END 2022-05-06 15:43 | disposition home or self-care (01) ==
LOC: M ED 14:06
DX: J01.10 Acute frontal sinusitis, unspecified (principal); H66.93 Otitis media, unspecified, bilateral; F17.200 Nicotine dependence, unspecified, uncomplicated; Z88.5 Allergy status to narcotic agent

== ENCOUNTER → 2022-05-14 | Outpatient (REF) | payer MEDICARE, MEDICAID ==
[~2022-05-14] MED LIST changes: +AMOX875T2 PO; +LATU1TAB; +MUCI600T31 PO
[2022-05-14 16:50] LABS: BASO # 0.1 10^3/uL (0.0-0.2); BASO % 0.5 % (0.0-1.0); EOS # 0.2 10^3/uL (0.0-0.5); EOS % 1.8 % (0.0-3.0); HEMATOCRIT 47.4 % (42.0-52.0); HEMOGLOBIN 16.3 g/dl (13.5-17.5); LYMPH # 2.6 10^3/uL (1.5-5.0); LYMPH % 27.5 % (24.0-44.0); MEAN CORPUSCULAR HEMOGLOBIN 30.1 pg (27.0-33.0); MEAN CORPUSCULAR HGB CONC 34.4 g/dl (32.0-36.5); MEAN CORPUSCULAR VOLUME 87.5 fl (80.0-96.0); MONO # 0.5 10^3/uL (0.0-0.8); MONO % 5.6 % (2.0-8.0); NEUTROPHILS # 6.1 10^3/uL (1.5-8.5); NEUTROPHILS % 64.3 % (36.0-66.0); PLATELET COUNT, AUTOMATED 267 10^3/uL (150-450); RED BLOOD COUNT 5.42 10^6/uL (4.30-6.10); WHITE BLOOD COUNT 9.4 10^3/uL (4.0-10.0)
== END ==
LOC: M LAB REF 16:15
PROVIDERS: ATTEND Physician Assistant
DX: D72.829 Elevated white blood cell count, unspecified (principal)

== ENCOUNTER → 2023-01-23 | Outpatient (REF) | payer MEDICARE, MEDICAID ==
[~2023-01-23] MED LIST changes: +FLUT50SP17; -FLUTISP
[2023-01-23 17:49] LABS: HEMOGLOBIN A1c 5.1 % (4.0-6.0)
== END ==
LOC: M LAB REF 16:33
PROVIDERS: ATTEND Physician Assistant
DX: R73.03 Prediabetes (principal)

== ENCOUNTER 2023-03-01 11:58 | Emergency (ER) | payer MEDICARE, MEDICAID ==
[~2023-03-01] VITALS: Ht 177.8 cm; Wt 120.7 kg
[~2023-03-01 11:58] MED LIST changes: -FLUT50SP17; +FLUTISP
[2023-03-01 11:59] VITALS: BP 181/97; TEMP 97.2; O2SAT 97
[2023-03-01] MEDS ORDERED: SUMA25TA3 (12:09)
[2023-03-01] MEDS ORDERED: COLC0.6T47 PO (14:02)
== END 2023-03-01 14:04 | disposition home or self-care (01) ==
LOC: M ED 11:58
DX: M79.645 Pain in left finger(s) (principal); E11.9 Type 2 diabetes mellitus without complications; I10 Essential (primary) hypertension; E78.5 Hyperlipidemia, unspecified; F41.9 Anxiety disorder, unspecified; F32.A Depression, unspecified; F31.9 Bipolar disorder, unspecified; J45.909 Unspecified asthma, uncomplicated; F17.200 Nicotine dependence, unspecified, uncomplicated; Z79.899 Other long term (current) drug therapy; Z88.5 Allergy status to narcotic agent

== ENCOUNTER → 2024-06-30 | Outpatient (CLI) | payer MEDICARE, MEDICAID ==
[~2024-06-30] MED LIST changes: -AZEL0.055; +AZEL1SPR4; +COLC0.6T47 PO; +FLUO-365; -FLUO20CA22; +GABA-1490; -GABA600T4; +SUMA25TA3
[2024-06-30 12:58] LABS: URIC ACID 5.6 MG/DL (3.7-9.2)
[2024-06-30 13:00] LABS: BASO # 0.1 10^3/uL (0.0-0.2); BASO % 0.5 % (0.0-1.0); EOS # 0.2 10^3/uL (0.0-0.5); HEMATOCRIT 47.7 % (42.0-52.0); HEMOGLOBIN 15.8 g/dl (13.5-17.5); LYMPH # 2.8 10^3/uL (1.5-5.0); LYMPH % 28.2 % (24.0-44.0); MEAN CORPUSCULAR HEMOGLOBIN 29.2 pg (27.0-33.0); MEAN CORPUSCULAR HGB CONC 33.1 g/dl (32.0-36.5); MEAN CORPUSCULAR VOLUME 88.2 fl (80.0-96.0); MONO # 0.7 10^3/uL (0.0-0.8); MONO % 6.6 % (2.0-8.0); NEUTROPHILS # 6.2 10^3/uL (1.5-8.5); NEUTROPHILS % 62.4 % (36.0-66.0); PLATELET COUNT, AUTOMATED 264 10^3/uL (150-450); RED BLOOD COUNT 5.41 10^6/uL (4.30-6.10)
[2024-06-30 13:01] LABS: BLOOD UREA NITROGEN 10 MG/DL (9-23); CALCIUM LEVEL 9.2 MG/DL (8.5-10.1); CARBON DIOXIDE LEVEL 30 MMOL/L (20-31); CHLORIDE LEVEL 107 MMOL/L (98-107); CHOLESTEROL LEVEL 206 MG/DL (<200); CHOLESTEROL RISK RATIO 4.33 (<5); CREATININE FOR GFR 0.83 MG/DL (0.70-1.30); GLOMERULAR FILTRATION RATE > 90.0 (>60); GLUCOSE, FASTING 101 MG/DL (60-100); HDL CHOLESTEROL 47.5 MG/DL (>40); LDL CHOLESTEROL 137.3 MG/DL (<100); NON-HDL-C 158.5 MG/DL; POTASSIUM SERUM 4.1 MMOL/L (3.5-5.1); SODIUM LEVEL 143 MMOL/L (136-145); TRIGLYCERIDES LEVEL 106 MG/DL (<150)
== END ==
LOC: M WUC 10:17
PROVIDERS: ATTEND Physician Assistant
DX: M79.671 Pain in right foot (principal); E78.00 Pure hypercholesterolemia, unspecified

== ENCOUNTER → 2024-10-29 | Outpatient (CLI) | payer MEDICARE, MEDICAID ==
[~2024-10-29] MED LIST changes: -PRAV40TA2; +PRAV40TA85
== END ==
LOC: M WUC 11:14
PROVIDERS: ATTEND Student in an Organized Health Care Education/Training Program
DX: M25.532 Pain in left wrist (principal)